=== PATIENT | female | born 1970 | race Caucasian/White ===

== ENCOUNTER 2017-03-23 15:02 | Emergency (ER) | payer OTHER ==
[2017-03-23 15:33] LABS: #Basophils 0.1 thou/uL (0.0-0.2); #Lymphocytes 2.1 thou/uL (1.20-3.40); #Monocytes 0.5 thou/uL (0.11-0.59); #Neutrophils 3.5 thou/uL (1.40-6.50); %Basophils 0.8 % (0.0-1.0); %Eosinophils 0.6 % (0.0-10.0); %Lymphocytes 33.8 % (21.0-51.0); %Monocytes 7.7 % (0.0-10.0); Hematocrit 39.5 % (36.0-47.0); Mean Platelet Volume 7.1 fL (7.4-10.4); Red Blood Cell (RBC) Count 4.11 mill/uL (4.20-5.40); White Blood Cell (WBC) Count 6.2 thou/uL (4.8-10.8)
[2017-03-23 15:57] LABS: ALT (SGPT) 13 U/L (8-55); AST (SGOT) 18 U/L (5-34); Alkaline Phosphatase 63 U/L (40-150); Anion Gap 14 mmol/L (10-20); BUN (Urea Nitrogen) 8 mg/dL (7.0-18.7); Bilirubin, Total 0.7 mg/dL (0.2-1.2); Calc. Creatinine Clearance 0 mL/min (70-130); Calcium 9.9 mg/dL (7.8-10.44); Carbon Dioxide 27 mmol/L (22-29); Chloride 101 mmol/L (98-107); Estimated GFR-MDRD 74; Globulin 2.8 g/dL (2.4-3.5); Lipase 90 U/L (8-78); Protein, Total 7.4 g/dL (6.0-8.3)
[2017-03-23 15:58] LABS: Bilirubin Negative (Negative); Blood, Urine Trace (Negative); Glucose, Urine (Dipstick) Negative (Negative); Ketone, Urine Negative (Negative); Nitrite Negative (Negative); Protein, Urine (Dipstick) Negative (Neg-Trace); Urobilinogen 0.2 mg/dL (0.2-1.0)
[2017-03-23 16:00] LABS: Bacteria/HPF None Seen HPF (None Seen); Hyaline Casts/LPF 0-3 HYALINE CAST LPF (0-3 Hyaline); Squamous Epithelial 0-3 HPF (0-3); WBC/HPF None Seen HPF (0-3)
[2017-03-23] MEDS ORDERED: Promethazine HCl 25 MG/ML VIAL ONE (16:31)
--- NOTE | 2017-03-23 18:50 | ULT ---
RIGHT UPPER QUADRANT ULTRASOUND: History: Abdominal pain. Comparison: CT abdomen and pelvis, 10-09-16. FINDINGS: Main portable vein is mildly distended. Gallbladder is normal. Hepatic echotexture is slightly increased. Common bowel duct measures 4 mm, n ormal. No cholelithiasis. The right kidney measures 9.9 x 4.1 x 4.2 cm. Mild right sided hydronephrosis. The pancreas is unremarkable. The spleen is unremarkable. IMPRESSION: 1. Mild right sided hydronephrosis. Otherwise, unremarkable exam. POS: OFF
--- NOTE | 2017-03-23 19:41 | CT ---
ABDOMEN AND PELVIS CT SCAN WITHOUT IV CONTRAST: History: 46-year-old female with nausea and vomiting. Surgical history of prior appendectomy, hysterectomy. Comparison: 10-09-16 FINDINGS: Noncontrast abdomen and pelvis CT scan is performed. The lung bases are clear. Small stable cysts in the anterior left lobe of the liver. Gallbladder, pa ncreas, spleen, and adrenal glands are unremarkable. No renal calculus or acute obstruction. Ther e is some very slight fullness of both the right and left renal upper collecting systems although th is is stable. Very small fat containing umbilical hernia. Status post appendectomy and hysterectomy. No abscess, adenopathy, or abnormal fluid collection. IMPRESSION: Unremarkable abdomen and pelvic CT scan. Stable appearance from prior study. No significant new proc ess. POS: JODIE
== END 2017-03-23 19:09 | disposition home or self-care (01) ==
LOC: ERS 15:02
DX: R10.11 Right upper quadrant pain (principal); R11.2 Nausea with vomiting, unspecified; F32.9 Major depressive disorder, single episode, unspecified; F41.9 Anxiety disorder, unspecified; E78.5 Hyperlipidemia, unspecified; J44.9 Chronic obstructive pulmonary disease, unspecified; Z86.19 Personal history of other infectious and parasitic diseases; Z87.891 Personal history of nicotine dependence
CPT/HCPCS: 36415; 74176; 76705; 80053; 81003; 81015; 83690; 85025; 96365; 96375; J2270; J2550

== ENCOUNTER 2017-04-13 08:29 | Outpatient (CLI) | payer OTHER ==
--- NOTE | 2017-04-13 15:52 | NM ---
HEPATOBILIARY SCAN: Date: 04/13/17 HISTORY: Gastroesophageal reflux disease without esophagitis, abdominal pain. No cholelithiasis on ultrasound of 03/23/17. RADIOPHARMACEUTICAL: 5.1 mCi technetium-99m mebrofenin injected intravenously. FINDINGS: There is good tracer extraction by the liver with prompt excretion into the biliary tract and small bowel loops and normal filling of the gallbladder. The calculated gallbladder ejection fraction foll owing an oral fatty meal measures 75%. IMPRESSION: Normal exam. POS: JODIE
== END 2017-04-13 08:30 | disposition home or self-care (01) ==
LOC: NM 08:29
PROVIDERS: ATTEND Internal Medicine
DX: R10.13 Epigastric pain (principal); K86.1 Other chronic pancreatitis; K21.9 Gastro-esophageal reflux disease without esophagitis
CPT/HCPCS: 78227; A9537

== ENCOUNTER 2017-04-30 18:21 | Observation (INO) | payer OTHER ==
[2017-04-30 19:15] LABS: #Basophils 0.1 thou/uL (0.0-0.2); #Eosinphils 0.1 thou/uL (0.0-0.7); #Monocytes 0.5 thou/uL (0.11-0.59); #Neutrophils 2.9 thou/uL (1.40-6.50); %Basophils 1.2 % (0.0-1.0); %Eosinophils 2.6 % (0.0-10.0); %Lymphocytes 35.3 % (21.0-51.0); %Monocytes 9.4 % (0.0-10.0); Hematocrit 35.6 % (36.0-47.0); Mean Platelet Volume 7.7 fL (7.4-10.4); Red Blood Cell (RBC) Count 3.68 mill/uL (4.20-5.40); White Blood Cell (WBC) Count 5.7 thou/uL (4.8-10.8)
--- NOTE | 2017-04-30 19:21 | RAD ---
FRONTAL VIEW CHEST 04/30/17 COMPARISON: 10/09/16 INDICATION: Pain. FINDINGS: The lungs are hyperinflated without consolidation or effusion. The cardiac silhouette is at upper limits of normal in size. IMPRESSION: No focal consolidation. POS: [facility]
[2017-04-30 19:33] LABS: Bilirubin Negative (Negative); Glucose, Urine (Dipstick) Negative (Negative); Nitrite Negative (Negative)
[2017-04-30 19:33] LABS: ALT (SGPT) 32 U/L (8-55); AST (SGOT) 26 U/L (5-34); Alkaline Phosphatase 60 U/L (40-150); Anion Gap 12 mmol/L (10-20); BUN (Urea Nitrogen) 11 mg/dL (7.0-18.7); Bilirubin, Total 0.3 mg/dL (0.2-1.2); Calc. Creatinine Clearance 0 mL/min (70-130); Calcium 9.1 mg/dL (7.8-10.44); Carbon Dioxide 25 mmol/L (22-29); Chloride 106 mmol/L (98-107); Estimated GFR-MDRD 82; Globulin 2.4 g/dL (2.4-3.5); Lipase 113 U/L (8-78); Protein, Total 6.5 g/dL (6.0-8.3)
[2017-04-30 19:36] LABS: Troponin I Less than 0.010 ng/mL (< 0.028)
[2017-04-30] MEDS ORDERED: Ketorolac Tromethamine 30 MG/ML VIAL ONE (19:46)
[2017-04-30] MEDS ORDERED: Promethazine HCl 25 MG/ML VIAL ONE (19:46)
[2017-04-30] MEDS ORDERED: Acetaminophen 1,000 MG in Premix Bag 1 BAG IVPB SCH (20:00)
--- NOTE | 2017-04-30 21:00 | ULT ---
GALLBLADDER ULTRASOUND: 04/30/17 INDICATION: Epigastric and right upper quadrant pain. COMPARISON: 03/23/17. FINDINGS: There is a subcentimeter hypoechoic focus of the hepatic parenchyma indicating a cyst. No acute gall bladder pathology. Common duct is normal measuring 3 mm. There is no ascites. Persistent areas of sh adowing from bowel content do limit assessment of the right upper quadrant. IMPRESSION: No acute gallbladder pathology. Additional details are described above. POS: JODIE
[2017-04-30 21:11] LABS: Ketone, Urine Negative (Negative); Protein, Urine (Dipstick) Negative (Neg-Trace)
[2017-04-30 21:12] LABS: Blood, Urine Negative (Negative); Urobilinogen 0.2 mg/dL (0.2-1.0)
[2017-04-30] MEDS ORDERED: Morphine 10 MG/ML VIAL ONE (23:02)
[2017-05-01] MEDS ORDERED: Morphine 4 MG/ML VIAL IV PRN (00:30)
[2017-05-01] MEDS ORDERED: Sodium Chloride 0.9% 1,000 ML IV SCH ×2 (00:33→00:45)
[2017-05-01] MEDS ORDERED: Ondansetron HCl/PF 4 MG/2 ML Vial IVP PRN ×2 (00:33→09:14)
[2017-05-01] MEDS ORDERED: Acetaminophen 325 MG TAB PO PRN (00:33)
[2017-05-01] MEDS ORDERED: Ondansetron ODT 4 MG TAB SL PRN (00:33)
[2017-05-01] MEDS ORDERED: traMADol HCl 50 MG TAB PO PRN (00:48)
[2017-05-01] MEDS: Promethazine 25 MG TAB PO PRN ×3 (01:55→12:07)
[2017-05-01] MEDS: Morphine 4 MG/ML VIAL SLOW IVP PRN ×3 (03:39→13:56)
[2017-05-01 05:27] LABS: #Basophils 0.1 thou/uL (0.0-0.2); #Eosinphils 0.2 thou/uL (0.0-0.7); #Lymphocytes 1.8 thou/uL (1.20-3.40); #Monocytes 0.5 thou/uL (0.11-0.59); #Neutrophils 1.6 thou/uL (1.40-6.50); %Basophils 1.2 % (0.0-1.0); %Eosinophils 3.8 % (0.0-10.0); %Lymphocytes 44.5 % (21.0-51.0); %Monocytes 11.3 % (0.0-10.0); Mean Platelet Volume 7.8 fL (7.4-10.4); White Blood Cell (WBC) Count 4.1 thou/uL (4.8-10.8)
[2017-05-01 06:08] LABS: Anion Gap 9 mmol/L (10-20); BUN (Urea Nitrogen) 8 mg/dL (7.0-18.7); Calc. Creatinine Clearance 0 mL/min (70-130); Calcium 8.5 mg/dL (7.8-10.44); Carbon Dioxide 26 mmol/L (22-29); Chloride 107 mmol/L (98-107); Estimated GFR-MDRD Greater than 90
[2017-05-01] MEDS: Pancrelipase DR 12000 1 CAP PO SCH ×2 (07:53→12:29)
[2017-05-01] MEDS ORDERED: Citalopram 20 MG TAB PO SCH (09:00)
[2017-05-01] MEDS ORDERED: Famotidine 20 MG TAB PO SCH (09:00)
[2017-05-01] MEDS ORDERED: ALPRAZolam 0.5 MG TAB PO SCH (09:00)
[2017-05-01] MEDS ORDERED: Acetaminophen 325 MG TAB PO SCH ×2 (09:30→13:00)
--- NOTE | 2017-05-01 10:10 | HP-2 ---
ADMISSION DATE: 04/30/2017 CODE STATUS: FULL. PRIMARY CARE PHYSICIAN: Dr. Livia Valle in [place]. ATTENDING: Daniel De Jesus M.D. RESIDENT: Dorys Flowers M.D. SPECIALIST: GI, Dr. Aguilar. MANAGER STRATEGY: Dr. Anthony. CHIEF COMPLAINT: Abdominal pain, nausea, and vomiting. HISTORY OF PRESENT ILLNESS: This is a 46-year-old female with past medical history of coronary artery disease, hyperlipidemia, and chronic pancreatitis who presents to the ED complaining of abdominal pain, nausea, and vomiting. She started having increased pain about a week ago, was having changes in her bowels. So, her GI doctor decided that next Thursday they are going to do the swallow camera to take a look at her small bowel. However, today the pain got much worse, so she was unable to wait until her appointment on Thursday. The pain is constant, sharp, 6/10, radiates to the back. Located in the right upper quadrant and midepigastric regions. She has had several episodes of vomiting all week and has thrown up to 3 to 4 times today. She reports that she has lost about 10 pounds in the last month. She says that morphine usually helps the pain whenever she has been admitted for this in the past. She takes Tylenol and tramadol at home for this pain. In the ER, she was given Toradol 30 mg, morphine 2 mg, Phenergan 25 mg, and Tylenol IV. PAST MEDICAL HISTORY: 1. Coronary artery disease status post CO with 1 stent. 2. Chronic pancreatitis. 3. Hyperlipidemia. 4. COPD. 5. PTSD. 6. Anxiety. 7. Depression. PAST SURGICAL HISTORY: 1. Cardiac stent x1 in 2012. 2. Appendectomy. 3. Hysterectomy. ALLERGIES: 1. AZITHROMYCIN. 2. CODEINE. 3. ERYTHROMYCIN. 4. IODINE. 5. NORCO. 6. RANOLAZINE. 7. PREDNISONE. MEDICATIONS: 1. Zantac 150 mg t.i.d. 2. Bentyl 20 mg q.6 hours p.r.n. 3. Phenergan 25 mg one half to one tablet q.6 hours p.r.n. 4. Xanax 0.5 to 2 mg daily. 5. Aspirin 325 mg daily. 6. Citalopram 40 mg daily. 7. Simvastatin 20 mg daily. 8. Creon 1 capsule with each meal. FAMILY HISTORY: Mother, coronary artery disease. Grandfather, coronary artery disease. SOCIAL HISTORY: Used to smoke 4 years ago, 1 to 2 packs per day for 30 years. No current tobacco use. No current alcohol use, but used to drink, quit in December. No drug use. REVIEW OF SYSTEMS: General: Denies fever or chills. Reports 10-pound weight loss in the last month. Eyes: No vision changes or eye pain. ENT: Denies rhinorrhea or sore throat. Respiratory: Denies cough or shortness of breath. Cardiovascular: Denies chest pain. Reports occasional flutters associated with bradycardia. Denies edema. Gastrointestinal: Positive for nausea, vomiting, diarrhea, constipation, and abdominal pain. Genitourinary: Negative for incontinence or dysuria. Skin: Negative for rashes or jaundice. Musculoskeletal: Negative for pain or tenderness. Neurologic: Negative for weakness, numbness or syncope. Psychiatric: Positive for anxiety. Negative for depression. PHYSICAL EXAMINATION: VITAL SIGNS: Blood pressure 116/75, pulse 55, respiratory rate 18, temperature 98.0, pulse ox 96% on room air, current weight 58.5 kilograms. GENERAL: Alert and oriented x3, no acute distress, well-nourished, appropriately interactive. HEENT: Pupils equal, round, reactive to light. Extraocular muscles intact. Conjunctivae within normal limits. ENT: Nasal mucosa and oropharynx within normal limits. NECK: Supple, no lymphadenopathy. CARDIOVASCULAR: Regular rate and rhythm. No murmurs, gallops, 2+ radial and pedal pulses. RESPIRATORY: Normal effort, no retractions, clear to auscultation bilaterally. SKIN: Warm, dry. No cyanosis or lesions. ABDOMEN: Soft, tender to palpation in the midepigastric and right upper quadrant regions. No rebound or guarding. Positive bowel sounds x4 quadrants. No mass or distention. EXTREMITIES: No clubbing, cyanosis, or edema. MUSCULOSKELETAL: Structure and tone within normal limits, 5/5 muscle strength. Full range of motion. NEUROLOGICAL: No focal deficits. Sensation within normal limits. PSYCHIATRIC: Appropriate. LABORATORY DATA AND IMAGING: WBC 5.6, hemoglobin 11.6, hematocrit 35.6, and platelets 239. Sodium 139, potassium 3.7, chloride 106, CO2 25, BUN 11, creatinine 0.75, GFR 82, glucose 91, calcium 9.1, total protein 6.5, albumin 4.1 , total bilirubin 0.3, AST 26, ALT 32, alkaline phosphatase 60, amylase 155, and lipase 113. Urinalysis negative. Chest x-ray, no focal consolidation. Abdominal ultrasound, no acute gallbladder pathology. ASSESSMENT AND PLAN: This is a 46-year-old female who presents with: 1. Chronic pancreatitis with some mild elevation in amylase and lipase. Patient is having uncontrolled pain and nausea. We will start on clears and advance diet as tolerated. We will give Phenergan q.6 hours p.r.n., morphine q.4 hours p.r.n. pain. We will notify Dr. Aguilar in the morning, the patient is here. We will check LDH level. We will give normal saline at 100 mL per hour overnight. 2. Mild normocytic anemia likely secondary to chronic disease. We will monitor and have patient follow up outpatient. 3. Chronic kidney disease stage 2. Patient is at baseline creatinine based on past admission levels. We will monitor. 4. Coronary artery disease. Continue home medications. 5. Hyperlipidemia. Continue home medications. 6. Chronic obstructive pulmonary disease, nebs p.r.n. The patient not having any exacerbation, currently satting 96% on room air. 7. Anxiety. Continue home medications. 8. Depression. Continue home medications. 9. Post-traumatic stress disorder. Continue home medications. 10. Deep venous thrombosis prophylaxis. Sequential compression devices as patient is low risk. DISPOSITION: [facility] medical. Symptomatic medication will be provided. History and physical exam as well as management discussed with Dr. De Jesus. Patient evaluated on rounds. I agree with thompson portions of H&P above. Long history of chronic abdominal pain and diagnosis of chronic pancreatitis. She had mild elevation of amylase and lipase. Exam is benign with minimal epigastric tenderness. Patient is not in acute distress. We will use Reglan and IV pain meds for now. She complains of constipation, so will also try an enema to see if that will help relieve some of the pain. HONG De Jesus MD [facility]
[2017-05-01] MEDS ORDERED: Pregabalin 25 MG CAP PO SCH ×2 (10:30→21:00)
[2017-05-01] MEDS ORDERED: Metoclopramide HCl 10 MG TAB PO SCH (11:30)
[2017-05-01 12:02] VITALS: BP 100/64; TEMP 98.2
[2017-05-01] MEDS ORDERED: Simethicone Chewable 80 MG TAB PO SCH (13:15)
[2017-05-01] MEDS ORDERED: Atorvastatin Calcium 10 MG TAB PO SCH (21:00)
--- NOTE | 2017-05-04 08:16 | DIS-2 ---
DATE OF ADMISSION: 04/30/2017 DATE OF DISCHARGE: 05/01/2017 ADMITTING ATTENDING: Daniel De Jesus M.D. DISCHARGE ATTENDING: Daniel De Jesus M.D. RESIDENT: Issac green, PGY1. CONSULTS: None. PROCEDURES: None. IMAGING: She had a chest x-ray 04/30/2017, which showed no focal consolidation. She had an abdominal ultrasound on 04/30/2017, which showed no acute gallbladder pathology and additional details as described above. HOSPITAL COURSE: This is a 46-year-old female who presents with a history of chronic pancreatitis, complaining of abdominal pain, nausea, and vomiting, started having an increased pain about a week ago and having changes in her bowel saying decreased bowels. Said the pain got so bad that she had to come in , was sharp, radiated to the back, was 6/10, and had right upper quadrant midepigastric pain. She had thrown up 3-4 times that day. She says she has not been able to eat the last month, has lost about 10 pounds. She had an appointment with Dr. Aguilar the following Thursday for a small bowel follow through but said she could not wait until Thursday. During this time, which she is admitted, she was started on Phenergan, IV Toradol, started on tramadol as well at this time. She had been in before with this type of pain, so we decided to start her on some other medicines. We started her on pregabalin, started her on Reglan, and continue to monitor her at this time. Her pain got better and improved. She was on a clear liquid diet, and tolerated it without any nausea or vomiting. At this time, there is nothing more we can do for her pain to maximize, so we sent her home with the pregabalin and the Reglan and told her to follow up with Dr. Aguilar as needed. The patient did have some pain seeking qualities that she was constantly asking for Phenergan stating that IV morphine was not helping the pain, had to get it all the time. When we did go in the room, she would look to be resting comfortably, did not look like someone that was having acute abdominal pain. DISPOSITION: Stable. DISCHARGE INSTRUCTIONS: 1. Location: Home. 2. Activity: Activity as tolerated. 3. Diet: Advance diet as tolerated, likely regular diet. 4. Followup: Will follow up with Dr. Aguilar on Thursday and will follow up with her primary care within 2 weeks for hospital followup. EDGAR
--- NOTE | 2017-06-20 10:40 | EKG ---
Test Reason : Blood Pressure : / mmHG Vent. Rate : 050 BPM Atrial Rate : 050 BPM P-R Int : 138 ms QRS Dur : 094 ms QT Int : 472 ms P-R-T Axes : 064 050 050 degrees QTc Int : 430 ms Sinus bradycardia Incomplete right bundle branch block Septal infarct , age undetermined Abnormal ECG Confirmed by YOLANDE JOHNSON M.D. ([id number]), image editor FILIBERTO SAUCEDO ([id number]) on 06/20/2017 10:39:55 AM Referred By: Confirmed By:YOLANDE JOHNSON M.D.
== END 2017-05-01 16:20 | disposition home or self-care (01) ==
LOC: ERS 18:21 → 2SW 22:30
PROVIDERS: ADMIT Family Medicine; ATTEND Family Medicine
DX: K86.1 Other chronic pancreatitis (principal); D63.8 Anemia in other chronic diseases classified elsewhere; N18.2 Chronic kidney disease, stage 2 (mild); E78.5 Hyperlipidemia, unspecified; J44.9 Chronic obstructive pulmonary disease, unspecified; F41.9 Anxiety disorder, unspecified; F32.9 Major depressive disorder, single episode, unspecified; F43.10 Post-traumatic stress disorder, unspecified; I25.10 Atherosclerotic heart disease of native coronary artery without angina pectoris; I25.2 Old myocardial infarction; Z79.82 Long term (current) use of aspirin; Z79.899 Other long term (current) drug therapy; Z88.8 Allergy status to other drugs, medicaments and biological substances; Z88.1 Allergy status to other antibiotic agents; Z88.5 Allergy status to narcotic agent; Z91.013 Allergy to seafood; Z95.818 Presence of other cardiac implants and grafts; Z90.49 Acquired absence of other specified parts of digestive tract; Z90.710 Acquired absence of both cervix and uterus; Z87.891 Personal history of nicotine dependence; Z82.49 Family history of ischemic heart disease and other diseases of the circulatory system
CPT/HCPCS: 36415; 71010; 76705; 80048; 80053; 81003; 81015; 82150; 82553; 83615; 83690; 84484; 85025; 87086; 93005; 96365; 96366; 96375; 96376; G0378; J0131; J1885; J2270; J2550

== ENCOUNTER 2017-05-03 00:44 | Observation (INO) | payer OTHER ==
[2017-05-03] MEDS ORDERED: Ondansetron HCl/PF 4 MG/2 ML Vial ONE (03:07)
[2017-05-03] MEDS ORDERED: Morphine 10 MG/ML VIAL ONE (03:07)
[2017-05-03] MEDS ORDERED: Sodium Chloride 0.9% 1,000 ML IV SCH (03:34)
[2017-05-03] MEDS ORDERED: Simethicone Chewable 80 MG TAB PO PRN (03:34)
[2017-05-03] MEDS ORDERED: Acetaminophen 325 MG TAB PO PRN (03:34)
[2017-05-03] MEDS ORDERED: Enoxaparin Sodium 40 MG/0.4 ML SYRINGE SC SCH (04:00)
[2017-05-03 04:52] VITALS: BMI 22.5
--- NOTE | 2017-05-03 07:38 | HP-2 ---
CODE STATUS: FULL. PRIMARY CARE PHYSICIAN: Dr. Valle in [place]. ATTENDING: Daniel De Jesus M.D. RESIDENT: Nitin Dyer M.D. HISTORIAN: The patient. SPECIALISTS: GI, Dr. Jorje Aguilar M.D.; Cardiology, Dr. Shaina Anthony. CHIEF COMPLAINT: Abdominal pain. HISTORY OF PRESENT ILLNESS: Ms. Janet Oakley is a 46-year-old female with past medical history of coronary artery disease, hyperlipidemia, chronic pancreatitis, who presents to the emergency department complaining of abdominal pain. The patient was recently admitted on 04/30/2017 with abdominal pain, nausea, and vomiting, and was discharged on 05/01/2017. The patient states that her pain was present when she was discharged at last visit and has been constant since then. She was transferred from [facility] with the constant sharp burning epigastric pain that radiates to her back. She rates the pain as 4/10. She denies any vomiting, but she states that she has been nauseous. The patient states that she has lost 10 pounds over the last month and a half. PAST MEDICAL HISTORY: 1. CAD. 2. Myocardial infarction, status post 1 stent. 3. Chronic pancreatitis. 4. Hyperlipidemia. 5. COPD. 6. PTSD. 7. Anxiety. 8. Depression. PAST SURGICAL HISTORY: 1. Cardiac stent x1 in 2012. 2. Appendectomy. 3. Hysterectomy. ALLERGIES: 1. AZITHROMYCIN. 2. ERYTHROMYCIN. 3. CODEINE. 4. IODINE. 5. NORCO. 6. PREDNISONE. 7. RANOLAZINE. MEDICATIONS: 1. Zantac 150 mg t.i.d. 2. Bentyl 20 mg q.6 hours p.r.n. 3. Phenergan 25 mg p.o. q.6 hours. p.r.n. 4. Xanax 0.5 to 2 mg p.o. daily. 5. Aspirin 325 mg p.o. daily. 6. Citalopram 40 mg p.o. daily. 7. Simvastatin 20 mg p.o. daily. 8. Creon 1 capsule every meal. FAMILY HISTORY: Mother had coronary artery disease and grandfather had coronary artery disease. SOCIAL HISTORY: The patient has 1-2 packs per day smoking history for 30 years , but quit 4 years ago. Started drinking heavily after her parents both in 2006, but quit drinking alcohol in December. She denied any drug use. 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 REVIEW OF SYSTEMS: Twelve point review of systems including general, HEENT, respiratory, CV, GI, , skin, musculoskeletal, neuro, and psych were negative with the exception of decreased appetite and weight change of 10 pounds in the last 1-1/2 months, and nausea, vomiting, and diarrhea since yesterday as well as anxiety that is chronic. PHYSICAL EXAMINATION: VITAL SIGNS: Blood pressure 131/68, pulse 59, respiratory rate 16, T-max 97.7, pulse ox 98% on room air, current weight 60 kg. GENERAL: The patient is alert and oriented x4, no acute distress. Well- developed, well-nourished, and appropriately interactive. EYES: Pupils are equal, round, and reactive to light and accommodation. Extraocular muscles are intact. Conjunctivae within normal limits. ENT: Tympanic membranes pearly morrissey without bulging or erythema. Nasal mucosa and oropharynx within normal limits. NECK: Supple without lymphadenopathy or thyromegaly. CARDIOVASCULAR: Regular rate and rhythm. No murmurs or gallops. Radial pulses and pedal pulses equal. RESPIRATORY: Normal effort, no retractions. LUNGS: Clear to auscultation bilaterally. SKIN: Warm and dry without cyanosis or lesions. ABDOMEN: Soft, diffuse tenderness to palpation. No rebound or guarding. Bowel sounds x4. No masses or distention. EXTREMITIES: No clubbing, cyanosis, or edema. MUSCULOSKELETAL: Structure and tone within normal limits. Full range of motion. NEUROLOGIC: No focal deficits. Sensation within normal limits. PSYCHIATRIC: Appropriate. LABORATORY DATA: White blood cell count 4.4, hemoglobin 12.6, hematocrit 37.2, platelets 217. Sodium 141, potassium 3.9, chloride 105, bicarbonate 27, BUN 15 , creatinine 0.75, glucose 93, calcium 9.0, amylase 192, lipase 111. ASSESSMENT AND PLAN: Ms. Janet Oakley is a 46-year-old female with past medical history of chronic pancreatitis, who presents with abdominal pain and nausea. 1. Chronic pancreatitis. The patient was unable to pick up worker discharge medications from last admission. Pain is continuous since discharge. Scheduled to have procedure done with Dr. Aguilar, Gastroenterology on Thursday. Admit to observation. Morphine p.r.n. for pain, IV fluids at 100 mL an hour, Tylenol p.r.n. for pain, Reglan for nausea, clear liquid diet, and simethicone. 2. Anxiety. Continue home medications. 3. Coronary artery disease. Continue statin. 4. Depression. Continue home medications. 5. Hyperlipidemia. Consider fasting lipid panel in the morning. 6. Activity: Ad brittny. 7. Code status. FULL. DISPOSITION AND LENGTH OF HOSPITAL STAY: Two days. Symptomatic medications will be provided. History and physical exam as well as management discussed with Dr. De Jesus. Patient seen on rounds and reviewed. I agree with thompson portions of history, physical and exam above with the following addendum. Ms. Oakley returns with abdominal pain and history of chronic pancreatitis. Her amylase and lipase are mildly elevated. She is eating soup and crackers at home. We had recommended Lyrica and simethicone which she did not obtain after discharge. We also felt she was constipated and suggested an enema which she refused. We will make her NPO, give her IV fluids, bowel rest and Lyrica for now. We would like for her to keep GI appointment on Thursday. HONG HERNÁNDEZ
[2017-05-03] MEDS ORDERED: Nitroglycerin 0.4 MG TAB (25 Tab Bottle) SL PRN (07:48)
[2017-05-03] MEDS ORDERED: Acetaminophen 500 MG TAB PO PRN (07:48)
[2017-05-03] MEDS ORDERED: traMADol HCl 50 MG TAB PO PRN (07:48)
[2017-05-03] MEDS: Metoclopramide HCl 10 MG/10 ML UDCUP PO SCH ×4 (08:45→19:49)
[2017-05-03] MEDS: Pancrelipase DR 12000 1 CAP PO SCH ×3 (08:46→16:26)
[2017-05-03] MEDS: Citalopram 20 MG TAB PO SCH (08:47)
[2017-05-03] MEDS: Famotidine 20 MG TAB PO SCH ×2 (08:47→19:49)
[2017-05-03] MEDS: Multivit, Chewable SF 1 TAB PO SCH (08:47)
[2017-05-03] MEDS: Saccharomyces boulardii 250 MG CAP PO SCH (08:47)
[2017-05-03] MEDS: Morphine 4 MG/ML VIAL SLOW IVP PRN ×3 (08:48→16:56)
[2017-05-03] MEDS: Pregabalin 25 MG CAP PO SCH ×2 (10:05→20:15)
[2017-05-03] MEDS: Lactated Ringer's 1,000 ML IV SCH ×2 (10:13→19:48)
[2017-05-03] MEDS ORDERED: ALPRAZOLAM 1 MG PO SCH (12:30)
[2017-05-03] MEDS: ALPRAZOLAM 1 MG PO SCH (12:36)
[2017-05-03] MEDS ORDERED: Atorvastatin Calcium 10 MG TAB PO SCH (21:00)
[2017-05-04] MEDS: Morphine 4 MG/ML VIAL SLOW IVP PRN ×2 (01:39→08:20)
[2017-05-04] MEDS: Lactated Ringer's 1,000 ML IV SCH (07:18)
[2017-05-04] MEDS: Pancrelipase DR 12000 1 CAP PO SCH (08:18)
[2017-05-04] MEDS: Metoclopramide HCl 10 MG/10 ML UDCUP PO SCH ×2 (08:19→11:46)
[2017-05-04] MEDS: Saccharomyces boulardii 250 MG CAP PO SCH (08:20)
[2017-05-04] MEDS: Citalopram 20 MG TAB PO SCH (08:20)
[2017-05-04] MEDS: Multivit, Chewable SF 1 TAB PO SCH (08:20)
[2017-05-04] MEDS: Famotidine 20 MG TAB PO SCH (08:20)
--- NOTE | 2017-05-04 08:30 | PDOC.FM ---
- Subjective Subjective: Pt feeling better this morning. Says pain is doing a little better. Is asking for coffee this morning. States pain is still present. Says she thinks new medicines are helping some. Per nursing pt had no vomitting, and slept well all night. No acute events - Objective MAR Reviewed: Yes Vital Signs & Weight: Vital Signs (12 hours) Temp Pulse Resp BP BP Pulse Ox 05/04/17 07:40 98.3 F 64 16 114/64 94 L 05/04/17 07:30 98.6 F 51 L 14 05/04/17 04:50 98.6 F 51 L 14 103/53 L 87 L Weight Weight 61.507 kg I&O: 05/03/17 05/04/17 05/05/17 06:59 06:59 06:59 Intake Total 250 2376 1 Balance 250 2376 1 Additional Labs: Laboratory Tests 05/02/17 05/02/17 20:40 20:40 WBC 4.4 L RBC 3.91 L Hgb 12.6 MCV 95.2 Plt Count 217 Sodium 141 Potassium 3.9 Chloride 105 Carbon Dioxide 27 Anion Gap 13 BUN 15 Creatinine 0.75 Estimated GFR (MDRD) 82 Glucose 93 Calcium 9.0 Amylase 192.0 H Lipase 111 H <Zach Lowery - Last Filed: 05/04/17 08:30> - Objective Vital Signs & Weight: Vital Signs (12 hours) Temp Pulse Resp BP BP Pulse Ox 05/04/17 10:37 100.1 F H 86 12 114/69 95 05/04/17 07:40 98.3 F 64 16 114/64 94 L 05/04/17 07:30 98.6 F 51 L 14 05/04/17 04:50 98.6 F 51 L 14 103/53 L 87 L Weight Weight 61.507 kg I&O: 05/03/17 05/04/17 05/05/17 06:59 06:59 06:59 Intake Total 250 2376 1 Balance 250 2376 1 <Devon Bryson - Last Filed: 05/04/17 12:22> Phys Exam - Physical Examination HEENT: PERRLA, moist MMs, oral pharynx no lesions Neck: no nodes, no JVD, supple, full ROM Respiratory: no wheezing, no rales, no rhonchi, clear to auscultation bilateral Cardiovascular: RRR, no significant murmur, no rub Gastrointestinal: soft, no distention, positive bowel sounds Mild pain to palpation in all 4 quadrants Musculoskeletal: no edema, pulses present Neurological: non-focal, normal sensation, moves all 4 limbs Lymphatic: no nodes Psychiatric: normal affect, A&O x 3 Skin: no rash <Zach Lowery - Last Filed: 05/04/17 08:30> Dx/Plan (1) Chronic pancreatitis Code(s): K86.1 - OTHER CHRONIC PANCREATITIS Status: Chronic Qualifiers: 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 Will advance diet later today -Restarted home meds -Added lyrica, simethicone and probiotic at this time. -Has outside appointment with Dr. Aguilar tmrw for small bowel follow through. -Spoke with Dr. Aguilar and will likely refer for endoscopic ultrasound as well. No further testing for here at [facility]. -Pt ready for D/c today. (2) Anxiety Code(s): F41.9 - ANXIETY DISORDER, UNSPECIFIED Status: Chronic Plan: -continue home meds (3) Hyperlipidemia Code(s): E78.5 - HYPERLIPIDEMIA, UNSPECIFIED Status: Chronic Plan: -continue home meds (4) CAD (coronary artery disease) Code(s): I25.10 - ATHSCL HEART DISEASE OF [place] CORONARY ARTERY W/O ANG PCTRS Status: Acute Qualifiers: Qualified Code(s): I25.10 - Atherosclerotic heart disease of [place] coronary artery without angina pectoris Plan: -continue home meds. <Zach Lowery - Last Filed: 05/04/17 08:30> Attending Addendum - Attending Addendum I personally evaluated the patient and discussed the management with Dr. Lowery. I agree with the History, Examination, Assessment and Plan documented above with any addition or exceptions noted below. Patient with chronic pancreatitis but no change in baseline lipase level. Reports constant and chronic pain, though somewhat improved today. She has outpatient follow up scheduled with Dr. Aguilar tomorrow and referral for EUS. She feels well and feels like she can tolerate diet at home at her current pain level. She will be discharged today if she tolerates lunch well. <Devon Bryson - Last Filed: 05/04/17 12:22>
[2017-05-04] MEDS: Pregabalin 25 MG CAP PO SCH (09:06)
[2017-05-04] MEDS: ALPRAZOLAM 1 MG PO SCH (09:06)
[2017-05-04 11:08] VITALS: BP 114/69; TEMP 100.1
--- NOTE | 2017-05-04 21:52 | DIS-2 ---
DATE OF ADMISSION: 05/03/2017 DATE OF DISCHARGE: 05/04/2017 RESIDENT: Zach Lowery, PGY-1. ADMITTING ATTENDING: Dr. De Jesus. DISCHARGE ATTENDING: Dr. Bryson. CONSULTATIONS: None. PROCEDURES: None. PRIMARY DIAGNOSES: 1. Chronic pancreatitis pain flare. 2. Anxiety. 3. Hyperlipidemia. 4. History of coronary artery disease. DISCHARGE MEDICATIONS: New meds were pregabalin 25 mg p.o. b.i.d. and Florastor 250 mg p.o. daily. Alprazolam 1 mg tab ER 1 mg p.o. daily 0.5 mg, Xanax 0.25 mg p.o. q.24 hours, 500 mg acetaminophen t abs q.6 hours, 81 mg of aspirin daily, citalopram 40 mg daily, Creon t.i.d. with meals, 30 mL p.o. q .6 hours Maalox plus, Reglan 10 mg p.o. a.c. and at bedtime, multivitamin 1 tab daily, 0.4 mg sublin gual nitro, 25 mg p.o. q.4 hours Phenergan, 150 mg p.o. daily ranitidine, 80 mg p.o. at bedtime simethicone, 20 mg p.o. daily simvastatin and 50 mg p.o. q.6 hours tramadol HC L. DISCONTINUED MEDICATIONS: None. HISTORY OF PRESENT ILLNESS/BRIEF HOSPITAL COURSE: This is a 46-year-old female who came in complain ing of abdominal pain. The patient was recently admitted on 04/30 and discharged on 05/01. She sta juan j that she had pain when she was discharged last visit and that she was started on a few meds, pre gabalin and simethicone, but she did not go get her medicines filled. She comes back in today sayin g she has a constant, sharp, burning pain that radiates to her back. She says the pains are 4/10. She has not had any vomiting, but has not been able to eat. She says that she has been having episo deni of diarrhea today. During this time, her amylase was 192 and her lipase was 111. The rest of h er BMP was normal. Nothing abnormal on hematologic. Her white blood cell count was actually low at 4.4. During this time, we decided to treat her like she was having an acute pancreatitis flare. Francoise hernandez kept her n.p.o. and if she had any episodes of vomiting, we are going to place an NG tube. She di d not have any episodes of vomiting while here. We started her again on the simethicone and pregaba jodi. We also at this time added probiotic and kept her overnight to manage pain. She got Phenergan and morphine as needed for the pain. The next day, she reported doing better, was wanting to eat a nd wanting to have coffee. At this time, she was stable enough to be discharged. She also has a [facility] appointment Thursday with Dr. Aguilar, who is going to do a small bowel follow through and Dr. Ketty stafford has been following closely with her chronic pancreatitis and her pain. So, at this time, she was discharged. DISPOSITION: Stable. DISCHARGE INSTRUCTIONS: 1. Location: Home. 2. Diet: We recommend that she do a clear liquid diet and advance as tolerated. 3. Activity: Just any activity that does not aggravate the pain. 4. Followup: She will follow up with Dr. Aguilar for small bowel follow through and will follow up wi th her primary care doctor for hospital stay visit within the next 2 weeks.
== END 2017-05-04 12:06 | disposition home or self-care (01) ==
LOC: ERS 00:44 → 2SW 02:00
PROVIDERS: ADMIT Internal Medicine; ATTEND Internal Medicine
DX: K86.1 Other chronic pancreatitis (principal); E78.5 Hyperlipidemia, unspecified; I25.10 Atherosclerotic heart disease of native coronary artery without angina pectoris; I25.2 Old myocardial infarction; J44.9 Chronic obstructive pulmonary disease, unspecified; F43.10 Post-traumatic stress disorder, unspecified; F32.9 Major depressive disorder, single episode, unspecified; F41.9 Anxiety disorder, unspecified; Z79.82 Long term (current) use of aspirin; Z79.899 Other long term (current) drug therapy; Z88.8 Allergy status to other drugs, medicaments and biological substances; Z88.1 Allergy status to other antibiotic agents; Z91.041 Radiographic dye allergy status; Z88.5 Allergy status to narcotic agent; Z91.013 Allergy to seafood; Z95.818 Presence of other cardiac implants and grafts; Z90.49 Acquired absence of other specified parts of digestive tract; Z90.710 Acquired absence of both cervix and uterus; Z87.891 Personal history of nicotine dependence
CPT/HCPCS: 96361; 96374; 96375; 96376; G0378; J2270; J2405; J7120

== ENCOUNTER 2017-06-02 10:33 | Observation (INO) | payer OTHER ==
[2017-06-02] MEDS ORDERED: Nitroglycerin 2% Ointment 1 INCH/1 GM Packet ONE (11:38)
[2017-06-02] MEDS ORDERED: Fentanyl 100 MCG/2 ML VIAL ONE (12:21)
[2017-06-02 12:57] LABS: Troponin I Less than 0.010 ng/mL (< 0.028)
--- NOTE | 2017-06-02 13:20 | HP ---
DATE OF ADMISSION: 06/02/2017 PRIMARY CARE PHYSICIAN: Dr. Valle. PRIMARY PROFESSOR SCULPTURE: Dr. Anthony. CHIEF COMPLAINT: Chest discomfort. HISTORY OF PRESENT ILLNESS: Patient is a 46-year-old female with coronary artery disease, status pos t RCA stent, and hyperlipidemia. She presented to the emergency room at [facility] with chest discomfo rt. She was transferred to this facility for hospital admission. The chest discomfort started this morning when she was at work. It was moderate in intensity, left-s ided, radiating to her neck. It was pressure-like more or less constant. She denies any aggravating or relieving factor. She felt lightheaded and fatigued; however, denies any palpitations, syncope, or dyspepsia. No recent immobilization, travel except for hospitalization last month for chronic zamarripa creatitis. She was out of aspirin recently for endoscopic ultrasound. She restarted aspirin a few d ays ago. She took two sublingual nitroglycerin at home without much relief after which she called EM S. At [facility], her initial vital signs showed temperature 98.3, respirations 18, pulse o f 63, blood pressure 118/80. Her O2 saturation 99% on room air. EKG showed sinus bradycardia withou t significant ST-T wave changes. Chest x-ray was negative. She received 50 mcg fentanyl, 6.25 mg of Phenergan, 325 mg of aspirin, and sublingual nitroglycerin at [facility] and [facility] She currently has a nitropatch and continues to have chest discomfort. PAST MEDICAL HISTORY: 1. Recent hospitalization for pancreatitis. 2. Coronary artery disease, status post RCA stent. 3. Chronic pancreatitis. 4. Hyperlipidemia. 5. Chronic obstructive pulmonary disease. 6. Anxiety, depression, and posttraumatic stress disorder. PAST SURGICAL HISTORY: 1. Recent endoscopic ultrasound. 2. Coronary stent placement in RCA in 2012. She had a repeat catheterization in 2014. 3. Appendectomy. 4. Hysterectomy. ALLERGIES: Patient is allergic to multiple medications including RANEXA, PREDNISONE, NORCO, IODINE, CODEINE, ERYTHROMYCIN, and AZITHROMYCIN. CURRENT HOME MEDICATIONS: The patient did not bring accurate list of medications. Daughter will randee ng all her medications later today. FAMILY HISTORY: Positive for mother and grandfather with coronary artery disease. SOCIAL HISTORY: She is a former smoker. She smoked for around 30 years. She quit approximately 4 y ears ago. She also has a history of alcohol abuse in the past. She denies any drug use. REVIEW OF SYSTEMS: The following complete review of systems was negative, unless otherwise mentioned in the HPI or below: Constitutional: Weight loss or gain, ability to conduct usual activities. Skin: Rash, itching. Eyes: Double vision, pain. ENT/Mouth: Nose bleeding, neck stiffness, pain, tenderness. Cardiovascular: Palpitations, dyspnea on exertion, orthopnea. Respiratory: Shortness of breath, wheezing, cough, hemoptysis, fever or night sweats. Gastrointestinal: Poor appetite, abdominal pain, heartburn, nausea, vomiting, constipation, or diarrh ea. Genitourinary: Urgency, frequency, dysuria, nocturia. Musculoskeletal: Pain, swelling. Neurologic/Psychiatric: Anxiety, depression. Allergy/Immunologic: Skin rash, bleeding tendency. PHYSICAL EXAMINATION: VITAL SIGNS: As discussed above. GENERAL: A 46-year-old female in no apparent distress. Feels generally weak and fatigued. HEENT: Head is atraumatic, normocephalic. Sclerae are anicteric. Moist mucous membranes. No oral lesion. NECK: Supple, no JVD appreciated. No carotid bruit. LUNGS: Clear to auscultation bilaterally. HEART: S1 and S2 present. Regular rate and rhythm. No murmurs, rubs, or gallops appreciated. ABDOMEN: Soft, nontender, bowel sounds present. EXTREMITIES: No edema or calf tenderness. NEUROLOGIC: Grossly nonfocal, moves all four extremities. PSYCHIATRY: Alert, awake, oriented x3. SKIN: Warm and dry. LYMPH NODES: No palpable lymph nodes in the neck. PERIPHERAL VASCULAR: Radial pulses palpable bilaterally. MUSCULOSKELETAL: No joint swelling or tenderness. LABORATORY FINDINGS: CBC showed WBC of 5.0 with hemoglobin 13, hematocrit 40.3, platelet 243. Chemi stries showed sodium 139, potassium 4.2, chloride 105, bicarb 25, BUN 10, creatinine 0.79, and glucos e of 87. Troponins was negative at [facility] at 8:00 a.m., repeat troponins are pending. EKG and chest x-ray b y my review as discussed above. IMPRESSION: 1. Chest discomfort. The patient has coronary artery disease with RCA stent in the past. She christopher nues to have chest discomfort at this time. We will give her additional dose of fentanyl. We will c onsult Cardiology. We will keep her n.p.o. She had a caffeinated drinks around 5:00 a.m. We will c ontinue aspirin. Please note that she had to discontinue aspirin for 5 days for recent endoscopic ul trasound. We will resume other home medications based on recent discharge summary. 2. Anxiety, depression, and posttraumatic stress disorder. We will resume her home medications once confirmed. 3. Chronic pancreatitis with recent endoscopic ultrasound. 4. Coronary artery disease, status post RCA stent in 2012. She had a repeat catheterization in 2014 . 5. Hyperlipidemia. Patient is currently on Zocor at home based on last discharge summary. 6. Multiple medication allergies. 7. Chronic kidney disease stage 2. 8. Chronic obstructive pulmonary disease per previous history and physical. 9. Former smoker. Plan of care was discussed with the patient in detail. She stated understanding. Diet, n.p.o.
[2017-06-02] MEDS ORDERED: Aspirin 325 MG TAB PO SCH (14:15)
[2017-06-02] MEDS ORDERED: Fentanyl 100 MCG/2 ML VIAL SLOW IVP PRN (14:19)
[2017-06-02] MEDS ORDERED: Nitroglycerin 0.4 MG TAB (25 Tab Bottle) PO PRN (14:19)
[2017-06-02] MEDS ORDERED: Sodium Chloride 0.9% 1,000 ML IV SCH (14:19)
[2017-06-02] MEDS ORDERED: hydrALAZINE 20 MG/ML VIAL SLOW IVP PRN (14:19)
[2017-06-02] MEDS ORDERED: Calcium Carbonate 500 MG ChewTAB PO PRN (14:19)
[2017-06-02] MEDS ORDERED: Labetalol HCl 100 MG/20 ML VIAL SLOW IVP PRN (14:19)
[2017-06-02] MEDS ORDERED: Bisacodyl 10 MG SUPP PR PRN (14:19)
[2017-06-02] MEDS ORDERED: traMADol HCl 50 MG TAB PO PRN (14:19)
[2017-06-02] MEDS ORDERED: Senokot 8.6 MG TAB PO PRN (14:19)
[2017-06-02] MEDS ORDERED: Mag-Al 1200 mg/1200 mg/30 ML UDCUP PO PRN (14:19)
[2017-06-02 14:26] VITALS: BMI 21.5
[2017-06-02] MEDS: Promethazine 25 MG TAB PO PRN (15:18)
[2017-06-02 16:14] LABS: Troponin I Less than 0.010 ng/mL (< 0.028)
[2017-06-02] MEDS: Pancrelipase DR 12000 1 CAP PO SCH (17:53)
--- NOTE | 2017-06-02 21:18 | CON ---
DATE OF CONSULTATION: 06/02/2017 HISTORY OF PRESENT ILLNESS: The patient is a 46-year-old woman who presents for evaluation of recurrent chest discomfort. In 2012, when she has suffered a non-Q-wave myocardial infarction.The patient subsequently underwent a cardiac catheterization and was found to have severe disease in the right coronary artery. The patient subsequently underwent PTCA and stent placement into this vessel. She underwent a stress test in 07/2013 which revealed normal left ventricular ejection fraction with no evidence of ischemia. In 07/2014, she presented and underwent a repeat cardiac catheterization, and was found mild luminal irregularities with patent stents in the right coronary artery. The patient represented with chest pain in 06/2016. The patient had serial cardiac enzymes obtained during which there was no evidence of myocardial infarction. The patient was supposed to undergo further outpatient evaluation. She had been doing well for the past year until she developed recurrent chest discomfort. She describes this as a midsternal discomfort that radiates to her back. She took two nitroglycerin tablets and went to the emergency room. The patient received another nitroglycerin with eventual relief of her pain. PAST MEDICAL HISTORY: 1. Coronary artery disease. 2. Hypertension. 3. Dyslipidemia. 4. History of anxiety. 5. Chronic pancreatitis. PAST SURGICAL HISTORY: Hysterectomy and appendectomy. SOCIAL HISTORY: Former smoker, former use of excessive alcohol. ALLERGIES: RANEXA, ERYTHROMYCIN, CODEINE, IODINE. MEDICATIONS ON ADMISSION: Zocor 20 at bedtime, Zantac 150 daily, aspirin 81 daily, Celexa 40 daily, alprazolam 1 mg tablet daily,and Zantac 150 at bedtime. REVIEW OF SYSTEMS: Ten-point system was otherwise unremarkable. PHYSICAL EXAMINATION: GENERAL: This is an anxious woman with a blood pressure 108/73. NECK: No jugular venous distention, no carotid bruits. LUNGS: Clear to auscultation. HEART: Regular rate and rhythm, normal S1, S2. ABDOMEN: Nondistended. EXTREMITIES: No edema. SKIN: Warm and dry. NEUROLOGIC: Nonfocal. VASCULAR: Radial pulses 2+. LABORATORY DATA: Sodium 139, potassium 4.2, chloride 105, bicarbonate 25, BUN 10, creatinine is 0.79. Troponin was 0.01. White blood cell count is 5.0, hemoglobin 13.1, hematocrit is 40.3, platelets 243. D-dimer was less than 0.27. Her EKG revealed sinus bradycardia with a nonspecific T-wave abnormality. IMPRESSION: 1. Chest pain. 2. History of coronary artery disease. 3. History of myocardial infarction. 4. Dyslipidemia. 5. History of pancreatitis. 6. Anxiety. PLAN: This patient presents for recurrent chest pain. Serial cardiac enzymes reveal no evidence of myocardial infarction.The patient was scheduled to undergo a repeat stress to see if there is evidence of ischemia. We will follow this patient with you throughout her hospitalization. EDGAR
[2017-06-03] MEDS: Acetaminophen 325 MG TAB PO PRN ×2 (03:19→12:58)
--- NOTE | 2017-06-03 08:26 | PDOC.CTH ---
<Yulia Jacobsen - Last Filed: 06/03/17 08:22> Cardiology Progress Note - Subjective the pt seen and examined. No overnight events. Still complains of pressure like discomfort in midsternal area which radiate to her shoulder. She will have stress test today. - Objective Vital Signs Temp Pulse Resp BP Pulse Ox 06/03/17 08:13 98.2 F 55 L 16 97/54 L 95 06/03/17 07:50 97.8 F 54 L 16 06/03/17 06:12 95 06/03/17 03:21 97.8 F 54 L 16 108/60 96 06/03/17 00:02 97.4 F L 49 L 16 97/56 L 94 L Weight 129 lb 8 oz 06/02/17 06/03/17 06/04/17 06:59 06:59 06:59 Intake Total 1350 Balance 1350 - Physical Examination General/Neuro: alert & oriented x3 Neck: no JVD present Lungs: CTA Heart: RRR Extremities: other: (No edemas) - Telemetry Telemetry Rhythm: SR 70s - Labs Troponin/CKMB CK-MB (CK-2) 0.8 ng/mL (0-6.6) 06/02/17 12:20 Troponin I Less than 0.010 ng/mL (< 0.028) 06/02/17 15:33 - Assessment/Plan 1. CP - The pt cont. having heaviness like discomfort in her midsternal area to shoulder; The pt will have stress test today 2. CAD with hx of stent x1 in RCA in 2012 and s/p cath in 2014 with mild CAD - cont. monitor on tele 3. Chronic Pancreatitis - on Creon; managed by PCP 4. HTN - stable with current medication; on ASA, but not on BBlocker due to Bradycardia 5. hyperlipdemia - on Statin med 6. COPD - stable with RA 7. Anxiety - stable with current medication; managed by PCP 8. Ex-smoker - Smoking cessation education given to the pt Review of Systems - Review of Systems Constitutional: reports: no symptoms reported EENTM: reports: no symptoms reported Respiratory: reports: no symptoms reported Cardiac (ROS): reports: see HPI ABD/GI: reports: no symptoms reported : reports: no symptoms reported Musculoskeletal: reports: no symptoms reported Skin: reports: no symptoms reported <Rupal Anthony - Last Filed: 06/03/17 17:47> Cardiology Progress Note - Objective Vital Signs Temp Pulse Resp BP Pulse Ox 06/03/17 12:58 98.0 F 56 L 16 116/60 97 06/03/17 08:13 98.2 F 55 L 16 97/54 L 95 06/03/17 07:50 97.8 F 54 L 16 06/03/17 06:12 95 Weight 129 lb 8 oz 06/02/17 06/03/17 06/04/17 06:59 06:59 06:59 Intake Total 1350 300 Balance 1350 300 - Labs Troponin/CKMB CK-MB (CK-2) 0.8 ng/mL (0-6.6) 06/02/17 12:20 Troponin I Less than 0.010 ng/mL (< 0.028) 06/02/17 15:33 - Assessment/Plan Pt. seen and eval. by me. The stress test is unremarkable. I agree with the A/P by the [employer]..She will be d/c'd to home and f/u with me in the next 1-2 months.
[2017-06-03] MEDS: ALPRAZolam 0.25 MG TAB PO PRN ×2 (08:58→12:54)
[2017-06-03] MEDS ORDERED: ALPRAZOLAM 1 MG PO SCH ×2 (09:00)
[2017-06-03] MEDS ORDERED: Atorvastatin Calcium 10 MG TAB PO SCH (09:00)
[2017-06-03] MEDS ORDERED: Aspirin 325 MG TAB PO SCH (09:00)
[2017-06-03] MEDS ORDERED: Multivit, Chewable SF 1 TAB PO SCH (09:00)
[2017-06-03] MEDS ORDERED: Citalopram 20 MG TAB PO SCH (09:00)
[2017-06-03] MEDS: Pancrelipase DR 12000 1 CAP PO SCH ×2 (12:54)
[2017-06-03 13:00] VITALS: BP 116/60; TEMP 98
[2017-06-03] MEDS ORDERED: Regadenoson 0.4 MG/5 ML SYRINGE ONE (13:01)
[2017-06-03] MEDS: Promethazine 25 MG TAB PO PRN (13:39)
--- NOTE | 2017-06-03 14:07 | NM ---
MYOCARDIAL PERFUSION EVALUATION: DATE: 06/03/17 INDICATION: Chest pain. RADIOPHARMACEUTICAL: 32 mCi technetium-99m sestamibi with stress and 10.2 mCi technetium-99m sestamibi with rest. FINDINGS: No reversible myocardial perfusion defect is evident when comparing the rest and stress images. There is normal wall motion and thickening. The estimated LVEF is 62%. IMPRESSION: Normal myocardial perfusion evaluation. POS: [facility]
--- NOTE | 2017-06-03 16:28 | DIS ---
DATE OF DISCHARGE: 06/03/2017 DISCHARGE DISPOSITION: Home. FOLLOWUP: 1. Follow up with primary care physician, Dr. Livia Valle in 1 week. 2. Follow up with Dr. Robert Anthony as scheduled. The patient was seen and examined on the day of discharge and denies any new complaints. No chest pa in, shortness of breath or palpitations. BRIEF HOSPITAL COURSE: The patient is a 46-year-old female with coronary artery disease, status post RCA stent and hyperlipidemia. She presented to the emergency room at [facility] with chest discomfort . Please refer to the history and physical dated 06/02/2017 for further details. The patient was admitted to the hospital with the diagnosis of chest discomfort, rule out acute coron josé syndrome. Serial cardiac enzymes were normal. Due to continuous chest pain, the patient was tano luated by Dr. Anthony. A stress test was done which was negative for reversible ischemia. The patient has been cleared by Cardiology for discharge. No changes in her medications were made. FINAL DIAGNOSES: 1. Chest discomfort, acute coronary syndrome ruled out. 2. Negative Cardiolite stress test. 3. Anxiety, depression and posttraumatic stress disorder. 4. Chronic pancreatitis with recent endoscopic ultrasound. 5. Coronary artery disease, status post right coronary artery stent in 2012. The patient had a repe at cardiac catheterization in 2014. 6. Hyperlipidemia. 7. Chronic kidney disease, stage 2. 8. Chronic obstructive pulmonary disease. 9. Former smoker. 10. Multiple medication allergies. Plan of care was discussed with the patient in detail. She stated understanding.
--- NOTE | 2017-06-13 14:27 | EKG ---
Test Reason : CP Blood Pressure : / mmHG Vent. Rate : 046 BPM Atrial Rate : 046 BPM P-R Int : 136 ms QRS Dur : 078 ms QT Int : 500 ms P-R-T Axes : 083 040 029 degrees QTc Int : 437 ms Sinus bradycardia Otherwise normal ECG Confirmed by AMARILIS ORTIZ DO ([id number]), video effects editor FILIBERTO SAUCEDO ([id number]) on 06/13/2017 2:27:21 PM Referred By: Confirmed By:AMARILIS ORTIZ DO
--- NOTE | 2017-06-13 14:30 | EKG ---
Test Reason : Blood Pressure : / mmHG Vent. Rate : 049 BPM Atrial Rate : 049 BPM P-R Int : 138 ms QRS Dur : 086 ms QT Int : 494 ms P-R-T Axes : 051 040 040 degrees QTc Int : 446 ms Sinus bradycardia No changes Confirmed by AMARILIS ORTIZ DO ([id number]), subeditor FILIBERTO SAUCEDO ([id number]) on 06/13/2017 2:29:49 PM Referred By: Confirmed By:AMARILIS ORTIZ DO
--- NOTE | 2017-06-20 13:35 | STRESS ---
Acquisition Time: 2017-06-03 11:17:37 Total Exercise Time: 00:01:00 Test Indications: CHEST PAIN Medications: Protocol: LEXISCAN Max HR: 121 BPM 70% of Pred: 172 BPM Max BP: 106/068 mmHG Max Work Load: 1.0 METS RESTING ECG: SINUS BRADYCARDIA AT 51 BPM WITH NON-SPECIFIC T-WAVE ABNORMALITIES SYMPTOMS: NAUSEA APPROPRIATE BLOOD PRESSURE RESPONSE FOR LEXISCAN ECTOPY: NONE ECG RESPONSE: INVERTED T-WAVES INTERPRETATION: POSITIVE ECG/AWAIT NUCLEAR IMAGES FOR DEFINITIVE DIAGNOSIS Confirmed by KIERAN DAVIS MD ([id number]) on 06/20/2017 1:34:25 PM Referred By: Melida VIDAL Confirmed By:KIERAN DAVIS MD
== END 2017-06-03 15:54 | disposition home or self-care (01) ==
LOC: ERS 10:33 → 2SW 12:20
PROVIDERS: ADMIT Internal Medicine; ATTEND Internal Medicine
DX: R07.89 Other chest pain (principal); F32.9 Major depressive disorder, single episode, unspecified; F41.9 Anxiety disorder, unspecified; F43.10 Post-traumatic stress disorder, unspecified; K86.1 Other chronic pancreatitis; I25.10 Atherosclerotic heart disease of native coronary artery without angina pectoris; E78.5 Hyperlipidemia, unspecified; N18.2 Chronic kidney disease, stage 2 (mild); J44.9 Chronic obstructive pulmonary disease, unspecified; Z79.82 Long term (current) use of aspirin; Z79.899 Other long term (current) drug therapy; Z88.8 Allergy status to other drugs, medicaments and biological substances; Z88.1 Allergy status to other antibiotic agents; Z88.5 Allergy status to narcotic agent; Z91.013 Allergy to seafood; Z95.818 Presence of other cardiac implants and grafts; Z90.49 Acquired absence of other specified parts of digestive tract; Z90.710 Acquired absence of both cervix and uterus; Z98.890 Other specified postprocedural states; Z87.891 Personal history of nicotine dependence; Z86.59 Personal history of other mental and behavioral disorders
CPT/HCPCS: 36415; 78452; 85379; 93005; 93017; 94760; 96361; 96374; A4216; A9500; G0378; J2785; J3010

== ENCOUNTER 2017-09-01 06:25 | Emergency (ER) | payer OTHER ==
[2017-09-01] MEDS ORDERED: Ketorolac Tromethamine 60 MG/2 ML VIAL ONE (07:04)
== END 2017-09-01 07:10 | disposition home or self-care (01) ==
LOC: ERS 06:25
DX: M25.511 Pain in right shoulder (principal); I25.2 Old myocardial infarction; E78.5 Hyperlipidemia, unspecified; F32.9 Major depressive disorder, single episode, unspecified; F43.10 Post-traumatic stress disorder, unspecified; J44.9 Chronic obstructive pulmonary disease, unspecified; F41.9 Anxiety disorder, unspecified; Z79.82 Long term (current) use of aspirin; Z79.899 Other long term (current) drug therapy
CPT/HCPCS: 96372; J1885

== ENCOUNTER 2017-09-28 06:46 | Emergency (ER) | payer OTHER ==
[2017-09-28 07:29] LABS: #Eosinphils 0.1 thou/uL (0.0-0.7); #Lymphocytes 1.5 thou/uL (1.20-3.40); #Monocytes 0.4 thou/uL (0.11-0.59); #Neutrophils 2.5 thou/uL (1.40-6.50); %Eosinophils 1.5 % (0.0-10.0); %Lymphocytes 33.6 % (21.0-51.0); %Neutrophils 54.9 % (42.0-75.0); Hemoglobin 13.8 g/dL (12.0-16.0); Mean Corpuscular HGB CONC 33.4 g/dL (32.0-36.0); Mean Corpuscular Volume 95.9 fl (81.0-99.0); Mean Platelet Volume 7.6 fL (7.4-10.4); Platelet Count 247 thou/uL (130-400); RBC Distribution Width 12.4 % (11.5-14.5); White Blood Cell (WBC) Count 4.5 thou/uL (4.8-10.8)
[2017-09-28 07:56] LABS: CKMB 0.9 ng/mL (0-6.6); Troponin I Less than 0.010 ng/mL (< 0.028)
[2017-09-28 08:11] LABS: ALT (SGPT) 15 U/L (8-55); AST (SGOT) 26 U/L (5-34); Albumin 4.7 g/dL (3.5-5.0); Alkaline Phosphatase 72 U/L (40-150); Anion Gap 15 mmol/L (10-20); BUN (Urea Nitrogen) 12 mg/dL (7.0-18.7); Bilirubin, Total 0.6 mg/dL (0.2-1.2); CK (CPK) 70 U/L (29-168); Calc. Creatinine Clearance 0 mL/min (70-130); Calcium 9.6 mg/dL (7.8-10.44); Carbon Dioxide 24 mmol/L (22-29); Chloride 102 mmol/L (98-107); Estimated GFR-MDRD 74; Globulin 3.3 g/dL (2.4-3.5); Glucose 87 mg/dL (70-105); Magnesium 2.8 mg/dL (1.6-2.6); Potassium 4.7 mmol/L (3.5-5.1); Sodium 136 mmol/L (136-145)
[2017-09-28] MEDS ORDERED: Promethazine HCl 25 MG/ML VIAL ONE (08:33)
[2017-09-28 09:03] LABS: Bilirubin Negative (Negative); Blood, Urine Negative (Negative); Clarity CLEAR (Clear); Glucose, Urine (Dipstick) Negative (Negative); Leukocyte Negative (Negative); Nitrite Negative (Negative); Protein, Urine (Dipstick) Negative (Neg-Trace); Specific Gravity, Urine 1.007 (1.002-1.036); Urobilinogen 0.2 mg/dL (0.2-1.0)
[2017-09-28 09:14] LABS: Amphetamine Not Detected (NotDetected); Barbiturates Screen Not Detected (NotDetected); Benzodiazepine Screen Detected (NotDetected); Cocaine Metabolite Screen Not Detected (NotDetected); Medtox Control Line Valid? VALID (VALID); Medtox Reader # READER 1; Methadone Not Detected (NotDetected); Methamphetamine Not Detected (NotDetected); Opiate Screen Not Detected (NotDetected); Oxycodone Screen Not Detected (NotDetected); Phencyclidine (PCP) Not Detected (NotDetected); THC/Cannabinoid Screen Not Detected (NotDetected); Tricyclic Screen Not Detected (NotDetected)
--- NOTE | 2017-11-06 15:38 | EKG ---
Test Reason : PALPITATIONS Blood Pressure : / mmHG Vent. Rate : 057 BPM Atrial Rate : 057 BPM P-R Int : 132 ms QRS Dur : 088 ms QT Int : 420 ms P-R-T Axes : 051 031 032 degrees QTc Int : 408 ms Sinus bradycardia Nonspecific ST and T wave abnormality Abnormal ECG Confirmed by JACKSON LOVE, CASANDRA ([id number]), managing editor FILIBERTO SAUCEDO ([id number]) on 11/06/2017 3:37:49 PM Referred By: APRYL Confirmed By:CASANDRA PAZ MD
--- NOTE | 2017-11-06 15:38 | EKG ---
Test Reason : PALPITATIONS Blood Pressure : / mmHG Vent. Rate : 048 BPM Atrial Rate : 048 BPM P-R Int : 140 ms QRS Dur : 090 ms QT Int : 458 ms P-R-T Axes : 057 060 044 degrees QTc Int : 409 ms Marked sinus bradycardia Abnormal ECG Confirmed by CASANDRA PAZ MD ([id number]), editor magazine FILIBERTO SAUCEDO ([id number]) on 11/06/2017 3:37:50 PM Referred By: JACKSON Confirmed By:CASANDRA PAZ MD
== END 2017-09-28 09:47 | disposition home or self-care (01) ==
LOC: ERS 06:46
DX: R00.2 Palpitations (principal); I25.2 Old myocardial infarction; K86.1 Other chronic pancreatitis; E78.5 Hyperlipidemia, unspecified; J44.9 Chronic obstructive pulmonary disease, unspecified; F41.9 Anxiety disorder, unspecified; F32.9 Major depressive disorder, single episode, unspecified; Z79.82 Long term (current) use of aspirin; Z79.899 Other long term (current) drug therapy
CPT/HCPCS: 80053; 80306; 81003; 82550; 82553; 83735; 84443; 84484; 85025; 93005; 94760; 96374; J2550

== ENCOUNTER 2017-10-15 16:23 | Inpatient (IN) | payer OTHER ==
[2017-10-15 17:11] LABS: #Eosinphils 0.1 thou/uL (0.0-0.7); #Lymphocytes 2.2 thou/uL (1.20-3.40); #Monocytes 0.7 thou/uL (0.11-0.59); #Neutrophils 3.2 thou/uL (1.40-6.50); %Basophils 0.3 % (0.0-1.0); %Eosinophils 1.8 % (0.0-10.0); %Lymphocytes 35.5 % (21.0-51.0); %Monocytes 10.4 % (0.0-10.0); %Neutrophils 51.9 % (42.0-75.0); Hemoglobin 12.5 g/dL (12.0-16.0); Mean Corpuscular HGB CONC 33.2 g/dL (32.0-36.0); Mean Corpuscular Hemoglobin 31.4 pg (27.0-31.0); Mean Corpuscular Volume 94.6 fl (81.0-99.0); Mean Platelet Volume 7.5 fL (7.4-10.4); Platelet Count 226 thou/uL (130-400); RBC Distribution Width 12.6 % (11.5-14.5); Red Blood Cell (RBC) Count 3.98 mill/uL (4.20-5.40); White Blood Cell (WBC) Count 6.2 thou/uL (4.8-10.8)
[2017-10-15] MEDS ORDERED: Promethazine HCl 25 MG/ML VIAL ONE (17:22)
--- NOTE | 2017-10-15 17:23 | RAD ---
ONE VIEW CHEST: 10/15/17 HISTORY: Chest pain, substernal. COMPARISON: 06/02/17. FINDINGS: Normal cardiac silhouette. The lungs and pleural spaces are clear. No pneumothorax or osseous abnorma lities. Bilateral nipple shadows are noted. IMPRESSION: No acute cardiopulmonary process. POS: [facility]
[2017-10-15 17:37] LABS: CKMB 0.8 ng/mL (0-6.6); Troponin I Less than 0.010 ng/mL (< 0.028)
[2017-10-15 17:39] LABS: ALT (SGPT) 15 U/L (8-55); AST (SGOT) 19 U/L (5-34); Albumin 4.3 g/dL (3.5-5.0); Alkaline Phosphatase 62 U/L (40-150); Anion Gap 13 mmol/L (10-20); BUN (Urea Nitrogen) 15 mg/dL (7.0-18.7); Bilirubin, Total 0.3 mg/dL (0.2-1.2); CK (CPK) 74 U/L (29-168); Calc. Creatinine Clearance 0 mL/min (70-130); Calcium 9.1 mg/dL (7.8-10.44); Carbon Dioxide 24 mmol/L (22-29); Chloride 106 mmol/L (98-107); Estimated GFR-MDRD 80; Globulin 2.6 g/dL (2.4-3.5); Glucose 102 mg/dL (70-105); Potassium 3.9 mmol/L (3.5-5.1); Protein, Total 6.9 g/dL (6.0-8.3); Sodium 139 mmol/L (136-145)
[2017-10-15] MEDS ORDERED: Ketorolac Tromethamine 30 MG/ML VIAL ONE (19:09)
[2017-10-15 20:39] LABS: Troponin I Less than 0.010 ng/mL (< 0.028)
[2017-10-15] MEDS ORDERED: Ondansetron ODT 4 MG TAB SL PRN (21:13)
[2017-10-15] MEDS ORDERED: Ondansetron PF 4 MG/2 ML Vial IVP PRN ×2 (21:13→23:05)
[2017-10-15] MEDS ORDERED: HYDROcodone/Acetaminophen 5/325 mg Tablet PO PRN ×2 (21:13)
[2017-10-15] MEDS ORDERED: Acetaminophen 325 MG TAB PO PRN (21:13)
[2017-10-15 21:31] VITALS: BMI 20.2
[2017-10-15] MEDS ORDERED: Ondansetron ODT 4 MG TAB PO PRN (23:05)
[2017-10-15] MEDS ORDERED: ALPRAZolam 1 MG TAB PO PRN (23:05)
[2017-10-15] MEDS ORDERED: cloNIDine 0.1 MG TAB PO PRN (23:05)
[2017-10-15] MEDS ORDERED: hydrALAZINE 20 MG/ML VIAL SLOW IVP PRN (23:05)
[2017-10-15] MEDS ORDERED: Nitroglycerin 0.4 MG TAB (25 Tab Bottle) SL PRN (23:05)
[2017-10-15] MEDS ORDERED: Acetaminophen 500 MG TAB PO PRN (23:05)
[2017-10-15 23:17] LABS: Troponin I Less than 0.010 ng/mL (< 0.028)
[2017-10-16] MEDS ORDERED: Sodium Chloride 0.9% 1,000 ML IV SCH (00:15)
[2017-10-16] MEDS: Sodium Chloride 0.9% 1,000 ML IV SCH ×3 (02:31→19:23)
[2017-10-16] MEDS: traMADol HCl 50 MG TAB PO PRN ×3 (02:40→16:06)
[2017-10-16] MEDS: Promethazine 25 MG TAB PO PRN ×5 (03:11→20:34)
--- NOTE | 2017-10-16 03:33 | HP ---
DATE OF ADMISSION: 10/15/2017 PRIMARY CARE PHYSICIAN: Livia Valle M.D. CHIEF COMPLAINT: Chest pain. HISTORY OF PRESENT ILLNESS: This is a 46-year-old, female, who presents to [facility] Emergency Department complaining of substernal chest pain with radiation to the ba ck and shoulder areas that occurred around 1500 hours on 10/15/2017. The patient states she was driv ing back home from work when the symptoms began. The patient states she pulled over to the side of [address] due to the pressure and apparently took her regular prescription of tramadol, Xanax, and nitr oglycerin x2 without specific relief of her symptoms. The patient admits to history of coronary alexis ry disease, status post cardiac stent placement x1 into the right coronary artery in 2012. The patie nt underwent subsequent left heart catheterization in 2014 showing patent stents and minimal coronary artery disease. The patient also underwent cardiac stress testing in 05/2017 with negative results and ejection fraction of 62%. The patient admits to increased loose stools 4-5 days prior to this ev aluation and felt that she was having a flare of her chronic pancreatitis. The patient states she us ually modifies her oral intake and takes pain medication, antiemetics with general resolution of her symptoms. The patient consistently denies any current alcohol intake and states her cholesterol is g enerally well controlled. In the emergency room, the patient underwent general evaluation including metabolic assessment showing negative results as well as troponin I negative x2. Portable chest x-ra y imaging was negative and EKG showed no acute ST-T wave changes. The patient received Toradol 15 mg x1 dose and Phenergan 25 mg IV push. The patient was referred to Hospitalist Service for evaluation . PAST MEDICAL HISTORY: 1. Coronary artery disease, status post PCI with cardiac stent placement to the right coronary arter y in 2012. 2. Anxiety/depression. 3. Posttraumatic stress disorder. 4. Chronic pancreatitis. 5. Hyperlipidemia. 6. Remote tobacco use. 7. Chronic obstructive pulmonary disease. PAST SURGICAL HISTORY: 1. Status post endoscopic ultrasound secondary to chronic pancreatitis. 2. Status post right coronary artery stent placement in 2012. 3. Status post cardiac catheterization in 2014 showing minimal coronary artery disease. 4. Status post appendectomy 5. Status post hysterectomy. CURRENT MEDICATIONS: 1. Tylenol 1000 mg p.o. q.6 hours p.r.n. 2. Xanax 1 mg p.o. daily and 1.5 mg p.o. q.24 hours p.r.n. anxiety. 3. Aspirin enteric coated 81 mg 1 tab p.o. daily. 4. Citalopram 40 mg p.o. daily. 5. Creon DR 1 capsule p.o. t.i.d. 6. Nitroglycerin 0.4 mg sublingually q.5 minutes p.r.n. chest pain. 7. Phenergan 25 mg p.o. q.4-6 hours p.r.n. 8. Zocor 20 mg p.o. q.a.m. 9. Tramadol 50 mg p.o. q.6 hours p.r.n. 10. Zantac 150 mg p.o. daily. ALLERGIES: To RANOLAZINE, AZITHROMYCIN, CODEINE, MORPHINE SULFATE, CORTISONE, SHRIMP, NORCO, and IOD INE. FAMILY HISTORY: Positive for mother and grandfather with coronary artery disease. 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 Smoked for approxi mately 30 years, quitting 4 years prior to this evaluation. Remote history of alcohol abuse, none cu rrently. No illicit drug use. REVIEW OF SYSTEMS: The following complete review of systems was negative, unless otherwise mentioned in the HPI or below: Constitutional: Weight loss or gain, ability to conduct usual activities. Sk in: Rash, itching. Eyes: Double vision, pain. ENT/Mouth: Nose bleeding, neck stiffness, pain, te nderness. Cardiovascular: Palpitations, dyspnea on exertion, orthopnea. Respiratory: Shortness of breath, wheezing, cough, hemoptysis, fever or night sweats. Gastrointestinal: Poor appetite, abdom inal pain, heartburn, nausea, vomiting, constipation, or diarrhea. Genitourinary: Urgency, frequenc y, dysuria, nocturia. Musculoskeletal: Pain, swelling. Neurologic/Psychiatric: Anxiety, depressio n. Allergy/Immunologic: Skin rash, bleeding tendency. Otherwise negative except as stated per HPI. PHYSICAL EXAMINATION: VITAL SIGNS: On admission, blood pressure 114/68, pulse 69, respiratory rate 14, temperature 98.1 de grees Fahrenheit, O2 saturation 96% on room air. GENERAL APPEARANCE: This is a 46-year-old, female, alert and oriented x3, groggy, answers questions briefly, in no acute distress. HEENT: Pupils are equal, round, and reactive to light and accommodation. Extraocular muscles are in tact. No scleral icterus. No conjunctival injection. Nares patent. OP is clear. Teeth in good re pair. NECK: Supple. No cervical adenopathy, no thyromegaly, no carotid bruits, no JVD appreciated. Cervi jenni spine full active and passive range of motion. No meningeal signs appreciated. CHEST: Lungs are clear to auscultation bilaterally. CARDIOVASCULAR: S1, S2, without noted murmur, rub or gallop. ABDOMEN: Rounded, soft, nontender, and nondistended. Bowel sounds are positive in all four quadrant s. There is no hepatosplenomegaly, no abdominal bruits, no rebound or guarding appreciated. EXTREMITIES: Warm and dry with fair turgor. No clubbing, cyanosis or asymmetric edema appreciated. Pulses palpable distally at the dorsalis pedis, posterior tibial, and popliteal arteries bilaterally . Capillary refill less than 2 seconds. NEUROLOGIC: Cranial nerves II-XII are grossly intact. No focal or lateralizing signs appreciated. PERTINENT LABORATORY AND X-RAY FINDINGS: Complete metabolic profile within normal limits. Troponin I negative x2. CBC within normal limits. Portable chest x-ray dated 10/15/2017 showed no acute card iopulmonary process. EKG dated 10/15/2017 by my interpretation shows sinus mechanism with heart rate s in the 70s. Normal R-wave progression noted in the precordial leads. Normal axis. No acute ST-T wave changes appreciated. ASSESSMENT AND PLAN: 1. Chest pain. The patient will be observed on the telemetry unit. No current evidence to suggest acute coronary syndrome. Continue serial troponin I rule out. If patient does not rule out enzymati antony, may proceed with Cardiolite stress testing. The patient with recent Cardiolite stress testing 05/2017 showing negative findings. Continue aspirin 325 mg daily. 2. Chronic pancreatitis. Question of an acute exacerbation. Check lipase level. 3. Anxiety disorder. Resume home Xanax 1 mg p.o. daily. 4. Depression. Continue citalopram 40 mg p.o. daily. 5. Prophylaxis. Sequential compression devices while in bed. Pepcid 20 mg p.o. b.i.d. 6. Code status is FULL. Surrogate medical decision maker is patient's spouse.
[2017-10-16 05:03] LABS: Cardiac Risk 2.6 (Less than 4.5)
[2017-10-16] MEDS: Famotidine 20 MG TAB PO SCH ×2 (08:23→19:24)
[2017-10-16] MEDS: Pancrelipase DR 12000 1 CAP PO SCH ×3 (08:23→16:01)
[2017-10-16] MEDS: Citalopram 20 MG TAB PO SCH (08:23)
[2017-10-16] MEDS: Aspirin 325 MG TAB PO SCH (08:23)
[2017-10-16] MEDS: Atorvastatin Calcium 10 MG TAB PO SCH (08:23)
[2017-10-16 10:12] LABS: #Basophils 0.1 thou/uL (0.0-0.2); #Eosinphils 0.1 thou/uL (0.0-0.7); #Lymphocytes 1.5 thou/uL (1.20-3.40); #Monocytes 0.4 thou/uL (0.11-0.59); #Neutrophils 2.1 thou/uL (1.40-6.50); %Basophils 1.7 % (0.0-1.0); %Lymphocytes 36.2 % (21.0-51.0); %Monocytes 8.5 % (0.0-10.0); %Neutrophils 50.6 % (42.0-75.0); Mean Corpuscular HGB CONC 32.4 g/dL (32.0-36.0); Mean Corpuscular Hemoglobin 31.4 pg (27.0-31.0); Mean Corpuscular Volume 96.9 fl (81.0-99.0); Mean Platelet Volume 7.5 fL (7.4-10.4); Platelet Count 213 thou/uL (130-400); RBC Distribution Width 12.7 % (11.5-14.5); Red Blood Cell (RBC) Count 3.83 mill/uL (4.20-5.40); White Blood Cell (WBC) Count 4.2 thou/uL (4.8-10.8)
[2017-10-16 10:30] LABS: ALT (SGPT) 12 U/L (8-55); AST (SGOT) 14 U/L (5-34); Albumin 3.8 g/dL (3.5-5.0); Alkaline Phosphatase 54 U/L (40-150); Anion Gap 9 mmol/L (10-20); BUN (Urea Nitrogen) 10 mg/dL (7.0-18.7); Bilirubin, Total 0.5 mg/dL (0.2-1.2); Calc. Creatinine Clearance 91 mL/min (70-130); Calcium 8.7 mg/dL (7.8-10.44); Carbon Dioxide 26 mmol/L (22-29); Chloride 110 mmol/L (98-107); Estimated GFR-MDRD Greater than 90; Globulin 2.1 g/dL (2.4-3.5); Glucose 71 mg/dL (70-105); Lipase 101 U/L (8-78); Potassium 4.1 mmol/L (3.5-5.1); Protein, Total 5.9 g/dL (6.0-8.3); Sodium 141 mmol/L (136-145)
[2017-10-16] MEDS: Ketorolac Tromethamine 30 MG/ML VIAL IVP PRN ×2 (11:15→20:34)
--- NOTE | 2017-10-17 00:56 | CON ---
DATE OF CONSULTATION: 10/16/2017 REASON FOR CONSULTATION: Chronic pancreatitis. CONSULTING PHYSICIAN: Marc Meyers M.D. HISTORY OF PRESENT ILLNESS: The patient is a 46-year-old female with past medical history of coronary artery disease status post stent placement in 2012, anxiety, depression, PTSD, hyperlipidemia, COPD, and chronic pancreatitis presenting with complaints of increased abdominal pain. She was evaluated as an outpatient going into the end of last year and had been placed on pancreatic enzyme supplementation for chronic pancreatitis related to a bout of acute pancreatitis, primarily in part due to increased alcohol consumption. With the addition of pancreatic enzyme supplementation, she had had complete resolution of her symptoms. However, approximately 4-5 days ago she had increase in mid epigastric and chest pain radiating to her back that progressively worsened over that same time. The pain was characterized as sharp, stabbing in nature, radiating to her back, intermittent with the severity of 5/10 initially; however , the severity of the pain increased over the next few days to reach a 9/10, which then prompted her to seek healthcare assistance. With the appearance of this abdominal pain, she also experienced increased nausea and vomiting of nonbloody emesis that occurred prior to the increase in her abdominal pain, but continues through the last 4-5 days. When speaking with the patient, she states that her current abdominal pain is consistent with her prior bouts of pancreatitis in the past in terms of its location and severity. REVIEW OF SYSTEMS: A 10-category review of systems was obtained with all responses negative except for the pertinent positives as listed in the HPI. PAST MEDICAL HISTORY: Per HPI. PAST SURGICAL HISTORY: Endoscopic ultrasound for evaluation of chronic pancreatitis. Right coronary artery stent placement in 2012. Cardiac catheterization, appendectomy and hysterectomy. FAMILY HISTORY: Denies any GI malignancies. SOCIAL HISTORY: Denies any tobacco, alcohol or illicit drug use, but does endorse a history of heavier alcohol intake in the past. OUTPATIENT MEDICATIONS: Reviewed. ALLERGIES: RANOLAZINE, AZITHROMYCIN, CODEINE, MORPHINE SULFATE, CORTISONE, SHRIMP, NORCO, and IODINE. PHYSICAL EXAMINATION: VITAL SIGNS: Temperature 98, pulse 54, blood pressure 102/55, respiratory rate 18, satting 92% on room air. GENERAL: The patient is lying in bed in mild distress. Alert and oriented x4. NECK: Supple. No JVD noted. CARDIOVASCULAR: Regular rate and rhythm with no discernible murmurs, gallops or rubs. RESPIRATORY: Clear to auscultation bilaterally with no discernible wheezes or rales. ABDOMEN: Normoactive bowel sounds, soft, nondistended. Tenderness to palpation in the right upper quadrant, midepigastric, left upper quadrant, periumbilical, and suprapubic regions. EXTREMITIES: No cyanosis, clubbing, or edema. LABORATORY DATA: CBC with a white blood cell count of 4.2, hemoglobin 12, hematocrit 37.1, platelets 213. Chemistry with a sodium of 141, potassium of 4.1, chloride of 110, CO2 of 26, BUN 10, creatinine 0.68, glucose 71, AST 14, ALT 12, alkaline phosphatase 54, total bilirubin 0.5, lipase 120. IMAGING DATA: No current GI imaging is available for review. ASSESSMENT AND PLAN: The patient is a 46-year-old female with past medical history of coronary artery disease status post stent placement, anxiety, depression, posttraumatic stress disorder, hyperlipidemia, chronic obstructive pulmonary disease, and chronic pancreatitis, presenting with midepigastric abdominal pain. Midepigastric abdominal pain. The patient is presenting with a 4-5 day history of worsening abdominal pain located in the midepigastric region which would then radiate to her back and shoulder. This is associated with increased nausea and vomiting with nonbloody emesis. When compared to prior episodes of her acute on chronic pancreatitis flares, per patient, this is consistent with those prior flares. Currently with a lipase of 120, which technically does not meet criteria for acute pancreatitis, but given the clinical constellation of symptoms consistent with her prior flares, I would definitely consider this a chronic pancreatitis type picture. RECOMMENDATIONS: 1. Would continue IV fluid administration for the time being given her relatively inability to tolerate oral food intake. 2. Would attempt to advance diet as tolerated with low fat diet. 3. Pain control per primary team. 4. Would continue pancreatic enzyme supplementation with approximately 36,000 lipase units per meal and with snacks. 5. If her pain worsens or she develops fever, I would strongly consider CT abdomen and pelvis for evaluation of the pancreas with pancreatic protocol. 6. There is no need to trend lipase as it does not portend severity of disease nor prognosis. Would treat clinically. We will continue to follow. Please call with any additional questions. EDGAR
[2017-10-17] MEDS: traMADol HCl 50 MG TAB PO PRN ×3 (02:56→19:40)
[2017-10-17] MEDS: Promethazine 25 MG TAB PO PRN ×5 (02:56→23:11)
[2017-10-17] MEDS: Sodium Chloride 0.9% 1,000 ML IV SCH ×3 (02:56→19:40)
[2017-10-17] MEDS: Ketorolac Tromethamine 30 MG/ML VIAL IVP PRN ×4 (04:29→23:10)
[2017-10-17 05:11] LABS: #Eosinphils 0.2 thou/uL (0.0-0.7); #Lymphocytes 1.9 thou/uL (1.20-3.40); #Monocytes 0.4 thou/uL (0.11-0.59); #Neutrophils 2.2 thou/uL (1.40-6.50); %Basophils 0.6 % (0.0-1.0); %Eosinophils 3.3 % (0.0-10.0); %Lymphocytes 39.9 % (21.0-51.0); %Monocytes 9.3 % (0.0-10.0); Hemoglobin 11.5 g/dL (12.0-16.0); Mean Corpuscular HGB CONC 32.5 g/dL (32.0-36.0); Mean Corpuscular Hemoglobin 31.6 pg (27.0-31.0); Mean Corpuscular Volume 97.2 fl (81.0-99.0); Mean Platelet Volume 8.1 fL (7.4-10.4); Platelet Count 196 thou/uL (130-400); RBC Distribution Width 12.8 % (11.5-14.5); Red Blood Cell (RBC) Count 3.62 mill/uL (4.20-5.40); White Blood Cell (WBC) Count 4.8 thou/uL (4.8-10.8)
[2017-10-17 05:39] LABS: ALT (SGPT) 12 U/L (8-55); AST (SGOT) 13 U/L (5-34); Albumin 3.6 g/dL (3.5-5.0); Alkaline Phosphatase 53 U/L (40-150); Anion Gap 10 mmol/L (10-20); BUN (Urea Nitrogen) 11 mg/dL (7.0-18.7); Bilirubin, Total 0.2 mg/dL (0.2-1.2); Calc. Creatinine Clearance 96 mL/min (70-130); Calcium 8.6 mg/dL (7.8-10.44); Carbon Dioxide 25 mmol/L (22-29); Chloride 110 mmol/L (98-107); Estimated GFR-MDRD Greater than 90; Globulin 1.8 g/dL (2.4-3.5); Glucose 82 mg/dL (70-105); Lipase 102 U/L (8-78); Potassium 4.1 mmol/L (3.5-5.1); Protein, Total 5.4 g/dL (6.0-8.3); Sodium 141 mmol/L (136-145)
[2017-10-17] MEDS: Famotidine 20 MG TAB PO SCH ×2 (07:40→19:40)
[2017-10-17] MEDS: Aspirin 325 MG TAB PO SCH (07:40)
[2017-10-17] MEDS: Pancrelipase DR 12000 1 CAP PO SCH ×3 (07:40→17:04)
[2017-10-17] MEDS: Atorvastatin Calcium 10 MG TAB PO SCH (07:41)
[2017-10-17] MEDS: Citalopram 20 MG TAB PO SCH (07:41)
[2017-10-17] MEDS ORDERED: HYDROmorphone 2 MG TAB PO SCH (13:45)
--- NOTE | 2017-10-17 14:46 | PRG ---
DATE OF SERVICE: 10/17/2017 REASON FOR CONSULTATION: Chronic pancreatitis. SUBJECTIVE: The patient states that she continues to have the midepigastric abdominal pain that radiates to her back despite administration of both Toradol and tramadol. She, however, has been able to tolerate some diet and was able to eat salad and grapes this morning with no significant change in her abdominal pain. She does also continue to have some mild nausea, but no emesis over the last 12-24 hours. Currently, denies any vomiting, fevers, chills, odynophagia, dysphagia, or GI bleeding. OBJECTIVE: VITAL SIGNS: Temperature 97.9, pulse 64, blood pressure 114/59, respiratory rate 18, satting 96% on room air. GENERAL: The patient is lying in bed in no acute distress. Alert and oriented x4. CARDIOVASCULAR: Regular rate and rhythm. RESPIRATORY: Clear to auscultation bilaterally. ABDOMEN: Normoactive bowel sounds, soft, and nondistended. Tenderness to palpation in the mid epigastric, periumbilical and right upper quadrants. EXTREMITIES: No cyanosis, clubbing or edema. LABORATORY DATA: CBC with white blood cell count of 4.8, hemoglobin 11.5, hematocrit 35.2, and platelets 196. Chemistry with sodium of 141, potassium 4.1 , chloride 110, CO2 25, BUN 11, creatinine 0.68, and glucose 82. IMAGING DATA: No current GI imaging is available for review. ASSESSMENT AND PLAN: The patient is a 46-year-old female with past medical history of coronary artery disease status post stent placement, anxiety, depression, posttraumatic stress disorder, hyperlipidemia, COPD, and chronic pancreatitis presenting with acute on chronic pancreatitis pain. Acute on chronic pancreatitis: The patient initially presented with a 4-5 day history of worsening abdominal pain located in the midepigastric region with radiation to her back and shoulder consistent with her prior bouts of pancreatitis in the past. She did have a mildly elevated lipase on admission, but does not technically meet criteria for acute pancreatitis. Currently, tolerating a solid diet without significant change in her abdominal pain, which is an improvement compared to admission; however, she does still continue to have significant abdominal pain which is generating her nausea. RECOMMENDATIONS: 1. Would continue IV fluid administration for the time being given her relative inability to tolerate increased fluid intake; however, we would have a lower threshold for discontinuing of IV fluids once her appetite and intake improves. 2. Advance the diet as tolerated. 3. In terms of pain control, would consider addition of oral Dilaudid to her regimen for more adequate pain control, but would not discharge the patient on this particular medication, instead can be potentially discharged on tramadol and/or Toradol. 4. Would continue pancreatic enzyme supplementation with 36,000 lipase units per meal and with snacks. If her pain worsens or she develops fever, I would then consider CT of the abdomen and pelvis for possible pancreatic fluid collection and/or infection. We will continue to follow. Please call with any additional questions. ZOËD
[2017-10-17] MEDS: ALPRAZOLAM 1 MG PO SCH ×2 (16:00→17:25)
--- NOTE | 2017-10-17 16:53 | PDOC.PN ---
- Subjective Encounter Start Date: 10/16/17 Encounter Start Time: 09:00 -: old records requested/rev Pt seen and examined, chart reviewed in its entirety, this si my first visit with this patient. Admitted last night for 'chest pain', r/O'd overnight. on interview, pt complains of abdominal pain, similar to, but worse desiree, previous chronic pancreatitis flares. lipase 120 on admit. gary po, [place] and vomiting resolved. no f/C. Pt sees Dr Aguilar for her chronic pacnreatitis, will ask GI to comments on patients questions regarding increasing her Creon. 10 point ROS performed and neg for all systems except as per HPI - Objective Resuscitation Status: Resuscitation Status FULL:Full Resuscitation MAR Reviewed: Yes Vital Signs & Weight: Vital Signs (12 hours) Temp Pulse Resp BP Pulse Ox 10/17/17 15:26 98.3 F 72 22 H 130/77 94 L 10/17/17 11:21 97.9 F 64 18 114/59 L 96 10/17/17 07:50 97.4 F L 43 L 16 10/17/17 07:15 98.0 F 51 L 18 124/66 95 Weight Weight 132 lb 4.8 oz I&O: 10/16/17 10/17/17 10/18/17 06:59 06:59 06:59 Intake Total 2212 3357 2300 Output Total 1550 3650 825 Balance 662 -293 1475 Result Diagrams: 10/17/17 04:17 10/17/17 04:17 Radiology Reviewed by me: Yes EKG Reviewed by me: Yes Phys Exam - Physical Examination Constitutional: NAD HEENT: PERRLA, moist MMs, sclera anicteric, oral pharynx no lesions Neck: no nodes, no JVD, supple, full ROM Respiratory: no wheezing, no rales, no rhonchi, clear to auscultation bilateral Cardiovascular: RRR, no significant murmur, no rub Gastrointestinal: soft, non-tender, no distention, positive bowel sounds Musculoskeletal: no edema, pulses present Neurological: non-focal, normal sensation, moves all 4 limbs Lymphatic: no nodes Psychiatric: normal affect, A&O x 3 Skin: no rash, normal turgor, cap refill <2 seconds Dx/Plan (1) Acute on chronic pancreatitis Code(s): K85.90 - ACUTE PANCREATITIS WITHOUT NECROSIS OR INFECTION, UNSP; K86.1 - OTHER CHRONIC PANCREATITIS Status: Acute Comment: diet, IV fluids, pain controll. increase tramadol to home dose, toradol for breakthrough. avoid narcotics (2) CAD (coronary artery disease) Code(s): I25.10 - ATHSCL HEART DISEASE OF [place] CORONARY ARTERY W/O ANG PCTRS Status: Chronic Qualifiers: Coronary Disease-Associated Artery/Lesion type: [place] artery [place] vs. transplanted heart: [place] heart Associated angina: without angina Qualified Code(s): I25.10 - Atherosclerotic heart disease of [place] coronary artery without angina pectoris (3) COPD (chronic obstructive pulmonary disease) Status: Chronic Qualifiers: COPD type: emphysema Emphysema type: unspecified Qualified Code(s): J43.9 - Emphysema, unspecified (4) Chest pain Code(s): R07.9 - CHEST PAIN, UNSPECIFIED Status: Ruled-out Qualifiers: Chest pain type: chest pain on breathing Qualified Code(s): R07.1 - Chest pain on breathing Comment: not chest pain, just abdominal pain (5) Anxiety Code(s): F41.9 - ANXIETY DISORDER, UNSPECIFIED Status: Chronic (6) Chronic pancreatitis Code(s): K86.1 - OTHER CHRONIC PANCREATITIS Status: Chronic Qualifiers: Pancreatitis type: alcohol induced Qualified Code(s): K86.0 - Alcohol- induced chronic pancreatitis (7) Hyperlipidemia Code(s): E78.5 - HYPERLIPIDEMIA, UNSPECIFIED Status: Chronic Qualifiers: Hyperlipidemia type: unspecified Qualified Code(s): E78.5 - Hyperlipidemia , unspecified (8) Sinus bradycardia, chronic Code(s): R00.1 - BRADYCARDIA, UNSPECIFIED Status: Chronic - Plan cont current plan of care, out of bed/ambulate * .
--- NOTE | 2017-10-17 16:58 | PDOC.PN ---
- Subjective Encounter Start Date: 10/17/17 Encounter Start Time: 14:30 Pt feeling better, visited earlier, but sleeping soundly. diuscussed case with Dr Rowan, wants to try single dose of po dilaudid, increased toradol. no F/C, no N/v, gary po. pain about the same 10 point ROS performed and neg for all systems except as per HPI - Objective Resuscitation Status: Resuscitation Status FULL:Full Resuscitation MAR Reviewed: Yes Vital Signs & Weight: Vital Signs (12 hours) Temp Pulse Resp BP Pulse Ox 10/17/17 15:26 98.3 F 72 22 H 130/77 94 L 10/17/17 11:21 97.9 F 64 18 114/59 L 96 10/17/17 07:50 97.4 F L 43 L 16 10/17/17 07:15 98.0 F 51 L 18 124/66 95 Weight Weight 132 lb 4.8 oz I&O: 10/16/17 10/17/17 10/18/17 06:59 06:59 06:59 Intake Total 2212 3357 2300 Output Total 1550 3650 825 Balance 662 -293 1475 Result Diagrams: 10/17/17 04:17 10/17/17 04:17 Phys Exam - Physical Examination Constitutional: NAD HEENT: PERRLA, moist MMs, sclera anicteric, oral pharynx no lesions Neck: no nodes, no JVD, supple, full ROM Respiratory: no wheezing, no rales, no rhonchi, clear to auscultation bilateral Cardiovascular: RRR, no significant murmur, no rub Gastrointestinal: soft, non-tender, no distention, positive bowel sounds Musculoskeletal: no edema, pulses present Neurological: non-focal, normal sensation, moves all 4 limbs Lymphatic: no nodes Psychiatric: normal affect, A&O x 3 Skin: no rash, normal turgor, cap refill <2 seconds Dx/Plan (1) Acute on chronic pancreatitis Code(s): K85.90 - ACUTE PANCREATITIS WITHOUT NECROSIS OR INFECTION, UNSP; K86.1 - OTHER CHRONIC PANCREATITIS Status: Acute Comment: diet, IV fluids, pain controll. increase tramadol to home dose, toradol increased for breakthrough. avoid narcotics after single dose po dilaudid (2) CAD (coronary artery disease) Code(s): I25.10 - ATHSCL HEART DISEASE OF [place] CORONARY ARTERY W/O ANG PCTRS Status: Chronic Qualifiers: Coronary Disease-Associated Artery/Lesion type: [place] artery [place] vs. transplanted heart: [place] heart Associated angina: without angina Qualified Code(s): I25.10 - Atherosclerotic heart disease of [place] coronary artery without angina pectoris (3) COPD (chronic obstructive pulmonary disease) Status: Chronic Qualifiers: COPD type: emphysema Emphysema type: unspecified Qualified Code(s): J43.9 - Emphysema, unspecified (4) Anxiety Code(s): F41.9 - ANXIETY DISORDER, UNSPECIFIED Status: Chronic (5) Chronic pancreatitis Code(s): K86.1 - OTHER CHRONIC PANCREATITIS Status: Chronic Qualifiers: Pancreatitis type: alcohol induced Qualified Code(s): K86.0 - Alcohol- induced chronic pancreatitis (6) Hyperlipidemia Code(s): E78.5 - HYPERLIPIDEMIA, UNSPECIFIED Status: Chronic Qualifiers: Hyperlipidemia type: unspecified Qualified Code(s): E78.5 - Hyperlipidemia , unspecified (7) Sinus bradycardia, chronic Code(s): R00.1 - BRADYCARDIA, UNSPECIFIED Status: Chronic - Plan * .
[2017-10-17] MEDS: ALPRAZolam 0.5 MG TAB PO PRN (17:04)
[2017-10-18] MEDS: traMADol HCl 50 MG TAB PO PRN ×2 (01:21→16:37)
[2017-10-18] MEDS: Sodium Chloride 0.9% 1,000 ML IV SCH ×3 (01:30→20:05)
[2017-10-18] MEDS: Promethazine 25 MG TAB PO PRN ×4 (03:40→20:07)
[2017-10-18] MEDS: Ketorolac Tromethamine 30 MG/ML VIAL IVP PRN ×3 (05:40→18:11)
[2017-10-18] MEDS: ALPRAZolam 0.5 MG TAB PO PRN ×2 (05:43→18:15)
[2017-10-18] MEDS: Atorvastatin Calcium 10 MG TAB PO SCH (09:30)
[2017-10-18] MEDS: Pancrelipase DR 12000 1 CAP PO SCH ×3 (09:30→16:40)
[2017-10-18] MEDS: Aspirin 325 MG TAB PO SCH (09:30)
[2017-10-18] MEDS: Citalopram 20 MG TAB PO SCH (09:30)
[2017-10-18] MEDS: Famotidine 20 MG TAB PO SCH ×2 (09:30→20:06)
--- NOTE | 2017-10-18 13:18 | PDOC.PN ---
- Subjective Encounter Start Date: 10/18/17 Encounter Start Time: 09:30 pt states po hydromorphone worked well, toradola dn tramadol not so much. asking for more, but i explained i was not willing to keep it going. No F/c, no N/V/d/C at present, some nausea after eating. RUQ tender, pain radiated to back 10 point ROS performed and neg for all systems except as per HPI - Objective Resuscitation Status: Resuscitation Status FULL:Full Resuscitation MAR Reviewed: Yes Vital Signs & Weight: Vital Signs (12 hours) Temp Pulse Resp BP Pulse Ox 10/18/17 11:47 97.1 F L 58 L 16 119/72 96 10/18/17 08:00 97.4 F L 75 16 10/18/17 07:14 97.4 F L 75 16 117/76 95 10/18/17 01:30 47 L 16 110/55 L 93 L Weight Weight 132 lb 4.8 oz I&O: 10/17/17 10/18/17 10/19/17 06:59 06:59 06:59 Intake Total 3357 4770 565 Output Total 3650 4225 2500 Balance -293 545 -1935 Result Diagrams: 10/17/17 04:17 10/17/17 04:17 Phys Exam - Physical Examination Constitutional: NAD HEENT: PERRLA, moist MMs, sclera anicteric, oral pharynx no lesions Neck: no nodes, no JVD, supple, full ROM Respiratory: no wheezing, no rales, no rhonchi, clear to auscultation bilateral Cardiovascular: RRR, no significant murmur, no rub Gastrointestinal: soft, no distention, positive bowel sounds RUQ tender, no r/R/g Musculoskeletal: no edema, pulses present Neurological: non-focal, normal sensation, moves all 4 limbs Lymphatic: no nodes Psychiatric: normal affect, A&O x 3 Skin: no rash, normal turgor, cap refill <2 seconds Dx/Plan (1) Acute on chronic pancreatitis Code(s): K85.90 - ACUTE PANCREATITIS WITHOUT NECROSIS OR INFECTION, UNSP; K86.1 - OTHER CHRONIC PANCREATITIS Status: Acute Comment: diet, IV fluids, pain controll. increase tramadol to home dose, toradol increased for breakthrough. avoid narcotics after single dose po dilaudid (2) CAD (coronary artery disease) Code(s): I25.10 - ATHSCL HEART DISEASE OF [place] CORONARY ARTERY W/O ANG PCTRS Status: Chronic Qualifiers: Coronary Disease-Associated Artery/Lesion type: [place] artery [place] vs. transplanted heart: [place] heart Associated angina: without angina Qualified Code(s): I25.10 - Atherosclerotic heart disease of [place] coronary artery without angina pectoris (3) COPD (chronic obstructive pulmonary disease) Status: Chronic Qualifiers: COPD type: emphysema Emphysema type: unspecified Qualified Code(s): J43.9 - Emphysema, unspecified (4) Anxiety Code(s): F41.9 - ANXIETY DISORDER, UNSPECIFIED Status: Chronic (5) Chronic pancreatitis Code(s): K86.1 - OTHER CHRONIC PANCREATITIS Status: Chronic Qualifiers: Pancreatitis type: alcohol induced Qualified Code(s): K86.0 - Alcohol- induced chronic pancreatitis (6) Hyperlipidemia Code(s): E78.5 - HYPERLIPIDEMIA, UNSPECIFIED Status: Chronic Qualifiers: Hyperlipidemia type: unspecified Qualified Code(s): E78.5 - Hyperlipidemia , unspecified (7) Sinus bradycardia, chronic Code(s): R00.1 - BRADYCARDIA, UNSPECIFIED Status: Chronic - Plan * .
[2017-10-18] MEDS: HYDROmorphone 2 MG TAB PO SCH (20:06)
--- NOTE | 2017-10-18 23:52 | PRG ---
DATE OF SERVICE: 10/18/2017 REASON FOR CONSULTATION: Chronic pancreatitis. SUBJECTIVE: Yesterday, patient was given Dilaudid for her midepigastric abdominal pain with improvem ent of her symptoms with that medication administration, however, with that medication wearing off, h er pain was no longer managed by the Toradol or tramadol. Today, she says she was able to tolerate s ome of her diet, but did have increasing abdominal pain with consumption of solid food. She does als o endorse some increased nausea and vomiting with an increase in her abdominal pain. Currently denie s any vomiting, fevers, chills, odynophagia, dysphagia, or GI bleeding. OBJECTIVE: VITAL SIGNS: Temperature 97.4, pulse 66, blood pressure 99/57, respiratory rate 12, satting 91% on r oom air. GENERAL: Patient is lying in bed in no acute distress. Alert and oriented x4. CARDIOVASCULAR: Regular rate and rhythm. RESPIRATORY: Clear to auscultation bilaterally. ABDOMEN: Normoactive bowel sounds, soft, nondistended. Tenderness to palpation in the midepigastric region. EXTREMITIES: No cyanosis, clubbing, or edema. LABORATORY DATA: No current data is available for review. IMAGING DATA: No current GI imaging is available for review. ASSESSMENT AND PLAN: Patient is a 46-year-old female with past medical history of coronary artery di sease, status post stent placement; anxiety; depression; posttraumatic stress disorder; hyperlipidemi a; chronic obstructive pulmonary disease, and chronic pancreatitis presenting with an acute on chroni c pancreatitis. Acute on chronic pancreatitis. Patient is presenting with a 4-5 day history of worsening abdominal p ain in the midepigastric region with radiation to her back consistent with her prior bouts of pancrea titis in the past. She had been responding well to pain control and advancing of diet until today wh en she had a significant worsening of her abdominal pain with ingestion of food. At this point based on her clinical status, it seems that her pancreas is still very much inflamed and she may need more bowel rest prior to advancing her diet. RECOMMENDATIONS: 1. Would continue IV fluid administration for the time being, but place the patient n.p.o., given si gnificant increase in her abdominal pain with advancement of her diet. 2. We will schedule Dilaudid twice daily in addition to Toradol and tramadol for pain control. Padma patel, this patient will need to be weaned off this medication prior to discharge. 3. Would continue pancreatic enzyme supplementation as you are doing. 4. If her pain continues to worsen despite Dilaudid administration or if she develops fever, I would then consider CT of the abdomen and pelvis for possible pancreatic fluid collection and/or necrosis/ infection. We will continue to follow. Please call with any additional questions.
[2017-10-19] MEDS: Sodium Chloride 0.9% 1,000 ML IV SCH ×4 (03:10→16:50)
[2017-10-19] MEDS: Ketorolac Tromethamine 30 MG/ML VIAL IVP PRN ×2 (03:10→14:39)
[2017-10-19] MEDS: Promethazine 25 MG TAB PO PRN ×3 (03:17→14:38)
[2017-10-19 04:58] LABS: #Eosinphils 0.1 thou/uL (0.0-0.7); #Lymphocytes 1.7 thou/uL (1.20-3.40); #Monocytes 0.5 thou/uL (0.11-0.59); %Basophils 0.4 % (0.0-1.0); %Eosinophils 3.2 % (0.0-10.0); %Lymphocytes 38.1 % (21.0-51.0); %Monocytes 11.8 % (0.0-10.0); %Neutrophils 46.5 % (42.0-75.0); Hemoglobin 11.5 g/dL (12.0-16.0); Mean Corpuscular HGB CONC 32.7 g/dL (32.0-36.0); Mean Corpuscular Hemoglobin 31.5 pg (27.0-31.0); Mean Corpuscular Volume 96.3 fl (81.0-99.0); Mean Platelet Volume 7.7 fL (7.4-10.4); Platelet Count 187 thou/uL (130-400); RBC Distribution Width 12.9 % (11.5-14.5); Red Blood Cell (RBC) Count 3.64 mill/uL (4.20-5.40); White Blood Cell (WBC) Count 4.4 thou/uL (4.8-10.8)
[2017-10-19 05:25] LABS: ALT (SGPT) 127 U/L (8-55); AST (SGOT) 102 U/L (5-34); Albumin 3.6 g/dL (3.5-5.0); Alkaline Phosphatase 63 U/L (40-150); Anion Gap 12 mmol/L (10-20); BUN (Urea Nitrogen) 12 mg/dL (7.0-18.7); Bilirubin, Total 0.3 mg/dL (0.2-1.2); Calc. Creatinine Clearance 91 mL/min (70-130); Calcium 8.5 mg/dL (7.8-10.44); Carbon Dioxide 24 mmol/L (22-29); Chloride 107 mmol/L (98-107); Estimated GFR-MDRD 86; Globulin 2.2 g/dL (2.4-3.5); Glucose 94 mg/dL (70-105); Lipase 69 U/L (8-78); Magnesium 1.9 mg/dL (1.6-2.6); Potassium 4.6 mmol/L (3.5-5.1); Protein, Total 5.8 g/dL (6.0-8.3); Sodium 138 mmol/L (136-145)
[2017-10-19] MEDS: traMADol HCl 50 MG TAB PO PRN ×2 (05:56→16:49)
[2017-10-19] MEDS: Pancrelipase DR 12000 1 CAP PO SCH ×3 (07:57→17:04)
--- NOTE | 2017-10-19 09:43 | PDOC.PN ---
- Subjective Encounter Start Date: 10/19/17 Encounter Start Time: 09:05 Subjective: f/u for acute/chronic pancreatitis with slow improvement. Remains on -: Toradol, Tramadol and Dilaudid po with some abd pain and nausea. NPO -: currently last po intake 24h ago. No BM. - Objective Resuscitation Status: Resuscitation Status FULL:Full Resuscitation MAR Reviewed: Yes Vital Signs & Weight: Vital Signs (12 hours) Temp Pulse Resp BP Pulse Ox 10/19/17 07:45 98.3 F 67 12 10/19/17 07:25 98.3 F 67 12 108/52 L 90 L 10/19/17 03:14 97.4 F L 63 20 127/71 93 L Weight Weight 132 lb 4.8 oz I&O: 10/18/17 10/19/17 10/20/17 06:59 06:59 06:59 Intake Total 4770 2042 Output Total 4226 4400 700 Balance 409 -3970 -700 Result Diagrams: 10/19/17 03:56 10/19/17 03:56 Additional Labs: Laboratory Tests 10/15/17 10/16/17 10/17/17 22:44 09:59 04:17 AST 14 13 ALT 12 12 Lipase 120 H 101 H 102 H 10/19/17 03:56 AST 102 H ALT 127 H Lipase 69 EKG Reviewed by me: Yes (Tele - SR) Phys Exam - Physical Examination Constitutional: NAD HEENT: PERRLA, moist MMs, sclera anicteric, oral pharynx no lesions Neck: no nodes, no JVD, supple Respiratory: no wheezing, no rales, no rhonchi, clear to auscultation bilateral Cardiovascular: RRR, no significant murmur, no rub, gallop TTP in RUQ and R flank region, mild distention Gastrointestinal: soft, positive bowel sounds Musculoskeletal: no edema, pulses present Neurological: non-focal, normal sensation, moves all 4 limbs Psychiatric: normal affect, A&O x 3 Skin: no rash, normal turgor, cap refill <2 seconds Dx/Plan (1) Acute on chronic pancreatitis Code(s): K85.90 - ACUTE PANCREATITIS WITHOUT NECROSIS OR INFECTION, UNSP; K86.1 - OTHER CHRONIC PANCREATITIS Status: Acute Comment: NPO currently, consider clear liquids later today, Toradol, Tramadol for pain control, wean off Dilaudid , check CT abd/pelvis today to assess pancreas/liver (2) Transaminitis Code(s): R74.0 - NONSPEC ELEV OF LEVELS OF TRANSAMNS & LACTIC ACID DEHYDRGNSE Status: Acute Comment: ? etiology, likely iatrogenic, check CT abd/pel today, serial LFT's (3) CAD (coronary artery disease) Code(s): I25.10 - ATHSCL HEART DISEASE OF [place] CORONARY ARTERY W/O ANG PCTRS Status: Chronic Qualifiers: Coronary Disease-Associated Artery/Lesion type: [place] artery [place] vs. transplanted heart: [place] heart Associated angina: without angina Qualified Code(s): I25.10 - Atherosclerotic heart disease of [place] coronary artery without angina pectoris Comment: Continue ASA and Lipitor (4) Anxiety Code(s): F41.9 - ANXIETY DISORDER, UNSPECIFIED Status: Chronic Comment: Continue Xanax and Celexa (5) Hyperlipidemia Code(s): E78.5 - HYPERLIPIDEMIA, UNSPECIFIED Status: Chronic Qualifiers: Hyperlipidemia type: unspecified Qualified Code(s): E78.5 - Hyperlipidemia , unspecified Comment: Continue Lipitor - Plan out of bed/ambulate, DVT proph w/SCDs Stable currently -: NPO x water -: Check CT abd/pelvis today -: Pain control with Tramadol and Toradol -: Wean Dilaudid dosing * Convert to inpt status * Decrease IVF's 100ml/h * AM lab: CMP
[2017-10-19] MEDS: Famotidine 20 MG TAB PO SCH ×2 (09:51→20:20)
[2017-10-19] MEDS: Atorvastatin Calcium 10 MG TAB PO SCH (09:51)
[2017-10-19] MEDS: HYDROmorphone 2 MG TAB PO SCH ×2 (09:51→20:20)
[2017-10-19] MEDS: Citalopram 20 MG TAB PO SCH (09:52)
[2017-10-19] MEDS: Aspirin 325 MG TAB PO SCH (09:52)
--- NOTE | 2017-10-19 16:25 | CT ---
CT ABDOMEN NONCONTRAST CT PELVIS NONCONTRAST: (urolithiasis protocol) DATE: 10/19/17. HISTORY: A 46-year-old female with a history of chronic pancreatitis, who presents with suspected acute pancre atitis. Abdominal pain. COMPARISON: 03/23/17. TECHNIQUE: Because of history of allergy to both iodinated contrast and prednisone, no IV contrast was administe red. As per Dr. Greg Sampson, no oral contrast was given. FINDINGS: Other than for urolithiasis, the lack of IV and oral contrast limits the evaluation. There are new bilateral very small pleural effusions. There is new horizontally broad layer of atele ctasis at all of the basilar segments of the left lower lobe. A large amount of colonic stool in the cecum, ascending colon, transverse colon, and moderately in the descending colon. Within the limita tions of a noncontrast CT, no abnormality is identified involving the bilateral kidneys, adrenals, pa ncreas, or spleen. No signs of acute cholecystitis. Atherosclerotic calcification without aneurysm of abdominal aorta. No peripancreatic edema/fat stranding is identified. No pancreatic calcificatio ns and no pancreatic ductal dilatation. Pancreatic parenchymal volume is normal. There is no eviden ce of pancreatic pseudocyst. The liver has diffusely mildly, homogeneously increased attenuation. The liver is normal in size, an d no other abnormality is identified involving the liver. The cecum is located deep within the right side of the pelvic cavity, deeply indenting the dome of the urinary bladder. Appendix is surgically absent by history. No small bowel dilation. New finding of a small amount of free fluid within the right posterior inferior aspect of the pelvic cavity with a density of approximately 20 HU. No pneu moperitoneum. No high-grade hydronephrosis. Renal collecting systems are mildly dilated, especially the right, similar to the previous CT. No renal, ureteral, or bladder calculus. No signs of acute colonic diverticulitis. The uterus is surgically absent. IMPRESSION: 1. Very small bilateral pleural effusions. 2. Left basilar lower lobe atelectasis. 3. Within the limitations of a noncontrast scan, no pancreatic abnormality is identified. 4. high-density of liver parenchyma: suggestive of hemochromatosis. 5. A small amount of free fluid in the pelvic cavity which could be a small amount of hemoperitoneum , of unknown origin. 6. Status post appendectomy and hysterectomy. 7. A large volume of retained stool, especially in the right hemicolon, suggestive of constipation. SIMONE Barcenas POS: JODIE
[2017-10-19] MEDS: ALPRAZolam 0.5 MG TAB PO PRN (18:20)
[2017-10-19] MEDS ORDERED: predniSONE 50 MG TAB PO SCH (20:00)
--- NOTE | 2017-10-19 23:53 | PRG ---
DATE OF SERVICE: 10/19/2017 REASON FOR CONSULTATION: Acute on chronic pancreatitis. SUBJECTIVE: Today, the patient states that her midepigastric abdominal pain has improved with the tw ice daily dosing of Dilaudid, but in between doses of this particular medication, she states that her abdominal pain is unchanged in severity and location. She also adds that her appetite has not retur marshall with this continued abdominal pain despite n.p.o. status. Further, she also adds that she has be en feeling nauseated for the greater part of the morning, but no episodes of actual emesis. Currentl y, denies any vomiting, fevers, chills, odynophagia, dysphagia, or GI bleeding. OBJECTIVE: VITAL SIGNS: Temperature 97.9, pulse 57, blood pressure 116/65, respiratory rate 16, satting 93% on room air. GENERAL: The patient is lying in bed in no acute distress. Alert and oriented x4. CARDIOVASCULAR: Regular rate and rhythm. RESPIRATORY: Clear to auscultation bilaterally. ABDOMEN: Normoactive bowel sounds. Soft, nondistended. Tenderness to palpation in the midepigastri c region. EXTREMITIES: No cyanosis, clubbing, or edema. LABORATORY DATA: CBC with a white blood cell count of 4.4, hemoglobin 11.5, hematocrit 35, platelets 187. Chemistry with a sodium of 138, potassium 4.6, chloride 107, CO2 of 24, BUN 12, creatinine 0.7 2, glucose 94. IMAGING DATA: A noncontrasted CT of the abdomen and pelvis obtained on 10/19/2017 showed very small bilateral pleural effusions with left basilar as well as left lower lobe atelectasis; however, no zamarripa creatic abnormalities were seen within the limitations of a noncontrasted exam. Lastly, a large volu me of retained stool, especially in the right hemicolon was seen suggestive of constipation. ASSESSMENT AND PLAN: The patient is a 46-year-old female with past medical history of coronary arter y disease, status post stent placement; anxiety; depression; posttraumatic stress disorder; hyperlipi demia; chronic obstructive pulmonary disease; and chronic pancreatitis presenting with an acute on ch ronic pancreatitis episode. Acute on chronic pancreatitis. The patient presenting with 4 to 5-day history of worsening abdominal pain in the midepigastric region with radiation to her back consistent with prior bouts of pancreati tis in the past. Currently, responding well to pain control with Dilaudid dose twice daily, in addit ion to breakthrough pain medications including tramadol and Toradol. She still continues to endorse some anorexia, mostly due to her abdominal pain with the dietary indiscretions noted during this admi ssion (has been eating cheese at bedside brought by a friend). CT scan today did not show any eviden ce of necrotizing pancreatitis or walled off necrosis or presence of pancreatic pseudocyst that might contribute to progressing of her abdominal pain. At this point in time, her stated clinical symptom s and that seen on her labs and imaging are not correlating well with each other, and it is unclear h ow much her pancreatitis is contributing to her current abdominal pain. Given the increased stool wi thin the CT abdomen and pelvis, she will need to be placed on a bowel regimen with the recent adminis tration of narcotics. RECOMMENDATIONS: 1. We would continue IV fluid administration for the time being, but keep the patient n.p.o. due to possible pancreatitis pain. 2. Continue pain medications with Dilaudid, Toradol, and tramadol, but consider decreasing Dilaudid tomorrow to once daily and attempt to wean her from narcotics and prepare her for discharge. 3. Continue pancreatic enzyme supplementation as you are doing. 4. If the patient's appetite is returning, we would then slowly advance diet as tolerated, starting with a clear liquid diet and slowly progressing to a low-fat diet. 5. I will place the patient on daily MiraLax for constipation seen on CT. We will continue to follow. Please call with any additional questions.
[2017-10-20] MEDS: Ketorolac Tromethamine 30 MG/ML VIAL IVP PRN ×3 (00:29→17:44)
[2017-10-20] MEDS: Promethazine 25 MG TAB PO PRN ×3 (00:30→17:45)
[2017-10-20 06:57] LABS: ALT (SGPT) 175 U/L (8-55); AST (SGOT) 99 U/L (5-34); Albumin 3.6 g/dL (3.5-5.0); Alkaline Phosphatase 72 U/L (40-150); Anion Gap 9 mmol/L (10-20); BUN (Urea Nitrogen) 6 mg/dL (7.0-18.7); Bilirubin, Total 0.5 mg/dL (0.2-1.2); Calc. Creatinine Clearance 96 mL/min (70-130); Calcium 8.7 mg/dL (7.8-10.44); Carbon Dioxide 26 mmol/L (22-29); Chloride 107 mmol/L (98-107); Estimated GFR-MDRD Greater than 90; Globulin 2.1 g/dL (2.4-3.5); Glucose 89 mg/dL (70-105); Potassium 4.1 mmol/L (3.5-5.1); Protein, Total 5.7 g/dL (6.0-8.3); Sodium 138 mmol/L (136-145)
[2017-10-20] MEDS ORDERED: diphenhydrAMINE 50 MG CAP PO SCH (08:00)
[2017-10-20] MEDS: HYDROmorphone 2 MG TAB PO SCH ×2 (08:19→22:28)
[2017-10-20] MEDS: Citalopram 20 MG TAB PO SCH (08:21)
[2017-10-20] MEDS: Famotidine 20 MG TAB PO SCH ×2 (08:22→22:28)
[2017-10-20] MEDS: Atorvastatin Calcium 10 MG TAB PO SCH (08:22)
[2017-10-20] MEDS: Polyethylene Glycol 3350 17 GM Packet PO SCH ×2 (08:24→12:49)
[2017-10-20] MEDS: Pancrelipase DR 12000 1 CAP PO SCH ×3 (08:25→16:49)
[2017-10-20] MEDS: Aspirin 325 MG TAB PO SCH (08:26)
[2017-10-20] MEDS: ALPRAZolam 0.5 MG TAB PO PRN (09:28)
[2017-10-20] MEDS ORDERED: Aspirin 325 MG TAB ONE (09:30)
[2017-10-20] MEDS: traMADol HCl 50 MG TAB PO PRN (12:46)
[2017-10-20] MEDS ORDERED: Bisacodyl 5 MG TAB PO SCH (13:15)
--- NOTE | 2017-10-20 13:19 | PDOC.PN ---
- Subjective Encounter Start Date: 10/20/17 Encounter Start Time: 13:05 Subjective: f/u for acute/chronic pancreatitis and abd pain likely multifactorial -: including constipation. Tolerating clear liquids and limiting pain meds. -: No fever, chills, nausea. - Objective MAR Reviewed: Yes Vital Signs & Weight: Vital Signs (12 hours) Temp Pulse Resp BP Pulse Ox 10/20/17 08:00 97.7 F 55 L 14 10/20/17 07:58 97.7 F 55 L 14 119/73 92 L I&O: 10/19/17 10/20/17 10/21/17 06:59 06:59 06:59 Intake Total 240 Output Total 1200 Balance -960 Result Diagrams: 10/19/17 03:56 10/20/17 06:09 Radiology Reviewed by me: Yes (CT abd - no acute pancreatic process, large stool R hemicolon) Phys Exam - Physical Examination Constitutional: NAD HEENT: PERRLA, moist MMs, sclera anicteric, oral pharynx no lesions Neck: no nodes, no JVD, supple Respiratory: no wheezing, no rales, no rhonchi, clear to auscultation bilateral S1, S2 Cardiovascular: RRR, no significant murmur, no rub, gallop mild TTP in RUQ Gastrointestinal: soft, no distention, positive bowel sounds Musculoskeletal: no edema, pulses present Neurological: non-focal, normal sensation, moves all 4 limbs Psychiatric: normal affect, A&O x 3 Skin: no rash, normal turgor, cap refill <2 seconds Dx/Plan (1) Acute on chronic pancreatitis Code(s): K85.90 - ACUTE PANCREATITIS WITHOUT NECROSIS OR INFECTION, UNSP; K86.1 - OTHER CHRONIC PANCREATITIS Status: Acute Comment: ADAT, Toradol, Tramadol for pain control, wean off Dilaudid (2) Transaminitis Code(s): R74.0 - NONSPEC ELEV OF LEVELS OF TRANSAMNS & LACTIC ACID DEHYDRGNSE Status: Acute Comment: ? etiology, likely iatrogenic, check CT abd/pel today, serial LFT's (3) CAD (coronary artery disease) Code(s): I25.10 - ATHSCL HEART DISEASE OF [place] CORONARY ARTERY W/O ANG PCTRS Status: Chronic Qualifiers: Coronary Disease-Associated Artery/Lesion type: [place] artery [place] vs. transplanted heart: [place] heart Associated angina: without angina Qualified Code(s): I25.10 - Atherosclerotic heart disease of [place] coronary artery without angina pectoris Comment: Continue ASA and Lipitor (4) Anxiety Code(s): F41.9 - ANXIETY DISORDER, UNSPECIFIED Status: Chronic Comment: Continue Xanax and Celexa (5) Hyperlipidemia Code(s): E78.5 - HYPERLIPIDEMIA, UNSPECIFIED Status: Chronic Qualifiers: Hyperlipidemia type: unspecified Qualified Code(s): E78.5 - Hyperlipidemia , unspecified Comment: Continue Lipitor (6) Constipation Code(s): K59.00 - CONSTIPATION, UNSPECIFIED Status: Acute Qualifiers: Constipation type: slow transit constipation Qualified Code(s): K59.01 - Slow transit constipation Comment: Dulcolax, Senna, OOB/ambulate - Plan out of bed/ambulate, DVT proph w/SCDs Stable overall -: ADAT today -: Senna and Dulcolax today -: Saline lock IVF -: Decrease Dilaudid 0.5mg BID * AM lab: CMP * Home in am
--- NOTE | 2017-10-20 13:29 | PRG ---
DATE OF SERVICE: 10/20/2017 GI INPATIENT DAILY PROGRESS NOTE SUBJECTIVE: Ms. Oakley says she is feeling a lot better today. Her pain requirements have declined. She is still taking some tramadol. She is tolerating her clear liquid diet today. She is eager to advance her diet and go home if she can. She has no other complaints aside from continued constipat ion, no bowel movement over the past week. OBJECTIVE: VITAL SIGNS: Temperature 97.7, pulse 55, blood pressure 119/73, 92% oxygen saturation on room air. GENERAL: No acute distress. HEART: Regular rate and rhythm. LUNGS: Clear to auscultation bilaterally. ABDOMEN: Bowel sounds are present, soft, some tenderness to palpation in the upper abdomen, but no g uarding or rebound tenderness. EXTREMITIES: No peripheral edema. LABORATORY STUDIES: Sodium 138, potassium 4.1, BUN 6, creatinine 0.68. Lipase 69, total bilirubin 0 .5, alkaline phosphatase 72, AST 99, and ALT 175. WBC 4.4, hemoglobin 11.5, platelets 187. ASSESSMENT AND PLAN: 1. Chronic pancreatitis. 2. Constipation. I reviewed with the patient, her lipase level is not very significant. A CT scan was not very impressive for pancreatitis. Certainly, no fluid collection or other significant pathol ogy. She does have known chronic pancreatitis based on endoscopic ultrasound in the past. Clinicall y, she appears to be improved today. I think we can go ahead and continue to advance her diet. Hope fully, she will be able to tolerate a low fat diet by this evening. If she is doing well with this a nd wants to go home, I think that would be okay from a GI standpoint. She should continue on her zamarripa creatic enzyme supplementation. Regarding the constipation, she feels Dulcolax works better than anything. This is what she takes at home. I will go ahead and order this as well. Please call at any time with questions or concerns.
[2017-10-20] MEDS ORDERED: Senokot 8.6 MG TAB PO SCH (13:30)
[2017-10-20] MEDS: Sodium Chloride 0.9% 1,000 ML IV SCH (14:10)
[2017-10-21] MEDS: Promethazine 25 MG TAB PO PRN ×2 (02:05→08:42)
[2017-10-21 05:50] LABS: ALT (SGPT) 173 U/L (8-55); AST (SGOT) 87 U/L (5-34); Albumin 3.9 g/dL (3.5-5.0); Alkaline Phosphatase 84 U/L (40-150); Anion Gap 10 mmol/L (10-20); BUN (Urea Nitrogen) 10 mg/dL (7.0-18.7); Bilirubin, Total 0.5 mg/dL (0.2-1.2); Calc. Creatinine Clearance 87 mL/min (70-130); Calcium 9.1 mg/dL (7.8-10.44); Carbon Dioxide 27 mmol/L (22-29); Chloride 105 mmol/L (98-107); Estimated GFR-MDRD 82; Globulin 2.4 g/dL (2.4-3.5); Glucose 77 mg/dL (70-105); Potassium 4.2 mmol/L (3.5-5.1); Protein, Total 6.3 g/dL (6.0-8.3); Sodium 138 mmol/L (136-145)
[2017-10-21] MEDS: Pancrelipase DR 12000 1 CAP PO SCH ×2 (08:36→11:49)
[2017-10-21] MEDS: Aspirin 325 MG TAB PO SCH (08:37)
[2017-10-21] MEDS: Citalopram 20 MG TAB PO SCH (08:37)
[2017-10-21] MEDS: Famotidine 20 MG TAB PO SCH (08:37)
[2017-10-21] MEDS: Atorvastatin Calcium 10 MG TAB PO SCH (08:37)
[2017-10-21] MEDS: Polyethylene Glycol 3350 17 GM Packet PO SCH (08:38)
[2017-10-21] MEDS: Ketorolac Tromethamine 30 MG/ML VIAL IVP PRN (11:59)
[2017-10-21 12:19] VITALS: TEMP 97.7
[2017-10-21] MEDS: HYDROmorphone 2 MG TAB PO SCH (15:13)
[2017-10-21 16:27] VITALS: BP 118/84
--- NOTE | 2017-10-22 00:12 | DIS ---
DATE OF ADMISSION: 10/19/2017 DATE OF DISCHARGE: 10/21/2017 DISCHARGE DIAGNOSES: 1. Acute on chronic pancreatitis, improved. 2. Transaminitis, iatrogenic. 3. Coronary artery disease, chronic and stable. 4. Anxiety disorder, stable. 5. Hyperlipidemia. 6. Constipation, resolved. CONSULTATIONS: Dr. Aguilar and Dr. Rowan with GI service. PERTINENT LABORATORY DATA AND X-RAY FINDINGS: AST ranged between 13-102, ALT ranged between 12-175. Lipase ranged between 69-120. Total cholesterol 151, triglycerides 45, HDL 58, LDL 84. CBC showed a hemoglobin ranging between 11.5-12.5. Portable chest x-ray dated 10/15/2017 showed no acute cardio pulmonary process. CT of the abdomen and pelvis dated 10/19/2017 showed left lower lobe atelectasis. Prominent liver parenchyma. Large volume of retained stool in the right hemicolon. HOSPITAL COURSE: Patient was initially admitted after presenting with chest and abdominal pain with initial concern for potential anginal equivalent. Patient was also noted with concomitant elevated l ipase and concerning for an acute pancreatitis in the context of chronic pancreatitis. Patient was p laced on n.p.o. status and given IV fluids as well as IV morphine sulfate. Patient was slow to clini antony improve with increasing abdominal pain and nausea. Patient was evaluated by the GI service wit h recommendations for conservative management. Patient underwent CT imaging of the abdomen and pelvi s without contrast showing no focal necrosis or phlegmon and increased stool of the right hemicolon. Patient was placed on MiraLax and stool softeners with resolution of the constipation by the time of discharge. Patient was slowly advanced from clear liquids to regular diet, tolerating without diffi culty. Overall, patient remained clinically stable throughout the hospital course, ambulating withou t assistance or difficulty, tolerating regular oral intake with stable vital signs. I have examined the patient, discussed laboratory findings, and follow up instructions, at which point, patient has v erbalized understanding and agreement. Patient is overall stable and ready for discharge on 10/22/19 18. DISCHARGE MEDICATIONS: 1. Xanax 1 mg p.o. daily. 2. Enteric-coated aspirin 81 mg 1 tab p.o. daily. 3. Citalopram 40 mg p.o. daily. 4. Creon DR 1 tablet p.o. t.i.d. with meals. 5. Nitroglycerin 0.4 mg sublingually as needed for chest pain. 6. Phenergan 25 mg p.o. q.4-6 hours p.r.n. 7. Zocor 20 mg p.o. q.a.m. 8. Tramadol 50 mg p.o. q.6 hours p.r.n. pain. 9. Zantac 150 mg p.o. daily. FOLLOWUP: Patient may follow up with her primary care provider, Livia Valle M.D. within 7 days of discharge. CONDITION ON DISCHARGE: Stable. ACTIVITY: Ad-brittny. DIET: Heart healthy. CODE STATUS: FULL. DISPOSITION: Home on 10/21/2017.
--- NOTE | 2017-11-14 22:14 | EKG ---
Test Reason : CHEST PAIN Blood Pressure : / mmHG Vent. Rate : 073 BPM Atrial Rate : 073 BPM P-R Int : 140 ms QRS Dur : 084 ms QT Int : 408 ms P-R-T Axes : 062 052 045 degrees QTc Int : 449 ms Normal sinus rhythm with sinus arrhythmia Nonspecific ST and T wave abnormality Abnormal ECG Confirmed by CASANDRA RAMIREZ D.O. ([id number]), photo editor FILIBERTO SAUCEDO ([id number]) on 11/14/2017 10:13:30 PM Referred By: APRYL RAMIREZ Confirmed By:CASANDRA RAMIREZ D.O.
== END 2017-10-21 16:45 | disposition home or self-care (01) | DRG 440 ==
LOC: ERS 16:23 → 2SW 18:45 → OBSVTOIN 10-19 09:39 → ONC 10-19 15:58 → SURG B 10-20 11:13
PROVIDERS: ADMIT Internal Medicine; ATTEND Internal Medicine
DX: K85.90 Acute pancreatitis without necrosis or infection, unspecified (principal); E78.5 Hyperlipidemia, unspecified; I25.10 Atherosclerotic heart disease of native coronary artery without angina pectoris; K86.1 Other chronic pancreatitis; F41.9 Anxiety disorder, unspecified; F32.9 Major depressive disorder, single episode, unspecified; K59.00 Constipation, unspecified; J44.9 Chronic obstructive pulmonary disease, unspecified; Z90.49 Acquired absence of other specified parts of digestive tract; Z90.710 Acquired absence of both cervix and uterus; Z88.1 Allergy status to other antibiotic agents; Z88.5 Allergy status to narcotic agent; Z88.8 Allergy status to other drugs, medicaments and biological substances; F43.10 Post-traumatic stress disorder, unspecified; Z95.5 Presence of coronary angioplasty implant and graft
CPT/HCPCS: 36415; 71045; 74176; 80053; 80061; 82553; 83690; 83735; 84484; 85025; 93005; 94760; 96365; 96375; J1885; J2550

== ENCOUNTER 2017-11-01 23:18 | Inpatient (IN) | payer OTHER ==
[2017-11-02] MEDS ORDERED: Metoclopramide HCl 10 MG/2 ML VIAL ONE (00:33)
[2017-11-02] MEDS ORDERED: Fentanyl 100 MCG/2 ML VIAL ONE (01:19)
[2017-11-02] MEDS ORDERED: Fentanyl 100 MCG/2 ML VIAL SLOW IVP PRN ×2 (03:42→03:43)
[2017-11-02] MEDS ORDERED: Metoclopramide HCl 10 MG/2 ML VIAL IVP PRN (03:44)
[2017-11-02] MEDS ORDERED: Ondansetron ODT 4 MG TAB SL PRN (03:45)
[2017-11-02] MEDS ORDERED: Acetaminophen 325 MG TAB PO PRN (03:45)
[2017-11-02] MEDS ORDERED: Ondansetron PF 4 MG/2 ML Vial IVP PRN (03:45)
[2017-11-02] MEDS ORDERED: Metoclopramide HCl 10 MG/2 ML VIAL IVP SCH ×2 (04:30→13:45)
[2017-11-02] MEDS: Sodium Chloride 0.9% 1,000 ML IV SCH ×4 (04:40→22:12)
--- NOTE | 2017-11-02 07:52 | ULT ---
GALLBLADDER ULTRASOND: INDICATION: Abdominal pain. FINDINGS: Gallbladder has a normal appearance. No evidence of gallstones identified. The common bile duct is normal caliber at 4-5 mm. Visualized pancreas, liver, and right kidney appear unremarkable as imaged on this study. IMPRESSION: Unremarkable gallbladder ultrasound. POS: MRAY
[2017-11-02] MEDS ORDERED: hydrALAZINE 20 MG/ML VIAL SLOW IVP PRN (13:01)
[2017-11-02] MEDS ORDERED: Acetaminophen 500 MG TAB PO PRN (13:01)
[2017-11-02] MEDS ORDERED: ALPRAZolam 0.5 MG TAB PO PRN (13:01)
[2017-11-02] MEDS ORDERED: cloNIDine 0.1 MG TAB PO PRN (13:01)
[2017-11-02] MEDS ORDERED: Promethazine HCl 25 MG SUPP PR PRN (13:01)
[2017-11-02] MEDS ORDERED: Ondansetron ODT 4 MG TAB PO PRN (13:01)
[2017-11-02] MEDS ORDERED: Lorazepam 2 MG/ML VIAL SLOW IVP PRN (13:01)
[2017-11-02] MEDS ORDERED: Bisacodyl 10 MG SUPP PR PRN (13:01)
[2017-11-02] MEDS: Fentanyl 100 MCG/2 ML VIAL SLOW IVP SCH ×3 (13:36→20:13)
--- NOTE | 2017-11-02 14:21 | HP ---
DATE OF ADMISSION: 11/02/2017 PRIMARY CARE PHYSICIAN: Livia Valle M.D. CHIEF COMPLAINT: Abdominal pain. HISTORY OF PRESENT ILLNESS: This is a 46-year-old female who presents to [facility] in transfer from [facility] where she initially presented with increa sed abdominal pain with associated nausea and vomiting. The patient's history is significant for chr onic pancreatitis with recent admission to [facility] from 10/15/2017 to 10/21 for acute on chronic pancreatitis with abdominal pain. The patient underwent general evaluati on as well as consultation with the GI service without specific etiology identified. The patient wit h a prior history of alcohol use, likely contributing to chronic pancreatitis. The patient underwent CT imaging of the abdomen and pelvis on 10/19/2017, showing no specific acute process. The patient was given general conservative measures and supportive care, eventually discharging home. The patien t states she had a stressful week with her employment, but has been eating a strict diet and taking h er Creon DR with meals. The patient denied any fever, chills, and states her bowel movements have be en regular. The patient states increased abdominal pain in the last 24 hours with associated nausea and vomiting and unable to hold down significant fluid or medications. In the emergency room, the sarai lamas underwent general evaluation including a lipase noted at 111, previously 69 on 10/19/2017. The patient received IV fentanyl, Reglan, and intravenous normal saline x1 liter. The patient was trans ferred to the observation unit for evaluation. PAST MEDICAL HISTORY: 1. 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 2. Anxiety disorder. 3. Coronary artery disease, status post PCI with cardiac stent placement to the right coronary arter y in 2012. 4. Posttraumatic stress disorder. 5. Hyperlipidemia. 6. Remote tobacco use. 7. Chronic obstructive pulmonary disease. PAST SURGICAL HISTORY: 1. Status post endoscopic ultrasound secondary to chronic pancreatitis. 2. Status post right coronary artery stent placement in 2012. 3. Status post cardiac catheterization in 2014 showing minimal coronary artery disease. 4. Status post appendectomy. 5. Status post hysterectomy. CURRENT MEDICATIONS: 1. Tylenol 1000 mg p.o. q.6 hours p.r.n. 2. Xanax XR 1 mg p.o. daily. 3. Xanax 0.5 mg 1 to 2-1/2 tabs p.o. q.24 hours p.r.n. 4. Enteric coated aspirin 81 mg 1 tab p.o. daily. 5. Citalopram 40 mg p.o. daily. 6. Creon DR 36,000 units p.o. t.i.d. with meals. 7. Nitroglycerin 0.4 mg sublingually every 5 minutes p.r.n. chest pain. 8. Phenergan 25 mg p.o. q.4-6 hours p.r.n. 9. Zocor 20 mg p.o. q.a.m. 10. Tramadol 50 mg p.o. q.6 hours p.r.n. 11. Zantac 150 mg p.o. daily. ALLERGIES: AZITHROMYCIN, CODEINE, MORPHINE, CORTISONE, RANOLAZINE. FAMILY HISTORY: Mother and grandfather with coronary artery disease. SOCIAL HISTORY: Resides in [place], [place]. 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 Smoked approximately 30 years, quitting 4 years prior to this evaluation. Remote alco hol use, none currently. No illicit drug use. REVIEW OF SYSTEMS: The following complete review of systems was negative, unless otherwise mentioned in the HPI or below: Constitutional: Weight loss or gain, ability to conduct usual activities. Skin: Rash, itching. Eyes: Double vision, pain. ENT/Mouth: Nose bleeding, neck stiffness, pain, tenderness. Cardiovascular: Palpitations, dyspnea on exertion, orthopnea. Respiratory: Shortness of breath, wheezing, cough, hemoptysis, fever or night sweats. Gastrointestinal: Poor appetite, abdominal pain, heartburn, nausea, vomiting, constipation, or diarrhea. Genitourinary: Urgency, frequency, dysuria, nocturia. Musculoskeletal: Pain, swelling. Neurologic/Psychiatric: Anxiety, depression. Allergy/Immunologic: Skin rash, bleeding tendency. PHYSICAL EXAMINATION: VITAL SIGNS: Currently, blood pressure 96/63, pulse 45, respiratory rate 16, temperature 97.6 degree s Fahrenheit, O2 saturation 94% on room air. GENERAL APPEARANCE: This is a 46-year-old female, alert and oriented x3, pleasant, in no a cute distress. HEENT: Pupils are equal, round, and reactive to light and accommodation. Extraocular muscles are in tact. No scleral icterus, no conjunctival injection. Nares patent. OP is clear. Teeth in fair rep air. NECK: Supple, no cervical adenopathy, no thyromegaly, no carotid bruits, no JVD appreciated. Cervic al spine with full active and passive range of motion. No meningeal signs appreciated. CHEST: Lungs are clear to auscultation bilaterally. CARDIOVASCULAR: S1, S2, without noted murmur, rub or gallop. ABDOMEN: Rounded, soft with minimal tenderness to palpation in the midepigastric region. Bowel soun ds are positive in all four quadrants. No palpable mass. No rebound or guarding noted. EXTREMITIES: Warm and dry with fair turgor. No clubbing, cyanosis or asymmetric edema appreciated. Pulses palpable distally at the dorsalis pedis, posterior tibial, and popliteal arteries bilaterally . Capillary refill less than 2 seconds. NEUROLOGIC: Cranial nerves II-XII are grossly intact. No focal or lateralizing signs appreciated. PERTINENT LABORATORY AND X-RAY FINDINGS: Complete metabolic profile within normal limits. LFTs with in normal limits. Albumin 4.1. Lipid panel from 10/16/2017 showed a total cholesterol 151, triglyce rides 45, HDL 58, LDL 84, lipase 111. Previously noted 69 on 10/19/2017. CBC showed a white blood c ell count of 5.2, hemoglobin 12.5, hematocrit 38, platelet count 270 with normal differential. Abdom inal ultrasound dated 11/02/2017 showed negative findings. ASSESSMENT AND PLAN: 1. Abdominal pain. Questionable etiology in relation to mild pancreatitis. We will continue suppor tive management. Continue intravenous normal saline at 100 mL per hour. See #2 below. 2. Acute on chronic pancreatitis. Lipase mildly elevated currently. Consult GI service for any fur ther recommendations and consideration for ERCP. N.p.o. except water and medications. Pain control with fentanyl 75 mcg IV q.4 hours p.r.n. 3. Nausea and vomiting. Continue intravenous normal saline as outlined previously. Antiemetics wit h Reglan and Phenergan. 4. Anxiety. Continue home regimen of Xanax. 5. Prophylaxis. Sequential compression devices while in bed. Out of bed and ambulatory with ad brittny . 6. Code status is FULL. Surrogate medical decision maker is patient's spouse.
--- NOTE | 2017-11-02 17:14 | CON ---
DATE OF CONSULTATION: 11/02/2017 GI INPATIENT CONSULTATION REQUESTING PHYSICIAN: Greg Sampson D.O. REASON FOR CONSULTATION: Recurrent pancreatitis. HISTORY OF PRESENT ILLNESS: Janet Oakley is a 46-year-old woman, who is known to me from the GI clinic. She was admitted to the hospital last night with recurrent episodes of intractable nausea and vomiting as well as upper abdominal pain radiating to the back. She has a prior history of multiple episodes of pancreatitis characterized by quite mild lipase elevations. She has undergone somewhat extensive workup over the past year and a half for this. Her last colonoscopy in 02/2016 showed only sigmoid diverticulosis and was otherwise normal. She had an EGD in 01/2017 showing only a small hiatal hernia and mild gastritis with gastric biopsy showing reactive gastropathy. She has had a HIDA scan in 03/2017, which was normal. On her most recent admission on 10/19/2017, she had a CT of the abdomen and pelvis, which was essentially normal and showing normal pancreas, and an abdominal ultrasound from earlier today demonstrates normal-appearing gallbladder, normal common bile duct 4-mm, normal-appearing pancreas, liver and right kidney. I sent her for endoscopic ultrasound in late [address] Narendra Oh at [facility]. That report is not available to me, but the patient reports that she was told that she had mild changes of chronic pancreatitis. She has been on pancreatic enzymes 36, 000 units with every meal. She has altered her diet to try to cut out fat in her diet. Despite these measures, she has had recurrent hospitalizations over the past few months. She says for the past few days, she has again been having characteristic symptoms of pain in the epigastrium and right upper quadrant, which radiates through to the back associated by nausea and repeated episodes of nonbloody emesis. On this presentation, lipase was mildly elevated to 111. On her last presentation, lipase was mildly elevated to 120. Looking back, through all these presentations her LFTs have been normal, except for her last presentation, at which time AST and ALT got up into the 100s very transiently. LFTs are currently normal. REVIEW OF SYSTEMS: Full review of systems including constitutional, head, eyes , ears, nose, throat, GI, , cardiovascular, respiratory, musculoskeletal, and neurologic systems is negative except as noted in the HPI. PAST MEDICAL HISTORY: PTSD; anxiety; hyperlipidemia; coronary artery disease, status post stent in 2012; COPD; chronic pancreatitis; appendectomy; hysterectomy; endoscopic ultrasound in late 2016; colonoscopy in 02/2016 showing only sigmoid diverticulosis. ALLERGIES: RANOLAZINE, AZITHROMYCIN, CODEINE, MORPHINE, and CORTISONE. OUTPATIENT MEDICATIONS: Tylenol p.r.n., Xanax XR 1 mg daily, Xanax 0.5 mg p.r.n., enteric-coated aspirin 81 mg daily, citalopram 40 mg daily, Creon DR 36, 000 units p.o. t.i.d. with meals, nitroglycerin p.r.n., Phenergan 25 mg p.r.n., Zocor 20 mg daily, tramadol p.r.n., Zantac 150 mg p.o. daily. FAMILY HISTORY: Mother and grandfather had coronary artery disease. SOCIAL HISTORY: The patient quit smoking about 4 years ago. Alcohol use is remote. She has not had any alcohol since 12/2016 and states that before then she never abused alcohol. No illicit drug use. PHYSICAL EXAMINATION: VITAL SIGNS: Temperature 97.6, pulse 45, blood pressure 96/63, 94% oxygen saturation on room air. GENERAL: A 46-year-old woman lying in bed comfortably, in no acute distress. SKIN: No jaundice, no rash visible or palpable. EYES: No scleral icterus. Extraocular movements intact. ENT: Mucous membranes moist, no oral lesions. LYMPH: No submandibular or supraclavicular lymphadenopathy. THYROID: Nontender to palpation. HEART: Regular rate and rhythm. LUNGS: Clear to auscultation bilaterally. ABDOMEN: Bowel sounds present, soft, tender to palpation in the upper abdomen. No guarding, rebound tenderness. EXTREMITIES: No peripheral edema. VESSELS: Radial pulses 2+ bilaterally. NEUROLOGIC: Cranial nerves II-XII intact bilaterally. No focal deficits. LABORATORY STUDIES: WBC 5.2, hemoglobin 12.5, platelets 270. Sodium 140, potassium 4.1, BUN 16, creatinine 0.75, glucose 108, lipase elevated to 111. LFTs normal with total bilirubin 0.2, alkaline phosphatase 94, AST 29, ALT 52, albumin 4.1. IMAGING STUDIES: Abdominal ultrasound from earlier today shows normal- appearing gallbladder, normal common bile duct 4 mm, normal pancreas and liver, normal right kidney. On 03/2017, HIDA scan was normal. On 10/19/2017, CT scan demonstrated normal pancreas. ASSESSMENT: 1. Upper abdominal pain, recurrent. 2. Nausea and vomiting, intractable, recurrent. 3. History of chronic pancreatitis. PLAN: I had a long discussion with the patient about her clinical course today. She has these recurrent episodes of mild pancreatitis with only slight elevations in lipase, but repeated hospitalizations over the past year. All investigations of the gallbladder including HIDA scan and ultrasound within the past year have been essentially normal, but it is difficult to blame these pancreatitis episodes solely on alcohol. In addition, she did interestingly have a transient bump in her transaminases during her last admission. I wonder if she might have microlithiasis, which is driving these episodes, and if she might benefit from cholecystectomy. Alternatively, she might have some new upper GI mucosal pathology such as gastritis or peptic ulcer disease. At this time, continue conservative supportive care for pancreatitis. We would keep her n.p.o. with IV fluids. We will plan on diagnostic upper endoscopy tomorrow. If the EGD is normal or unrevealing, then I would obtain surgical consultation for consideration of cholecystectomy, despite the normal ultrasound on this admission, and a normal HIDA scan last year. Thank you for the consultation. Please call with questions or concerns. MTDD
[2017-11-02] MEDS: Metoclopramide HCl 10 MG/2 ML VIAL IVP SCH (17:21)
[2017-11-02] MEDS: ALPRAZolam 0.5 MG TAB PO PRN (20:13)
[2017-11-02 21:30] VITALS: BMI 24.4
[2017-11-03] MEDS: Metoclopramide HCl 10 MG/2 ML VIAL IVP SCH ×5 (00:01→23:44)
[2017-11-03] MEDS: Fentanyl 100 MCG/2 ML VIAL SLOW IVP SCH ×6 (01:14→20:27)
[2017-11-03 04:41] LABS: ALT (SGPT) 31 U/L (8-55); AST (SGOT) 19 U/L (5-34); Albumin 3.4 g/dL (3.5-5.0); Alkaline Phosphatase 72 U/L (40-150); Anion Gap 11 mmol/L (10-20); BUN (Urea Nitrogen) 9 mg/dL (7.0-18.7); Bilirubin, Total 0.6 mg/dL (0.2-1.2); Calc. Creatinine Clearance 105 mL/min (70-130); Calcium 8.4 mg/dL (7.8-10.44); Carbon Dioxide 24 mmol/L (22-29); Chloride 108 mmol/L (98-107); Estimated GFR-MDRD Greater than 90; Globulin 2.1 g/dL (2.4-3.5); Glucose 71 mg/dL (70-105); Lipase 56 U/L (8-78); Protein, Total 5.5 g/dL (6.0-8.3); Sodium 139 mmol/L (136-145)
[2017-11-03 04:48] LABS: Eosinophils 5 % (0-10); Hemoglobin 11.2 g/dL (12.0-16.0); Lymphocytes 43 % (21-51); MDiff Complete? YES; Mean Corpuscular HGB CONC 32.8 g/dL (32.0-36.0); Mean Corpuscular Hemoglobin 31.1 pg (27.0-31.0); Mean Corpuscular Volume 94.8 fl (81.0-99.0); Mean Platelet Volume 7.2 fL (7.4-10.4); Monocytes 7 % (0-10); Neutrophil 45 % (42-75); Platelet Count 206 thou/uL (130-400); RBC Distribution Width 12.7 % (11.5-14.5); Red Blood Cell (RBC) Count 3.59 mill/uL (4.20-5.40); White Blood Cell (WBC) Count 4.3 thou/uL (4.8-10.8)
[2017-11-03] MEDS: Sodium Chloride 0.9% 1,000 ML IV SCH ×2 (07:11→19:25)
[2017-11-03] MEDS: Citalopram 20 MG TAB PO SCH (08:33)
[2017-11-03] MEDS ORDERED: ALPRAZOLAM 1 MG PO SCH (09:00)
[2017-11-03] MEDS ORDERED: XANAX 1 MG PO SCH (09:00)
[2017-11-03] MEDS ORDERED: Non-Formulary Item 1 EACH (Citalopram Hydrobromide [Celexa] 40 MG) PO SCH (09:00)
[2017-11-03] MEDS: Ondansetron PF 4 MG/2 ML Vial IVP PRN (09:07)
[2017-11-03] MEDS ORDERED: Methyl Salicylate/Menthol 85 GM TUBE TOP PRN (13:18)
[2017-11-03] MEDS ORDERED: PROPOFOL 200 MG/20 ML VIAL ONE (14:18)
[2017-11-03] MEDS ORDERED: Lidocaine 1% PF 5 ML VIAL ONE (14:18)
[2017-11-03] MEDS ORDERED: Promethazine HCl 25 MG/ML VIAL SLOW IVP PRN (17:13)
[2017-11-03] MEDS ORDERED: Ondansetron HCl/PF 4 MG/2 ML Vial IVP PRN (17:13)
[2017-11-03] MEDS ORDERED: Promethazine HCl 25 MG/ML VIAL IM PRN (17:13)
--- NOTE | 2017-11-03 22:13 | OP ---
DATE OF PROCEDURE: 11/03/2017 PROCEDURE: Esophagogastroduodenoscopy (diagnostic). INDICATION FOR PROCEDURE: Nausea, vomiting, midepigastric abdominal pain. DESCRIPTION OF PROCEDURE: After the risks and benefits of the procedure were explained to the patient including risks of bleeding, infection, perforation, reaction to anesthesia and/or pain. Informed consent was obtained. The patient was then taken to the endoscopy suite where deep sedation was administered via propofol and anesthesia support. After adequate sedation was achieved, the standard gastroscope was introduced into the mouth with intubation of the esophagus, stomach and proximal small intestine with the findings listed below. The patient tolerated the procedure well with no immediate perioperative complications. FINDINGS: Esophagus: Normal appearing mucosa was seen in the proximal, mid and distal esophagus. There was no evidence of erosions, ulcerations, mass lesions or active/recent bleeding. The diaphragmatic pinch was well seen at 38 cm while the GE junction was seen at 36 cm past the incisors denoting a 2 cm hiatal hernia. Stomach: Normal appearing mucosa was seen in the gastric cardia, fundus, body, antrum and incisura. There was no evidence of erosions, ulcerations, mass lesions or active/recent bleeding. Duodenum: Normal appearing mucosa was seen in both the duodenal bulb and second portion of the duodenum. There was no evidence of erosions, ulcerations , mass lesions or active/recent bleeding. IMPRESSION: 1. A 2 cm hiatal hernia. 2. Otherwise, normal upper endoscopy. 3. No etiology for the patient's nausea, vomiting, or midepigastric abdominal pain was seen during this examination today. RECOMMENDATIONS: 1. We would continue aggressive antiemetic therapy for the patient's intractable nausea and vomiting. 2. Pain control per primary team. 3. We would continue with IV fluid administration as you are doing. Considering her increased nausea and vomiting and NPO status. 4. We would consider General Surgery consultation for consideration for cholecystectomy given the negative upper endoscopy today and previously elevated LFTs coupled with nausea and vomiting on prior admission. We will continue to follow. Please call with any questions. EDGAR
[2017-11-03] MEDS: traMADol HCl 50 MG TAB PO PRN (23:44)
[2017-11-03] MEDS: ALPRAZolam 0.5 MG TAB PO PRN (23:44)
[2017-11-04] MEDS: Fentanyl 100 MCG/2 ML VIAL SLOW IVP SCH ×6 (01:44→20:40)
[2017-11-04] MEDS: Sodium Chloride 0.9% 1,000 ML IV SCH ×2 (05:32→17:45)
[2017-11-04] MEDS: Metoclopramide HCl 10 MG/2 ML VIAL IVP SCH ×4 (05:33→23:40)
[2017-11-04] MEDS: Citalopram 20 MG TAB PO SCH (07:07)
[2017-11-04] MEDS: ALPRAZolam 0.5 MG TAB PO PRN (14:52)
--- NOTE | 2017-11-04 14:58 | PRG ---
DATE OF SERVICE: 11/04/2017 SUBJECTIVE: Ms. Oakley says she feels about the same. She continues to have some epigastric pain an d nausea, though no vomiting and she is wanting to eat if possible. She has been having some back sp asms today which she says is new for her, also complaining of tingling in the fingers and toes. OBJECTIVE: VITAL SIGNS: Temperature 97.6, pulse 63, blood pressure 108/74, 95% oxygen saturation on room air. GENERAL: No acute distress. HEART: Regular rate and rhythm. LUNGS: Clear to auscultation bilaterally. ABDOMEN: Bowel sounds present, soft, tender to palpation in the upper abdomen, but no guarding, rebo und tenderness. EXTREMITIES: No peripheral edema. LABORATORY STUDIES: Labs from yesterday, it showed normalization of lipase to 56. Total bilirubin 0 .6, alkaline phosphatase 72, AST 19, ALT 31, BUN 9, creatinine 0.67. IMAGING STUDIES: HIDA scan was performed earlier today, report is pending. EGD was performed yester day. This demonstrated only a 2-cm hiatal hernia, but was otherwise normal. ASSESSMENT AND PLAN: 1. Chronic recurrent upper abdominal pain. 2. Recurrent nausea. 3. Chronic pancreatitis, mild by imaging and biochemical criteria. Awaiting results of HIDA scan. Note the HIDA scan performed last year was normal. We will await shy gical opinion, consideration of possible cholecystectomy. If surgery is not planned, then I have no problem with her advancing her diet this evening.
--- NOTE | 2017-11-04 15:04 | NM ---
HEPATOBILIARY SCAN WITH GALLBLADDER EJECTION FRACTION: Date: 11-04-17 Dose: 4.9 mCi Technetium 99M Choletec, as well as 1.3 micrograms of Kinevac given IV. FINDINGS: Images demonstrate uptake of the radioisotope with concentration seen in the gallbladder. Gallbladder EF measures 41%. Findings suggesting normal gallbladder kinetic. Isotope is seen passing into the sm all bowel. Findings compatible with patency of the common bile duct, common hepatic duct, and cystic duct. IMPRESSION: Normal hepatobiliary scan. POS: JODIE
--- NOTE | 2017-11-04 20:01 | CON ---
DATE OF CONSULTATION: 11/04/2017 CHIEF COMPLAINT: Right upper quadrant pain. HISTORY OF PRESENT ILLNESS: This is a 46-year-old female who has a history of chronic pancreatitis, previous alcohol heavy use who now states that she has not had any alcohol for a year. She is admitt ed for recurrent upper abdominal pain, sharp right upper quadrant, radiates around to the right back, associated with nausea, no vomiting, no fever or chills, night sweats. No change in stools, previou sly treated for chronic constipation. She is more regular now, still has the pain. EGD by Dr. Aguilar within normal limits. Ultrasound and HIDA scan showed no stones, no cholecystitis. Her HIDA scan ej ection fraction is borderline at 41%. She did have reproduction of her symptoms on the HIDA scan. S he notes previous elevation of her liver tests, but she has never been jaundiced before. 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 Former alcohol abuse. PAST SURGICAL HISTORY: Endoscopic ultrasound, cardiac catheterization in 2012 with stent placement, cardiac catheterization in 2014 with minimal disease and appendectomy. MEDICINES: See list. ALLERGIES: RANOLAZINE, AZITHROMYCIN, CODEINE, MORPHINE, CORTISOL, ERYTHROMYCIN. SOCIAL HISTORY: Not currently smoking, no alcohol, no other drugs. REVIEW OF SYSTEMS: Ten system review of systems is otherwise negative unless described above. PHYSICAL EXAMINATION: VITAL SIGNS: Blood pressure is 108/74, pulse 62, respirations 16. She is afebrile. HEENT: Sclerae are anicteric. Oropharynx clear. NECK: No lymphadenopathy. CHEST: Clear. HEART: Regular rate and rhythm. ABDOMEN: Soft, tender right lower quadrant, localized guarding, no rebound, no abdominal inguinal he rnias. EXTREMITIES: No ischemia or edema to extremities. LABORATORY DATA: White cell count is 4, hemoglobin 11, platelet count is 206. Sodium 139, potassium 4.0, creatinine 0.67. Liver tests, lipase normal on this admission. Ultrasound as above. HIDA sca n as above. CT scan on previous admission normal. ASSESSMENT: 1. Right upper quadrant pain, chronic. Symptoms consistent with chronic biliary dyskinesia with bor derline HIDA scan, but reproduction of symptoms. 2. History of chronic pancreatitis and limb elevation of liver function test. 3. History of coronary artery disease, but in 2014, had normal cardiac catheterization. PLAN: Laparoscopic cholecystectomy with intraoperative cholangiogram. Risks, benefits discussed. S he gave consent. She understands that given her borderline normal. Ultrasound and HIDA scan results . Her symptoms may persist after surgery. Risks specific to cholecystectomy were discussed includin g bleeding, infection, scarring, injury to bile duct, cystic duct leak, injury to liver and need for further surgery, revision, need for postop ERCP. She gives consent. We will do this tomorrow.
[2017-11-04] MEDS ORDERED: Cyclobenzaprine 10 MG TAB PO PRN (20:12)
--- NOTE | 2017-11-04 23:42 | PDOC.PN ---
- Subjective Encounter Start Date: 11/03/17 Encounter Start Time: 09:30 Subjective: pt up in bed has mild nausea - Objective Resuscitation Status: Resuscitation Status FULL:Full Resuscitation Vital Signs & Weight: Vital Signs (12 hours) Temp Pulse Resp BP Pulse Ox 11/04/17 20:00 97.5 F L 68 18 95 11/04/17 19:00 97.5 F L 68 18 112/72 95 I&O: 11/03/17 11/04/17 11/05/17 06:59 06:59 06:59 Intake Total 2287 2182 Balance 2287 2182 Result Diagrams: 11/03/17 03:49 11/03/17 03:49 Additional Labs: Accuchecks 11/04/17 15:10 POC Glucose 73 Phys Exam - Physical Examination HEENT: PERRLA, moist MMs, sclera anicteric, TM's clear, oral pharynx no lesions , 2+ tonsils Neck: no nodes, no JVD, supple, full ROM Respiratory: no wheezing, no rales, no rhonchi, wheezing present, clear to auscultation bilateral Cardiovascular: RRR, no significant murmur, no rub, gallop, irregular mild pain on palpation to RUQ Musculoskeletal: no edema, pulses present, edema present Dx/Plan - Plan 1) chronic recurrent abdominal pain 2) possible acute on chronic pancreatitis 3) nausea/vomiting plan: pt is going for egd today, continues to have nausea. lipase normal, ruq ultrasound is normal. * . Review of Systems - Review of Systems Eyes: negative: Pain, Vision Change, Conjunctivae Inflammation, Eyelid Inflammation, Redness, Other ENT: negative: Ear Pain, Ear Discharge, Nose Pain, Nose Discharge, Nose Congestion, Mouth Pain, Mouth Swelling, Throat Pain, Throat Swelling, Other Respiratory: negative: Cough, Dry, Shortness of Breath, Hemoptysis, SOB with Excertion, Pleuritic Pain, Sputum, Wheezing Gastrointestinal: Nausea, Vomiting Genitourinary: negative: Dysuria, Frequency, Incontinence, Hematuria, Retention , Other Musculoskeletal: negative: Neck Pain, Shoulder Pain, Arm Pain, Back Pain, Hand Pain, Leg Pain, Foot Pain, Other - Medications/Allergies Allergies/Adverse Reactions: Allergies Allergy/AdvReac Type Severity Reaction Status Date / Time ranolazine [From Ranexa] Allergy Severe Anaphylaxis Verified 11/02/17 03:55 azithromycin Allergy Intermediate Verified 11/02/17 03:55 codeine Allergy Intermediate Verified 11/02/17 03:55 morphine Allergy Intermediate Hives Verified 11/02/17 03:55 cortisone Allergy Verified 11/02/17 03:55 erythromycin base Allergy Verified 11/02/17 03:55 hydrocodone [From Otto] Allergy Verified 11/02/17 03:55 Iodine and Iodide Containing Allergy Verified 11/02/17 03:55 Produc mirtazapine [From Remeron] Allergy Verified 11/02/17 03:55 prednisone Allergy Verified 11/02/17 03:55 risperidone [From Risperdal] Allergy Verified 11/02/17 03:55 SHRIMP Allergy Severe Uncoded 05/30/15 22:36 Medications: Current Medications Acetaminophen (Tylenol) 1,000 mg PO Q6H PRN PRN Reason: Headache/Fever or Mild Pain Alprazolam (Xanax) 0.5 mg PO Q24H PRN PRN Reason: Anxiety Last Admin: 11/04/17 14:52 Dose: 0.5 mg Aspirin (Aspirin Chewable) 81 mg PO DAILY [facility] Last Admin: 11/04/17 07:07 Dose: Not Given Bisacodyl (Dulcolax) 10 mg DC DAILYPRN PRN PRN Reason: Constipation Citalopram Hydrobromide (Celexa) 40 mg PO DAILY [facility] Last Admin: 11/04/17 07:07 Dose: Not Given Clonidine (Catapres) 0.1 mg PO Q4H PRN PRN Reason: Systolic BP > 180 Cyclobenzaprine HCl (Flexeril) 5 mg PO TID PRN PRN Reason: Muscle Spasm Stop: 11/06/17 20:13 Fentanyl (Sublimaze) 75 mcg SLOW IVP Q4H [facility] Last Admin: 11/04/17 20:40 Dose: 75 mcg Hydralazine HCl (Apresoline) 10 mg SLOW IVP Q4H PRN PRN Reason: Systolic BP > 180 Sodium Chloride (Normal Saline 0.9%) 1,000 mls @ 100 mls/hr IV .Q10H [facility] Last Admin: 11/04/17 17:45 Dose: 1,000 mls Lorazepam (Ativan) 1 mg SLOW IVP Q4H PRN PRN Reason: Anxiety/Agitation Menthol/Methyl Salicylate (Muscle Rub Cream (Bengay)) 0 gm TOP PRN PRN PRN Reason: Muscle Pain Metoclopramide HCl (Reglan) 10 mg IVP Q6HR [facility] Last Admin: 11/04/17 23:40 Dose: 10 mg Ondansetron HCl (Zofran Odt) 8 mg PO Q6H PRN PRN Reason: Nausea/Vomiting Last Admin: 11/02/17 22:55 Dose: 8 mg Ondansetron HCl (Zofran) 8 mg IVP Q6H PRN PRN Reason: Nausea/Vomiting Last Admin: 11/03/17 09:07 Dose: 8 mg [Xanax Xr] 1 Mg 0 each PO DAILY [facility] Promethazine HCl (Phenergan Suppository) 25 mg DC Q4H PRN PRN Reason: Nausea Sodium Chloride (Flush - Normal Saline) 10 ml IVF Q12HR [facility] Last Admin: 11/04/17 20:41 Dose: 10 ml Sodium Chloride (Flush - Normal Saline) 10 ml IVF PRN PRN PRN Reason: Saline Flush Tramadol HCl (Ultram) 50 mg PO Q6H PRN PRN Reason: Severe Pain (7-10) Last Admin: 11/03/17 23:44 Dose: 50 mg
--- NOTE | 2017-11-04 23:49 | PDOC.PN ---
- Subjective Encounter Start Date: 11/04/17 Encounter Start Time: 12:30 Subjective: pt up in bed is hungry and wants to eat - Objective Resuscitation Status: Resuscitation Status FULL:Full Resuscitation Vital Signs & Weight: Vital Signs (12 hours) Temp Pulse Resp BP Pulse Ox 11/04/17 20:00 97.5 F L 68 18 95 11/04/17 19:00 97.5 F L 68 18 112/72 95 I&O: 11/03/17 11/04/17 11/05/17 06:59 06:59 06:59 Intake Total 2287 2182 Balance 2287 2182 Result Diagrams: 11/03/17 03:49 11/03/17 03:49 Additional Labs: Accuchecks 11/04/17 15:10 POC Glucose 73 Phys Exam - Physical Examination HEENT: PERRLA, moist MMs, sclera anicteric, TM's clear, oral pharynx no lesions , 2+ tonsils Neck: no nodes, no JVD, supple, full ROM Respiratory: no wheezing, no rales, no rhonchi, wheezing present, clear to auscultation bilateral Cardiovascular: RRR, no significant murmur, no rub, gallop, irregular Gastrointestinal: soft mild tenderness to RUQ Musculoskeletal: no edema, pulses present, edema present Dx/Plan - Plan 1) chronic recurrent abdominal pain 2) possible acute on chronic pancreatitis 3) nausea/vomiting plan: pt's egd indicated 2cm hiatal hernia. HIDA scan ordered. unclear etiology of pt's nausea and abdominal pain. General surgery consulted. * . Review of Systems - Review of Systems Eyes: negative: Pain, Vision Change, Conjunctivae Inflammation, Eyelid Inflammation, Redness, Other ENT: negative: Ear Pain, Ear Discharge, Nose Pain, Nose Discharge, Nose Congestion, Mouth Pain, Mouth Swelling, Throat Pain, Throat Swelling, Other Respiratory: negative: Cough, Dry, Shortness of Breath, Hemoptysis, SOB with Excertion, Pleuritic Pain, Sputum, Wheezing Gastrointestinal: Nausea, Abdominal Pain Genitourinary: negative: Dysuria, Frequency, Incontinence, Hematuria, Retention , Other Musculoskeletal: negative: Neck Pain, Shoulder Pain, Arm Pain, Back Pain, Hand Pain, Leg Pain, Foot Pain, Other - Medications/Allergies Allergies/Adverse Reactions: Allergies Allergy/AdvReac Type Severity Reaction Status Date / Time ranolazine [From Ranexa] Allergy Severe Anaphylaxis Verified 11/02/17 03:55 azithromycin Allergy Intermediate Verified 11/02/17 03:55 codeine Allergy Intermediate Verified 11/02/17 03:55 morphine Allergy Intermediate Hives Verified 11/02/17 03:55 cortisone Allergy Verified 11/02/17 03:55 erythromycin base Allergy Verified 11/02/17 03:55 hydrocodone [From Elfrida] Allergy Verified 11/02/17 03:55 Iodine and Iodide Containing Allergy Verified 11/02/17 03:55 Produc mirtazapine [From Remeron] Allergy Verified 11/02/17 03:55 prednisone Allergy Verified 11/02/17 03:55 risperidone [From Risperdal] Allergy Verified 11/02/17 03:55 SHRIMP Allergy Severe Uncoded 05/30/15 22:36 Medications: Current Medications Acetaminophen (Tylenol) 1,000 mg PO Q6H PRN PRN Reason: Headache/Fever or Mild Pain Alprazolam (Xanax) 0.5 mg PO Q24H PRN PRN Reason: Anxiety Last Admin: 11/04/17 14:52 Dose: 0.5 mg Aspirin (Aspirin Chewable) 81 mg PO DAILY [facility] Last Admin: 11/04/17 07:07 Dose: Not Given Bisacodyl (Dulcolax) 10 mg OR DAILYPRN PRN PRN Reason: Constipation Citalopram Hydrobromide (Celexa) 40 mg PO DAILY [facility] Last Admin: 11/04/17 07:07 Dose: Not Given Clonidine (Catapres) 0.1 mg PO Q4H PRN PRN Reason: Systolic BP > 180 Cyclobenzaprine HCl (Flexeril) 5 mg PO TID PRN PRN Reason: Muscle Spasm Stop: 11/06/17 20:13 Fentanyl (Sublimaze) 75 mcg SLOW IVP Q4H [facility] Last Admin: 11/04/17 20:40 Dose: 75 mcg Hydralazine HCl (Apresoline) 10 mg SLOW IVP Q4H PRN PRN Reason: Systolic BP > 180 Sodium Chloride (Normal Saline 0.9%) 1,000 mls @ 100 mls/hr IV .Q10H [facility] Last Admin: 11/04/17 17:45 Dose: 1,000 mls Lorazepam (Ativan) 1 mg SLOW IVP Q4H PRN PRN Reason: Anxiety/Agitation Menthol/Methyl Salicylate (Muscle Rub Cream (Bengay)) 0 gm TOP PRN PRN PRN Reason: Muscle Pain Metoclopramide HCl (Reglan) 10 mg IVP Q6HR [facility] Last Admin: 11/04/17 23:40 Dose: 10 mg Ondansetron HCl (Zofran Odt) 8 mg PO Q6H PRN PRN Reason: Nausea/Vomiting Last Admin: 11/02/17 22:55 Dose: 8 mg Ondansetron HCl (Zofran) 8 mg IVP Q6H PRN PRN Reason: Nausea/Vomiting Last Admin: 11/03/17 09:07 Dose: 8 mg [Xanax Xr] 1 Mg 0 each PO DAILY [facility] Promethazine HCl (Phenergan Suppository) 25 mg OR Q4H PRN PRN Reason: Nausea Sodium Chloride (Flush - Normal Saline) 10 ml IVF Q12HR [facility] Last Admin: 11/04/17 20:41 Dose: 10 ml Sodium Chloride (Flush - Normal Saline) 10 ml IVF PRN PRN PRN Reason: Saline Flush Tramadol HCl (Ultram) 50 mg PO Q6H PRN PRN Reason: Severe Pain (7-10) Last Admin: 11/03/17 23:44 Dose: 50 mg
[2017-11-05] MEDS: Fentanyl 100 MCG/2 ML VIAL SLOW IVP SCH ×4 (01:35→13:16)
[2017-11-05] MEDS: Sodium Chloride 0.9% 1,000 ML IV SCH ×3 (01:59→13:24)
[2017-11-05] MEDS: Metoclopramide HCl 10 MG/2 ML VIAL IVP SCH ×2 (05:50→13:13)
[2017-11-05] MEDS: Ondansetron PF 4 MG/2 ML Vial IVP PRN (07:25)
[2017-11-05] MEDS: ALPRAZolam 0.5 MG TAB PO PRN (08:52)
[2017-11-05] MEDS ORDERED: Lidocaine 1% PF 5 ML VIAL ONE (09:41)
[2017-11-05] MEDS ORDERED: Glycopyrrolate 0.2 MG/ML 5 ML SYRINGE ONE (09:41)
[2017-11-05] MEDS ORDERED: PROPOFOL 200 MG/20 ML VIAL ONE (09:41)
[2017-11-05] MEDS ORDERED: Ondansetron PF 4 MG/2 ML Vial ONE ×2 (09:41→09:48)
[2017-11-05] MEDS ORDERED: Fentanyl 100 MCG/2 ML VIAL ONE ×3 (09:48→11:57)
[2017-11-05] MEDS ORDERED: Midazolam HCl 2 mg/2 ml Vial ONE (09:48)
[2017-11-05] MEDS ORDERED: cefOXitin 2 GM VIAL ONE (09:59)
[2017-11-05] MEDS ORDERED: Sodium Chloride 0.9% 100 ML ONE (09:59)
[2017-11-05] MEDS ORDERED: Iothalamate Meglumine 60% 50 ML VIAL FS ONE (10:00)
[2017-11-05] MEDS ORDERED: Bupivacaine/Epinephrine 0.25% 30 ML VIAL ONE (10:00)
[2017-11-05] MEDS ORDERED: Promethazine HCl 25 MG/ML VIAL SLOW IVP PRN (10:56)
[2017-11-05] MEDS ORDERED: Ondansetron HCl/PF 4 MG/2 ML Vial IVP PRN (10:56)
[2017-11-05] MEDS ORDERED: Promethazine HCl 25 MG/ML VIAL IM PRN (10:56)
[2017-11-05] MEDS ORDERED: Promethazine HCl 25 MG/ML VIAL ONE (11:16)
[2017-11-05] MEDS ORDERED: traMADol HCl 50 MG TAB PO PRN (11:48)
--- NOTE | 2017-11-05 13:03 | RAD ---
INTRAOPERATIVE CHOLANGIOGRAM: HISTORY: Laparoscopic cholecystectomy. TECHNIQUE: Two radiographs of the right upper quadrant of the abdomen were obtained. FINDINGS: Two intraoperative radiographs obtained of the right upper quadrant of the abdomen. Images demonstra te catheterization and injection of the cystic duct. Contrast is seen flowing into the common bile d uct and into the duodenum. No evidence of residual stones or strictures seen. IMPRESSION: Successful intraoperative cholangiogram. POS: JODIE
[2017-11-05] MEDS: Citalopram 20 MG TAB PO SCH (13:23)
--- NOTE | 2017-11-05 15:39 | OP ---
DATE OF PROCEDURE: 11/05/2017. PREOPERATIVE DIAGNOSIS: Chronic cholecystitis. POSTOPERATIVE DIAGNOSIS: Chronic cholecystitis. PROCEDURE: Laparoscopic cholecystectomy with cholangiogram. SURGEON: Eliazar Holguin M.D. ANESTHESIA: General ESTIMATED BLOOD LOSS: Minimal. COMPLICATIONS: None. SPECIMEN: Gallbladder. FINDINGS: Chronic cholecystitis. PROCEDURE IN DETAIL: The patient was taken to the operating room and placed supine on the table. Af ter general anesthetic was obtained, the abdomen was prepped and draped in a sterile fashion. Curved incision was made below the umbilicus. Cautery was used to dissect down to and score the fascia. Abdominal cavity entered bluntly using a Zoë clamp. Holding stitch of PDS placed on each side of t he fascia. Emily trocar was placed. High-flow pneumoperitoneum was obtained. An upper midline 5-m m port and two right upper quadrant 5-mm ports were placed under direct visualization. The gallbladd er was retracted from the gallbladder fossa. Peritoneum was opened anteriorly and posteriorly. The critical view triangle was seen showing only the cystic duct and cystic artery branching from medial to lateral. There were no other branching structures. A clip was placed high on the cystic duct. A small ductotomy was made just proximal to that. A cholangiocatheter was brought in through a separa te stab incision and placed into the cystic duct and a cholangiogram was performed, which shows good contrast flow into the duodenum, right and left hepatic duct system without obstruction. Cholangioca theter was removed. Two clips were placed proximal on the cystic duct and one distally, and cut usin g laparoscopic scissors. Cystic artery was taken in the same way. Cautery was used to dissect the g allbladder out of the gallbladder fossa. The gallbladder was placed in an Endo catch bag and brought out through the Emily. All port sites were infiltrated using local anesthetic. All ports are doretha markell under direct visualization without bleeding. Pneumoperitoneum was let down. PDS was used to mirela se the fascial defect below the umbilicus. All incisions were irrigated and closed using 4-0 Monocry l and Dermabond. The patient went to recovery in stable condition. All instrument counts, needle co unts, lap counts were correct.
[2017-11-05] MEDS ORDERED: Promethazine HCl 12.5 MG in Sodium Chloride 0.9% 50 ML IVPB SCH (16:00)
[2017-11-05] MEDS: traMADol HCl 50 MG TAB PO PRN (16:30)
[2017-11-05 17:15] VITALS: BP 135/85; TEMP 98
--- NOTE | 2017-11-06 13:28 | DIS ---
DATE OF ADMISSION: 11/02/2017 DATE OF DISCHARGE: 11/05/2017 DISCHARGE DIAGNOSES: 1. Chronic recurrent abdominal pain. 2. Possible acute on chronic bronchitis. 3. Nausea, vomiting. HOSPITAL COURSE: The patient is a 46-year-old female who initially presented to the hospital with co mplaints of severe abdominal pain, nausea and vomiting. The patient was seen by GI and underwent an EGD which indicated a 2 cm hiatal hernia, otherwise normal upper endoscopy. No etiology of the patie nt's nausea and vomiting. At this time, Surgery was consulted and a HIDA scan was ordered for this p atient. HIDA scan indicated it was a normal hepatobiliary scan with an EF of 41%. However, given th e patient's significant nausea, vomiting, and right upper quadrant pain she underwent a cholecystecto my on 11/05/2017. The patient after the procedure did tolerate oral food and was discharged home and will follow up with her PCP and a surgeon as an outpatient. DISCHARGE MEDICATIONS:. She is going to take the pancreatic lipase 36,000 one capsule t.i.d., citalo pram 40 mg daily, aspirin 81 mg daily, Xanax 1-2.5 mg 24 hours p.r.n., Tramadol 50 mg q.6h. p.r.n., Zantac 150 mg p.o. daily, Zocor 20 mg daily, nitroglycerin 0.4 sublingual every 5 minutes and Phenerg an 25 mg p.o. q.4h. p.r.n. PHYSICAL EXAMINATION: VITAL SIGNS: Temperature 98.4, 71, 18, 96%, 135/85. GENERAL: She is awake, alert, oriented. She does not appear in distress. CARDIOVASCULAR: S1, S2 present. No murmurs, rubs or gallops. ABDOMEN: Soft, nontender. Laparoscopic x5 spots seen, intact. Bowel sounds are present x2. EXTREMITIES: No edema present to lower extremity. The patient again will be discharged home. Follow up with PCP.
--- NOTE | 2017-11-17 08:51 | PQF ---
CHIDI BRODYLIS HALEY [id number] CLINICAL DOCUMENTATION CLARIFICATION FORM: POST DISCHARGE Addendum to original discharge summary date: 11/09/2017 DATE: 11/17/2017 ATTN: Dr. Posey Please exercise your independent, professional judgment in responding to the clarification form. Clinical indicators are provided on the bottom of this form for your review Please check appropriate box(s): Conflicting documentation was noted in the Medical Record, please clarify if patient is being treated/monitored for: [ ] Possible acute on chronic bronchitis [ ] Possible acute on chronic pancreatitis [ ] Other diagnosis (please specify) [x ] Unable to determine In addition, please specify: Present on Admission (POA): [ ] Yes [ ] No [ x] Unable to determine For continuity of documentation, please document condition throughout progress notes and discharge summary. Thank You. CLINICAL INDICATORS - SIGNS / SYMPTOMS/ LABS Per Discharge Summary: Possible acute on chronic bronchitis. Per Hospitalist Progress Notes: Possible acute on chronic pancreatitis. RSK FACTORS (per 11/04 consultation) History of chronic pancreatitis. Chronic right upper quadrant pain. Symptoms consistent with chronic biliary dyskinesia with borderline HIDA scan but reporduction of symptoms. TREATMENT Per 11/02 consultation note: NPO with IV Fluids. Per 11/05 operative report: Laparoscopic cholecystectomy with cholangiogram. (This form is maintained as a part of the permanent medical record) 2014 [employer]. All Rights Reserved Ansley [email or web address] [phone] MTDD
== END 2017-11-05 17:18 | disposition home or self-care (01) | DRG 417 ==
LOC: ERS 23:18 → OBSVTOIN 11-02 02:15 → T4-A 11-02 02:15
PROVIDERS: ADMIT Internal Medicine; ATTEND Internal Medicine
PROC: 0DJ08ZZ Inspection of Upper Intestinal Tract, Via Natural or Artificial Opening Endoscopic (ICD-10-PCS; 2017-11-03)
PROC: 0FT44ZZ Resection of Gallbladder, Percutaneous Endoscopic Approach (ICD-10-PCS; principal; 2017-11-05)
PROC: BF101ZZ Fluoroscopy of Bile Ducts using Low Osmolar Contrast (ICD-10-PCS; 2017-11-05)
DX: K81.1 Chronic cholecystitis (principal); K85.90 Acute pancreatitis without necrosis or infection, unspecified; K86.1 Other chronic pancreatitis; F43.10 Post-traumatic stress disorder, unspecified; F41.9 Anxiety disorder, unspecified; K44.9 Diaphragmatic hernia without obstruction or gangrene; E78.5 Hyperlipidemia, unspecified; J44.9 Chronic obstructive pulmonary disease, unspecified; I25.10 Atherosclerotic heart disease of native coronary artery without angina pectoris; Z87.891 Personal history of nicotine dependence; Z88.1 Allergy status to other antibiotic agents; Z88.5 Allergy status to narcotic agent; Z91.013 Allergy to seafood; Z88.8 Allergy status to other drugs, medicaments and biological substances; Z79.82 Long term (current) use of aspirin; Z79.899 Other long term (current) drug therapy; Z95.5 Presence of coronary angioplasty implant and graft
CPT/HCPCS: 36415; 36416; 47532; 76705; 78227; 80053; 83690; 85007; 85027; 88304; 96361; 96374; 96375; A9537; J0694; J2001; J2250; J2405; J2550; J2704; J2765; J3010; J7050; Q0162; Q9961

== ENCOUNTER 2018-01-15 17:30 | Inpatient (IN) | payer OTHER ==
[~2018-01-15 17:30] MED LIST: ISOVUE-370 76%-LOCM 1 ML ONE
[2018-01-15 19:10] LABS: Bilirubin Negative (Negative); Blood, Urine Moderate (Negative); Clarity CLEAR (Clear); Glucose, Urine (Dipstick) Negative (Negative); Leukocyte Negative (Negative); Nitrite Negative (Negative); Protein, Urine (Dipstick) Negative (Neg-Trace); Specific Gravity, Urine 1.005 (1.002-1.036); Urobilinogen 0.2 mg/dL (0.2-1.0)
[2018-01-15 19:16] LABS: Hemoglobin 12.7 g/dL (12.0-16.0); Mean Corpuscular HGB CONC 33.9 g/dL (32.0-36.0); Mean Corpuscular Hemoglobin 31.6 pg (27.0-31.0); Mean Corpuscular Volume 93.1 fL (78.0-98.0); Mean Platelet Volume 7.2 fL (7.4-10.4); Platelet Count 278 thou/uL (130-400); RBC Distribution Width 12.9 % (11.5-14.5); Red Blood Cell (RBC) Count 4.01 mill/uL (4.20-5.40); White Blood Cell (WBC) Count 10.6 thou/uL (4.8-10.8)
[2018-01-15 19:20] LABS: Bacteria/HPF None Seen HPF (None Seen); Hyaline Casts/LPF 0-3 HYALINE CAST LPF (0-3 Hyaline); Squamous Epithelial None Seen HPF (0-3); WBC/HPF 0-3 HPF (0-3)
[2018-01-15 19:34] LABS: Band 2 % (5-11); Eosinophils 1 % (0-10); Lymphocytes 12 % (21-51); MDiff Complete? YES; Monocytes 5 % (0-10); Neutrophil 76 % (42-75); PLT Morphology Comment Appears Adequate; RBC Morphology Normal; Reactive Lymphocytes 3 % (0-10)
[2018-01-15 19:36] LABS: ALT (SGPT) 122 U/L (8-55); AST (SGOT) 57 U/L (5-34); Albumin 4.4 g/dL (3.5-5.0); Alkaline Phosphatase 129 U/L (40-150); Anion Gap 16 mmol/L (10-20); BUN (Urea Nitrogen) 5 mg/dL (7.0-18.7); Bilirubin, Total 0.7 mg/dL (0.2-1.2); Calc. Creatinine Clearance 0 mL/min (70-130); Calcium 9.8 mg/dL (7.8-10.44); Carbon Dioxide 21 mmol/L (22-29); Chloride 103 mmol/L (98-107); Estimated GFR-MDRD 78; Globulin 3.2 g/dL (2.4-3.5); Glucose 105 mg/dL (70-105); Lipase 29 U/L (8-78); Potassium 3.8 mmol/L (3.5-5.1); Protein, Total 7.6 g/dL (6.0-8.3); Sodium 136 mmol/L (136-145)
[2018-01-15 21:45] LABS: MONO NEGATIVE CONTROL ZONE White (Negative) (White); MONO POSITIVE CONTROL Pink Line (Positive) (PINK/RED); Mononucleosis NEGATIVE (NEGATIVE)
[2018-01-15 21:47] LABS: HBCM Index 0.06 S/CO (0-0.79); HBSAg Index 0.18 S/CO (0-0.99); Hep A IgM AB Non-Reactive (NonReactive); Hep A IgM S/CO 0.14 S/CO (0-0.79); Hep B Surf Ag Non-Reactive S/CO (NonReactive); Hep C IgG Ab Non-Reactive (NonReactive); Hep C Index 0.21 S/CO (0-0.79); Hepatitis B Core IGM Abs Non-Reactive (NonReactive)
[2018-01-15] MEDS ORDERED: diphenhydrAMINE 50 MG/ML VIAL ONE (22:07)
[2018-01-15] MEDS ORDERED: Promethazine HCl 25 MG/ML VIAL ONE (22:07)
[2018-01-15] MEDS ORDERED: Ketorolac Tromethamine 30 MG/ML VIAL ONE (22:07)
[2018-01-15] MEDS ORDERED: Famotidine 20 MG TAB ONE (22:07)
[2018-01-15] MEDS ORDERED: Morphine 10 MG/ML VIAL ONE (23:16)
--- NOTE | 2018-01-16 | CT ---
CT OF ABDOMEN AND PELVIS PERFORMED WITH CONTRAST ENHANCEMENT: 01/15/18 HISTORY: Abdominal pain, history of chronic pancreatitis. Lung bases show some interstitial change in the left base probably related to scar. The liver, spleen, and pancreas regions appear unremarkable. The gallbladder has been removed. Right and left adrenal glands are normal in size. Right and left kidneys are normal in size and not o bstructed. No significant periaortic or mesenteric adenopathy. The right colon is very redundant. On the previous examination, the cecum was very low lying within t he pelvis. On this examination, the cecum is actually directed superiorly and anteriorly where the ce cum actually lies directly beneath the umbilicus. I do not see any definite twisting of the vessels, although there is some narrowing to the cecum just at or near the ileocecal valve region. I do not se e any bowel wall thickening or evidence for pneumatosis. CT OF PELVIS PERFORMED WITH CONTRAST ENHANCEMENT: No adenopathy, mass or free fluid. IMPRESSION: Floppy cecum. On today's examination, the cecum is directed superiorly and anteriorly and is fluid fi lled and distended. The cecal diameter is approximately 4.1 cm. I do not see any bowel wall thickenin g. There does appear to be a mild transition zone where there is narrowing to the cecum just distal t o its fluid filled component approximately at the level of the ileocecal valve. I do not see any twit adriano of the vessels to definitely suggest torsion but the possibility of torsion with a floppy cecum would be a possibility. I do not see any signs of wall thickening or pneumatosis or any pericolonic inflammatory change at this time. POS: JODIE
[2018-01-16] MEDS ORDERED: Midazolam HCl 2 mg/2 ml Vial ONE ×2 (01:26→11:00)
[2018-01-16] MEDS ORDERED: Piperacillin/Tazobactam 4.5 GM VIAL ONE (01:26)
[2018-01-16] MEDS ORDERED: Lorazepam 2 MG/ML VIAL ONE (02:18)
[2018-01-16] MEDS ORDERED: Sodium Chloride 0.45% 1,000 ML IV SCH (03:20)
[2018-01-16] MEDS ORDERED: Ondansetron ODT 4 MG TAB SL PRN (03:20)
[2018-01-16] MEDS ORDERED: Ondansetron HCl/PF 4 MG/2 ML Vial IVP PRN (03:20)
[2018-01-16] MEDS ORDERED: Fentanyl 100 MCG/2 ML VIAL SLOW IVP PRN ×2 (03:22→07:45)
[2018-01-16 03:52] VITALS: BMI 23.7
[2018-01-16] MEDS ORDERED: Promethazine HCl 25 MG/ML VIAL IM/IV PRN (07:45)
[2018-01-16 08:42] LABS: ALT (SGPT) 88 U/L (8-55); AST (SGOT) 34 U/L (5-34); Alkaline Phosphatase 114 U/L (40-150); Anion Gap 13 mmol/L (10-20); BUN (Urea Nitrogen) 5 mg/dL (7.0-18.7); Bilirubin, Total 1.1 mg/dL (0.2-1.2); Calc. Creatinine Clearance 93 mL/min (70-130); Calcium 9.3 mg/dL (7.8-10.44); Carbon Dioxide 23 mmol/L (22-29); Chloride 109 mmol/L (98-107); Estimated GFR-MDRD 82; Globulin 2.6 g/dL (2.4-3.5); Glucose 90 mg/dL (70-105); Lipase 22 U/L (8-78); Potassium 3.8 mmol/L (3.5-5.1); Protein, Total 6.6 g/dL (6.0-8.3); Sodium 141 mmol/L (136-145)
[2018-01-16] MEDS ORDERED: ALPRAZolam 1 MG TAB PO SCH (08:45)
[2018-01-16 08:46] LABS: #Eosinphils 0.2 thou/uL (0.0-0.7); #Lymphocytes 1.5 thou/uL (1.20-3.40); #Monocytes 0.6 thou/uL (0.11-0.59); #Neutrophils 3.2 thou/uL (1.40-6.50); %Basophils 0.3 % (0.0-1.0); %Eosinophils 2.7 % (0.0-10.0); %Monocytes 11.5 % (0.0-10.0); %Neutrophils 58.4 % (42.0-75.0); Hemoglobin 12.2 g/dL (12.0-16.0); Mean Corpuscular HGB CONC 33.8 g/dL (32.0-36.0); Mean Corpuscular Volume 94.6 fL (78.0-98.0); Mean Platelet Volume 7.1 fL (7.4-10.4); Platelet Count 241 thou/uL (130-400); RBC Distribution Width 12.8 % (11.5-14.5); Red Blood Cell (RBC) Count 3.82 mill/uL (4.20-5.40); White Blood Cell (WBC) Count 5.5 thou/uL (4.8-10.8)
--- NOTE | 2018-01-16 09:07 | HP ---
HISTORY OF PRESENT ILLNESS: Ms. Oakley is a 47-year-old woman with chronic intermittent abdominal pa in for the past 3-4 years. She states that the most recent episode started on Thursday and she has not eaten or drunk anything since it started, because of nausea. She has felt like she needed to thr ow up, but has not been able to. The pain is diffuse, but she is more tender on the right side. She has undergone a fairly extensive workup for her pain in the past. She had some pancreatitis and und erwent a cholecystectomy in October. She has had upper and lower endoscopy within the past year and a donald lf. She has also undergone a cardiac workup with a stress test in May, which was normal and an echocardiogram recently which showed an ejection fraction of 50%-55%. She does have a history of cor onary artery disease status post PR and stenting that has been following up with Dr. Mchugh and doing well from a cardiac standpoint. She cannot recall any aggravating or alleviating factors for her pain . She has been running low grade fevers on and off up to 101 since the pain began. Since coming to the hospital, she is more comfortable. She did receive some pain medication in the ER. PAST MEDICAL HISTORY: Coronary artery disease status post PR and PTCA, chronic pancreatitis, history of alcohol abuse, anxiety, PTSD, hyperlipidemia, history of tobacco abuse. PAST SURGICAL HISTORY: PTCA in 2012, appendectomy, hysterectomy, laparoscopic cholecystectomy, and u pper and lower endoscopies. SOCIAL HISTORY: She no longer smokes or drinks. She does not use any illicit drugs. MEDICATIONS: Outpatient medications include alprazolam 2.5 mg p.o. q.24 hours and alprazolam extende d release 1 mg p.o. daily, 81 mg of aspirin daily, Celexa 40 mg p.o. daily, Bentyl 20 mg p.o. b.i.d., sublingual nitroglycerin p.r.n., Protonix 40 mg p.o. b.i.d., Phenergan p.r.n., simvastatin 20 mg p.o . daily, tramadol p.r.n., Zantac 150 mg p.o. daily. She received Zosyn, pain medication and Phenerga n in the emergency room. ALLERGIES: She has multiple allergies including AZITHROMYCIN, CODEINE, and MORPHINE, which cause billy h and itching. She has tolerated morphine with Benadryl in the past. CORTISONE, ERYTHROMYCIN, IODIN E, MIRTAZAPINE, RANEXA, RANOLAZINE, RISPERDAL, SHRIMP, ZITHROMAX causes vomiting and ZOFRAN. She als o has had rash and itching with HYDROCODONE in the past. FAMILY HISTORY: Lung cancer, non-Hodgkin's lymphoma and heart disease. REVIEW OF SYSTEMS: Ten system review of systems is negative except per HPI. LABORATORY DATA AND IMAGING: White count was normal at 10.6. She did have a left shift of 76% neutr ophils. Electrolytes were unremarkable. AST and ALT were mildly elevated at 57 and 122. Lipase nor mal at 29. Abdominal x-ray and CT of the abdomen were obtained in the emergency room. Plain film wa s unremarkable, but shows appropriate positioning of her NG tube. CT showed possible cecal volvulus without twisting of the cecal cap or significant small-bowel obstruction and the cecum which was prev iously down in the pelvis is now folded up toward the umbilicus and somewhat distended with fluid. T here is no bowel wall thickening. PHYSICAL EXAMINATION: VITAL SIGNS: The patient has been afebrile since her admission. Heart rate 74, respirations 18, 97% saturated on room air, blood pressure 113/69. GENERAL: Reveals a unhealthy appearing woman in no acute distress. She was sleeping soundly on my a rrival and is able to move the bed without evident discomfort. HEENT: Unremarkable. NECK: Supple, without lymphadenopathy or thyroid nodules. HEART: Regular in its rate and rhythm. I do not appreciate any murmurs, rubs, or gallops. LUNGS: Clear to auscultation bilaterally. ABDOMEN: Soft and nondistended. Bowel sounds are somewhat diminished. She is not tympanitic. She is diffusely mildly tender, more on the right than the left, but does not exhibit any rigidity, rebou nd or guarding. No palpable masses or hernias. EXTREMITIES: Warm and well perfused without edema. NEUROLOGIC: No focal deficits. PSYCHIATRIC: Alert, oriented, and appropriate. 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 This could be the cause o f her intermittent abdominal pain if it has been happening intermittently and then resolving spontane ously. In any case, given the redundancy and mobility of her cecal cap, this problem is likely to re cur without surgical management. I have recommended ileocecectomy or possible right colectomy as the right colon is not appropriately fixed; however, it does appear that it is just the cecal cap which is mobile. She has had a recent colonoscopy and I do not think she would tolerate a bowel prep, so bella hernandez will proceed emergently with this surgery today. She has been added onto the schedule. We will co amita Castro perioperatively. We will attempt to perform the operation laparoscopic with hand assist , but open surgery may be necessary based on the appearance of the cecum. The inherent risks of surg kiara include but are not limited to bleeding, infection, risks of anesthesia, damage to nearby structu re including intestine and ureter and blood vessels, anastomotic leak requiring return to OR and dive rsion and need for other procedures. The patient understands and accepts these risks and wishes to p roceed. All of her questions were answered.
[2018-01-16] MEDS: Pantoprazole 40 MG VIAL IVP SCH (09:26)
[2018-01-16] MEDS: D5 1/2 NS w/20 mEq KCL 1,000 ML IV SCH ×3 (09:28→20:51)
--- NOTE | 2018-01-16 10:01 | RAD ---
ABDOMEN ONE VIEW: HISTORY: A 47-year-old female with a history of small bowel obstruction. FINDINGS: NG tube is in place. there is gas and fecal material in the colon. The one previously focally dilat ed loop of small bowel is again noted, without significant change. Minimal gas in nondilated small b owel. IMPRESSION: Nonspecific abdomen. Nasogastric tube in place. No new process. POS: MARY
[2018-01-16] MEDS ORDERED: Bupivacaine HCl 0.5%/Epinephrine 1:200,000/PF 30 ml Vial ONE (11:04)
[2018-01-16] MEDS ORDERED: HYDROmorphone 0.5 MG/0.5 ML SYRINGE ONE (11:09)
[2018-01-16] MEDS ORDERED: Fentanyl 100 MCG/2 ML VIAL ONE (11:09)
[2018-01-16] MEDS ORDERED: PROPOFOL 200 MG/20 ML VIAL ONE (13:55)
[2018-01-16] MEDS ORDERED: ePHEDrine/0.9% NaCl/PF SYRINGE 50 mg/10 ml ONE (13:55)
[2018-01-16] MEDS ORDERED: Ketorolac Tromethamine 30 MG/ML VIAL ONE (13:55)
[2018-01-16] MEDS ORDERED: Lidocaine 1% PF 5 ML VIAL ONE (13:55)
[2018-01-16] MEDS ORDERED: Succinylcholine Chloride 20 MG/ML 10 ml SYRINGE FS ONE (13:55)
[2018-01-16] MEDS ORDERED: Dexamethasone 20 MG/5 ML VIAL ONE (13:55)
[2018-01-16] MEDS ORDERED: HYDROmorphone 2 MG/ML VIAL SLOW IVP PRN (14:11)
[2018-01-16] MEDS ORDERED: diphenhydrAMINE 50 MG/ML VIAL IM PRN (14:11)
[2018-01-16] MEDS ORDERED: Naloxone HCl 0.4 mg/ml Vial IV PRN (14:11)
[2018-01-16] MEDS ORDERED: diphenhydrAMINE 25 MG CAP PO PRN (14:11)
[2018-01-16] MEDS ORDERED: Promethazine HCl 25 MG/ML VIAL SLOW IVP PRN (14:11)
[2018-01-16] MEDS ORDERED: Promethazine HCl 25 MG/ML VIAL IM PRN (14:11)
[2018-01-16] MEDS ORDERED: Zolpidem Tartrate 5 MG TAB PO PRN (14:11)
[2018-01-16] MEDS ORDERED: diphenhydrAMINE 50 MG/ML VIAL IVP PRN (14:11)
[2018-01-16] MEDS ORDERED: Communication Order-Pharmacy FS SCH (14:15)
[2018-01-16] MEDS ORDERED: Promethazine HCl 25 MG/ML VIAL ONE (15:36)
[2018-01-16] MEDS: Piperacillin/Tazobactam 3.375 GM in Sodium Chloride 0.9% 100 ML IVPB SCH ×3 (17:03→23:22)
--- NOTE | 2018-01-16 18:17 | RAD ---
TWO VIEWS OF THE ABDOMEN: 01/16/18 HISTORY: Abdominal pain, small bowel obstruction, possible cecal volvulus. Bowel obstruction. Followup evaluat ion. COMPARISON: 01/16/18 at 0154 hours. FINDINGS: The visualized lung bases are clear. Bowel gas pattern is nonspecific. Surgical clips overlie the rig ht upper quadrant. Nasogastric tube has been removed. Calcification overlies the right hemipelvis. IMPRESSION: 1. Nonspecific bowel gas pattern. 2. Interval removal of the nasogastric tube. POS: MARSHALL
[2018-01-16] MEDS: HYDROmorphone 10 mg/100 ml CADD IVPB PRN (18:27)
[2018-01-16] MEDS: Promethazine HCl 25 MG/ML VIAL IM PRN (18:49)
--- NOTE | 2018-01-16 20:39 | PDOC.OP ---
Operative Note - Operative Note Operative Note: PROCEDURE: Laparoscopic hand-assisted ileocecectomy DATE OF PROCEDURE: 01/17/20 SURGEON: Baljeet Dos Santos M.D. ASST.: Martha Vo MS3 PREOPERATIVE DIAGNOSES: Cecal volvulus, type III POSTOPERATIVE DIAGNOSIS: Cecal volvulus, type III, no ischemia HISTORY: Patient with intermittent abdominal pain nausea and vomiting of several years duration. Extensive workup for this and underwent laparoscopic cholecystectomy a few months ago. She does have a history of chronic pancreatitis. She came back to the emergency room last night with another episode of pain, nausea and vomiting. Lipase was normal and her pancreas appeared normal on CT, but she was noted to have a very distended fluid-filled cecal cap which was displaced superiorly toward the umbilicus consistent with cecal volvulus. Recommendation was made to proceed with ileocecectomy due to high risk of recurrence with nonoperative management. PROCEDURE IN DETAIL: After informed consent was obtained and appropriate preoperative antibiotics continued patient was taken to the she was placed in supine position and general endotracheal anesthesia was administered. An NG tube was already in place to decompress the stomach and a Tavarez catheter was placed to decompress the bladder. The patient was prepped and draped in standard sterile fashion and local anesthesia was infused to the skin subcutaneous tissues in the periumbilical location. A 6 cm periumbilical incision was made and dissection was carried down to the fascia which was divided along the length of the incision. The preperitoneal fat was dissected and the peritoneum identified grasped and drawn up into the wound. This was sharply incised under direct vision and a very distended thin walled cecum immediately bulged up into the wound. The peritoneal incision was extended along the length of the skin incision. A small partial thickness injury to the cecum was created during this process but repaired with Lembert sutures. This was on the portion of the cecum which was later resected. The cecum was very distended but viable and was able to be folded back down toward the pelvis with passage of gas into the distal colon. The wound protector and GelPort were placed and carbon dioxide gas insufflated to an intra-abdominal pressure 15 which the patient tolerated well. Laparoscopic trochars were placed in the left lateral and suprapubic location under direct vision. The patient was noted to have omental adhesions in the right lower quadrants likely due to her previous history of appendectomy. These were taken down under direct vision using the LigaSure. The ascending colon was appropriately fixed to the retroperitoneum but the cecum was extremely redundant and mobile. The serosa of the distal ileum was divided using LigaSure to allow the cecum and ileum to be drawn up into the incision. The cecal cap and ileum were externalized through the wound protector and the mesentery divided using LigaSure close to the bowel wall. He ileum and the ascending colon were approximated along the antimesenteric surface using a Lembert suture and towels placed around the cecal cap to prevent contamination. Enterotomies were created and the cecum and terminal ileum and a WALKER stapler passed into the descending colon and more proximal ileum bringing the antimesenteric edges together and creating a wide stapled anastomosis. The enterotomy was then approximated with Allis clamps and a second fire of the WALKER stapler placed transversely, completing the anastomosis and excluding the enterotomy and the resected cecum and terminal ileum. The specimen was passed from the table along with all dirty instruments. The staple line was inverted with 3-0 silk Lembert sutures. The abdomen was then reinsufflated and the angle of sorrow reinforced with a Lembert suture placed laparoscopically. The anastomosis was widely patent and no mesenteric defect was palpable. The abdomen was copiously irrigated to clear. Hemostasis at the operative site was confirmed and the right colon was confirmed to be appropriately fixed to the retroperitoneum. The laparoscopic trochars removed under direct vision and hemostasis verified. The GelPort was then removed and the omentum drawn down over the bowel underlying the umbilical incision. Seprafilm was placed and the fascia closed under direct vision with a running PDS suture. Subcutaneous tissues were copiously irrigated and the skin closed at intervals with 4-0 Monocryl suture. The laparoscopic sites were closed with Monocryl suture as well and Dermabond placed. Telfa ally were placed at the umbilical incision and a gauze dressing placed. The patient was extubated and taken to the recovery room in good condition. Estimated blood loss is minimal. There were no complications. Specimen is cecum and ileum.
[2018-01-17] MEDS: Promethazine HCl 25 MG/ML VIAL IM PRN ×3 (02:17→16:39)
[2018-01-17] MEDS: Piperacillin/Tazobactam 3.375 GM in Sodium Chloride 0.9% 100 ML IVPB SCH ×3 (05:15→18:24)
[2018-01-17 05:26] LABS: Anion Gap 13 mmol/L (10-20); BUN (Urea Nitrogen) 6 mg/dL (7.0-18.7); Calc. Creatinine Clearance 107 mL/min (70-130); Calcium 8.9 mg/dL (7.8-10.44); Carbon Dioxide 23 mmol/L (22-29); Chloride 108 mmol/L (98-107); Estimated GFR-MDRD Greater than 90; Glucose 141 mg/dL (70-105); Lipase 34 U/L (8-78); Potassium 4.7 mmol/L (3.5-5.1); Sodium 139 mmol/L (136-145)
[2018-01-17 06:29] LABS: Band 10 % (5-11); Hemoglobin 10.1 g/dL (12.0-16.0); Lymphocytes 12 % (21-51); MDiff Complete? YES; Mean Corpuscular Hemoglobin 31.6 pg (27.0-31.0); Mean Corpuscular Volume 95.7 fL (78.0-98.0); Mean Platelet Volume 7.2 fL (7.4-10.4); Metamyelocyte 1 % (0-0); Monocytes 8 % (0-10); Neutrophil 69 % (42-75); PLT Morphology Comment Appears Adequate; Platelet Count 253 thou/uL (130-400); RBC Distribution Width 12.9 % (11.5-14.5); Red Blood Cell (RBC) Count 3.21 mill/uL (4.20-5.40); White Blood Cell (WBC) Count 11.6 thou/uL (4.8-10.8)
[2018-01-17] MEDS: Pantoprazole 40 MG VIAL IVP SCH ×2 (08:44→20:56)
[2018-01-17] MEDS: D5 1/2 NS w/20 mEq KCL 1,000 ML IV SCH ×2 (08:44→18:24)
[2018-01-17] MEDS: Enoxaparin Sodium 40 MG/0.4 ML SYRINGE SC SCH ×2 (08:45→08:47)
[2018-01-17] MEDS ORDERED: ALPRAZolam 1 MG TAB PO SCH (11:15)
--- NOTE | 2018-01-17 11:41 | PDOC.CTH ---
Cardiology Progress Note - Subjective Asked to see patient post-op given history of CAD and old RI. Patient with c/o anxiety due to not receiving Xanax in two days. Denies any CP, SOB, MILLER. Denies palpitations. - Objective Vital Signs Temp Pulse Resp BP Pulse Ox 01/17/18 07:55 97.8 F 65 18 103/69 99 01/17/18 04:33 98.4 F 79 16 120/76 95 01/16/18 23:51 98.6 F 81 16 117/72 92 L Weight 142 lb 11.2 oz 01/16/18 01/17/18 01/18/18 06:59 06:59 06:59 Intake Total 0 1790 Balance 0 1790 - Physical Examination General/Neuro: alert & oriented x3 Lungs: CTA Heart: RRR Abdomen: other: (mild distention. ) Extremities: other: (no edema) - Telemetry Telemetry Rhythm: No tele - Labs Result Diagrams: 01/17/18 04:31 01/17/18 04:31 - Assessment/Plan 1. Cecal volvulus s/p ileocecectomy 2. History of CAD. 3. 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 Anxiety Overall doing well from a cardiac standpoint. No adjustments. Will follow PRN.
--- NOTE | 2018-01-17 14:02 | CON ---
DATE OF CONSULTATION: 01/17/2018 REASON FOR CONSULTATION: Cardiac management. PRIMARY VENDING TECHNICIAN: Dr. Robert Anthony M.D. HISTORY OF PRESENT ILLNESS: Ms. Oakley is a 47-year-old woman, who has been seen by Dr. Robert Anthony in the past. She is seen for a cecal volvulus. She has had a previous history of CAD, status post john nt placement. She had a recent stress study negative for ischemia in 05/2017 at [facility]. Her las t echo in the office showed a normal LVEF. She denies chest pain or pressure noted. She was seen po stoperatively. She was not seen preop due to her going down for surgery. PAST MEDICAL HISTORY: Previous non-Q wave PA, hypertension, anxiety disorder. PAST SURGICAL HISTORY: Stent placed in the right coronary artery, hysterectomy, and appendectomy. ALLERGIES: 1. HYDROCODONE. 2. ERYTHROMYCIN. CURRENT MEDICATIONS: Include alprazolam, acetaminophen, Zocor, tramadol, Zantac, citalopram, aspirin , alprazolam, and Creon. REVIEW OF SYSTEMS: Ten-point review of systems are reviewed and as above negative. PHYSICAL EXAMINATION: GENERAL: Pain noted to the abdominal region after recent surgery. VITAL SIGNS: Blood pressure 120/70, pulse 80, and respirations 20. NEUROLOGIC: The patient is alert and oriented times 3 with no focal neurologic deficits. HEENT: Sclerae without icterus. Mouth has moist mucous membranes with normal pallor. NECK: No JVD. Carotid upstroke brisk. No bruits bilaterally. LUNGS: Clear to auscultation with unlabored respirations. BACK: No scoliosis or kyphosis. CARDIAC: Regular rate and rhythm with normal S1 and S2. No S3 or S4 noted. No significant rubs, murmurs, thrills, or gallops noted throughout the precordium. PMI is not displaced. There is no parasternal heave. ABDOMEN: Soft, nontender, nondistended. No peritoneal signs present. No hepatosplenomegaly. No abnormal striae. EXTREMITIES: 2+ femoral and 2+ dorsalis pedis pulses. No cyanosis, clubbing, or edema. SKIN: No gross abnormalities. IMPRESSION: 1. Cardiac management. 2. Recent laparoscopic ileocecectomy. The patient is doing well in the postoperative period. No chest pain or pressure noted. She appeare d to undergo surgery without complication or concern. At this point, continue outpatient management. No further recommendations.
[2018-01-17] MEDS ORDERED: ALPRAZolam 0.5 MG TAB PO PRN ×2 (14:07→14:49)
--- NOTE | 2018-01-17 15:59 | PDOC.GSPN ---
Surgery Progress Note: Subj - Subjective Narrative: Patient is feeling okay today. She is not having much postoperative pain. She has passed gas a couple times. She is not nauseated but is having quite a bit of heartburn. She usually takes Protonix twice a day as well as ranitidine. She has also had problems with anxiety since she only got one dose of Xanax yesterday and did not get her antidepressant. On physical examination her abdomen is soft and nondistended. Bowel sounds are quiet. There is a little bit of serosanguineous drainage on the dressing. 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 Awaiting return of bowel function. Tolerating clears. I have reordered her home antidepressants and lock acting Xanax and also her Creon per her request. I have increased her Protonix to twice daily and ordered some Carafate in case she is still having heartburn. She was encouraged to ambulate in the halls. He has been ambulating in her room and wearing her SCDs when she is in bed, but she refused Lovenox this morning. Surgery Progress Note: Obj - Vital signs Vital signs: Vital Signs - Most Recent Temp Pulse Resp BP Pulse Ox 97.8 F 66 18 107/70 97 01/17/18 11:40 01/17/18 11:40 01/17/18 11:40 01/17/18 11:40 01/17/18 11:40 Surgery Progress Note: Results - Labs Result Diagrams: 01/17/18 04:31 01/17/18 04:31 Lab results: Laboratory Results - last 24 hr 01/17/18 01/17/18 04:31 04:31 WBC 11.6 H RBC 3.21 L Hgb 10.1 L Hct 30.7 L MCV 95.7 MCH 31.6 H MCHC 33.0 RDW 12.9 Plt Count 253 MPV 7.2 L Neutrophils % (Manual) 69 Band Neuts % (Manual) 10 Lymphocytes % (Manual) 12 L Monocytes % (Manual) 8 Metamyelocytes % (Man) 1 H Plt Morphology Comment Appears Adequate Sodium 139 Potassium 4.7 Chloride 108 H Carbon Dioxide 23 Anion Gap 13 BUN 6 L Creatinine 0.65 Estimated GFR (MDRD) Greater than 90 Glucose 141 H Calcium 8.9 Lipase 34
[2018-01-17] MEDS: Pancrelipase DR 12000 1 CAP PO SCH (16:38)
[2018-01-17] MEDS: Sucralfate 1 GM/10 ML UDCUP PO SCH ×2 (16:38→20:56)
[2018-01-18] MEDS: Piperacillin/Tazobactam 3.375 GM in Sodium Chloride 0.9% 100 ML IVPB SCH ×5 (00:58→23:03)
[2018-01-18] MEDS: Promethazine HCl 25 MG/ML VIAL IM PRN (02:00)
[2018-01-18] MEDS: HYDROmorphone 10 mg/100 ml CADD IVPB PRN (02:05)
[2018-01-18 04:20] LABS: Anion Gap 15 mmol/L (10-20); BUN (Urea Nitrogen) Less than 4 mg/dL (7.0-18.7); Calc. Creatinine Clearance 95 mL/min (70-130); Calcium 8.9 mg/dL (7.8-10.44); Carbon Dioxide 21 mmol/L (22-29); Chloride 107 mmol/L (98-107); Estimated GFR-MDRD 85; Glucose 90 mg/dL (70-105); Potassium 3.8 mmol/L (3.5-5.1); Sodium 139 mmol/L (136-145)
[2018-01-18 05:24] LABS: #Eosinphils 0.1 thou/uL (0.0-0.7); #Lymphocytes 1.9 thou/uL (1.20-3.40); #Monocytes 0.7 thou/uL (0.11-0.59); #Neutrophils 5.1 thou/uL (1.40-6.50); %Basophils 0.2 % (0.0-1.0); %Eosinophils 1.2 % (0.0-10.0); %Lymphocytes 23.8 % (21.0-51.0); %Monocytes 9.3 % (0.0-10.0); %Neutrophils 65.5 % (42.0-75.0); Hemoglobin 9.8 g/dL (12.0-16.0); Mean Corpuscular HGB CONC 33.7 g/dL (32.0-36.0); Mean Corpuscular Hemoglobin 31.7 pg (27.0-31.0); Mean Corpuscular Volume 94.1 fL (78.0-98.0); Mean Platelet Volume 6.5 fL (7.4-10.4); Platelet Count 290 thou/uL (130-400); RBC Distribution Width 12.8 % (11.5-14.5); White Blood Cell (WBC) Count 7.8 thou/uL (4.8-10.8)
[2018-01-18] MEDS: Sucralfate 1 GM/10 ML UDCUP PO SCH ×4 (06:13→21:03)
[2018-01-18] MEDS: D5 1/2 NS w/20 mEq KCL 1,000 ML IV SCH ×3 (06:26→17:27)
[2018-01-18] MEDS: ALPRAZOLAM 1 MG PO SCH (08:09)
[2018-01-18] MEDS: Pancrelipase DR 12000 1 CAP PO SCH ×3 (08:11→17:26)
[2018-01-18] MEDS: Pantoprazole 40 MG VIAL IVP SCH ×2 (08:15→21:03)
[2018-01-18] MEDS: Citalopram 20 MG TAB PO SCH (08:15)
[2018-01-18] MEDS: Enoxaparin Sodium 40 MG/0.4 ML SYRINGE SC SCH (08:32)
[2018-01-18] MEDS ORDERED: ALPRAZolam 1 MG TAB PO SCH (09:00)
--- NOTE | 2018-01-18 12:54 | PDOC.CTH ---
<Yulia Jacobsen - Last Filed: 01/18/18 12:56> Cardiology Progress Note - Subjective The pt seen and examined. No overnight events. No cardiac complaints. She is tolerating clear liquid diet at this moment. - Objective Vital Signs Temp Pulse Resp BP Pulse Ox 01/18/18 11:10 98.6 F 67 12 111/74 92 L 01/18/18 08:10 98.6 F 81 12 130/78 95 01/18/18 04:00 98.5 F 67 16 114/73 95 Weight 142 lb 11.2 oz 01/17/18 01/18/18 01/19/18 06:59 06:59 06:59 Intake Total 1790 2300 Balance 1790 2300 - Physical Examination General/Neuro: alert & oriented x3 Neck: no JVD present Lungs: CTA Heart: RRR Abdomen: soft Extremities: other: (No edema) - Labs Result Diagrams: 01/18/18 04:52 01/18/18 03:59 - Assessment/Plan 1. Cecal volvulus type III with s/p ileocecectomy on 01/16/18 - tolerating clear diet; No complaints with ambulation 2. History of CAD with stent in RCA in 2013 and Cath in 2014 with mild CAD - stable 3. HTN - stable 4. Hyperlipidemia - Will resume Sstatin when she is more stable 5. COPD - stable with RA 6. Anxiety - stable at this moment MAR reviewed Review of Systems - Review of Systems Constitutional: reports: no symptoms reported EENTM: reports: no symptoms reported Respiratory: reports: no symptoms reported Cardiac (ROS): reports: no symptoms reported ABD/GI: reports: see HPI : reports: no symptoms reported Musculoskeletal: reports: no symptoms reported <Rupal Anthony - Last Filed: 01/18/18 17:40> Cardiology Progress Note - Objective Vital Signs Temp Pulse Resp BP Pulse Ox 01/18/18 15:55 98.8 F 72 16 106/71 93 L 01/18/18 11:10 98.6 F 67 12 111/74 92 L 01/18/18 08:10 98.6 F 81 12 130/78 95 Weight 142 lb 11.2 oz 01/17/18 01/18/18 01/19/18 06:59 06:59 06:59 Intake Total 1790 2300 Balance 1790 2300 - Labs Result Diagrams: 01/18/18 04:52 01/18/18 03:59 - Assessment/Plan Pt. seen and eval. by me. I agree with the A/P by the [employer]. Chest clear, RRR. cardiac status is stable. I will sign off. Please call again if she has any cardiac problems or complaints.
[2018-01-19] MEDS: D5 1/2 NS w/20 mEq KCL 1,000 ML IV SCH ×4 (03:55→23:51)
[2018-01-19] MEDS: Piperacillin/Tazobactam 3.375 GM in Sodium Chloride 0.9% 100 ML IVPB SCH ×4 (06:29→23:51)
[2018-01-19] MEDS: Sucralfate 1 GM/10 ML UDCUP PO SCH ×4 (06:30→21:27)
[2018-01-19] MEDS: Pancrelipase DR 12000 1 CAP PO SCH ×3 (06:33→18:35)
[2018-01-19] MEDS: Promethazine HCl 25 MG/ML VIAL IM PRN ×2 (06:39→14:09)
[2018-01-19] MEDS: Citalopram 20 MG TAB PO SCH (08:31)
[2018-01-19] MEDS: Pantoprazole 40 MG VIAL IVP SCH ×2 (08:31→21:27)
[2018-01-19] MEDS: ALPRAZOLAM 1 MG PO SCH (08:31)
[2018-01-19] MEDS: Enoxaparin Sodium 40 MG/0.4 ML SYRINGE SC SCH (08:33)
[2018-01-19] MEDS ORDERED: traMADol HCl 50 MG TAB PO PRN (13:10)
[2018-01-19] MEDS ORDERED: Fentanyl 100 MCG/2 ML VIAL SLOW IVP PRN (13:11)
[2018-01-19] MEDS: traMADol HCl 50 MG TAB PO PRN (21:27)
--- NOTE | 2018-01-19 21:48 | PDOC.GSPN ---
Surgery Progress Note: Subj - Subjective Narrative: Ms. Oakley is feeling better today. She is passing more gas and tolerating her diet. She has not yet had a bowel movement. She is afebrile with normal vital signs. Her abdominal wound is clean. The ally were removed today. Abdomen is soft with appropriate yen-incisional tenderness and bowel sounds present. Assessment/plan: Status post ileocecectomy awaiting return of bowel function. Tolerating full liquid diet and passing gas. Patient is chronically on laxatives so I will restart these. Surgery Progress Note: Obj - Vital signs Vital signs: Vital Signs - Most Recent Temp Pulse Resp BP Pulse Ox 98 F 84 16 127/80 97 01/19/18 20:00 01/19/18 20:00 01/19/18 20:00 01/19/18 20:00 01/19/18 20:00 Surgery Progress Note: Results - Labs Result Diagrams: 01/18/18 04:52 01/18/18 03:59
[2018-01-20] MEDS: traMADol HCl 50 MG TAB PO PRN ×3 (03:29→21:08)
[2018-01-20] MEDS: Promethazine HCl 25 MG/ML VIAL IM PRN ×2 (04:14→20:37)
[2018-01-20] MEDS: Sucralfate 1 GM/10 ML UDCUP PO SCH ×4 (06:53→20:33)
[2018-01-20] MEDS: Piperacillin/Tazobactam 3.375 GM in Sodium Chloride 0.9% 100 ML IVPB SCH (06:53)
[2018-01-20] MEDS: Pancrelipase DR 12000 1 CAP PO SCH ×3 (06:53→17:26)
[2018-01-20] MEDS: ALPRAZOLAM 1 MG PO SCH (08:50)
[2018-01-20] MEDS: Docusate 100 MG CAP PO SCH ×2 (08:50→20:33)
[2018-01-20] MEDS: Polyethylene Glycol 3350 17 GM Packet PO SCH (08:50)
[2018-01-20] MEDS: Pantoprazole 40 MG VIAL IVP SCH ×2 (08:50→20:33)
[2018-01-20] MEDS: Citalopram 20 MG TAB PO SCH (08:50)
[2018-01-20] MEDS: Enoxaparin Sodium 40 MG/0.4 ML SYRINGE SC SCH (08:51)
[2018-01-20] MEDS: D5 1/2 NS w/20 mEq KCL 1,000 ML IV SCH ×2 (10:45→20:33)
--- NOTE | 2018-01-20 15:16 | PDOC.GSPN ---
Surgery Progress Note: Subj - Subjective Narrative: Patient is still passing a lot of gas some is belching last but she hasn't had a bowel movement yet. 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 She is not nauseated today and is tolerating her diet. She is afebrile with normal vital signs. Her abdomen is still slightly distended but has bowel sounds and there is minimal serous sanguinous drainage from her midline incision. Likely from the foot with the diet for now. She was encouraged to ambulate frequently. Surgery Progress Note: Obj - Vital signs Vital signs: Vital Signs - Most Recent Temp Pulse Resp BP Pulse Ox 97.6 F 66 18 108/72 97 01/20/18 11:10 01/20/18 11:10 01/20/18 11:10 01/20/18 11:10 01/20/18 11:10 Surgery Progress Note: Results - Labs Result Diagrams: 01/18/18 04:52 01/18/18 03:59
[2018-01-21] MEDS: traMADol HCl 50 MG TAB PO PRN ×4 (03:50→21:38)
[2018-01-21] MEDS: D5 1/2 NS w/20 mEq KCL 1,000 ML IV SCH ×2 (03:51→13:10)
[2018-01-21] MEDS: Sucralfate 1 GM/10 ML UDCUP PO SCH ×4 (06:58→20:29)
[2018-01-21] MEDS: Pancrelipase DR 12000 1 CAP PO SCH ×3 (06:58→17:21)
[2018-01-21] MEDS: Polyethylene Glycol 3350 17 GM Packet PO SCH (08:29)
[2018-01-21] MEDS: ALPRAZOLAM 1 MG PO SCH (08:29)
[2018-01-21] MEDS: Pantoprazole 40 MG VIAL IVP SCH ×2 (08:30→20:29)
[2018-01-21] MEDS: Docusate 100 MG CAP PO SCH ×2 (08:30→20:29)
[2018-01-21] MEDS: Enoxaparin Sodium 40 MG/0.4 ML SYRINGE SC SCH (08:30)
[2018-01-21] MEDS: Citalopram 20 MG TAB PO SCH (08:30)
[2018-01-21] MEDS: Promethazine HCl 25 MG/ML VIAL IM PRN ×3 (09:28→20:29)
--- NOTE | 2018-01-21 10:39 | RAD ---
TWO VIEWS ABDOMEN: Date: 01-21-18 Provided Clinical History: Status post ileocecectomy. FINDINGS: Comparison is made with the study dated 01-16-18. Visualized lung bases appear clear. There is prominence of gaseous distention of colon. There is cons picuous colonic fecal retention. Cholecystectomy clips are seen in the right upper quadrant. No radio graphically apparent urinary tract calculi. IMPRESSION: 1. Prominent colonic fecal retention and gaseous distention of colon. POS: MARY
[2018-01-21] MEDS ORDERED: Milk Of Magnesia 30 ML UDCUP PO SCH (14:15)
--- NOTE | 2018-01-21 17:20 | PDOC.GSPN ---
Surgery Progress Note: Subj - Subjective Narrative: Patient feels fine and is passing lots of gas but still has not had a bowel movement. She feels the urge but nothing has happened. Problems with chronic constipation. Abdominal x-ray this morning showed a large amount of stool and gas in the colon but no evidence of small bowel distention. Abdomen is soft slightly distended with normal bowel sounds. Incision is healing well. Assessment and plan: Status post ileocecectomy. She has not yet had a bowel movement which I believe is due to exacerbation of her pre-existing constipation. She did require [employer] for several days but is off of that now and ambulating frequently. I recommended a suppository or enema to get things started but the patient declined this so I have ordered some milk of magnesia for her, with magnesium citrate if this is unsuccessful. Surgery Progress Note: Obj - Vital signs Vital signs: Vital Signs - Most Recent Temp Pulse Resp BP Pulse Ox 98.3 F 78 18 118/79 97 01/21/18 16:00 01/21/18 16:00 01/21/18 16:00 01/21/18 16:00 01/21/18 16:00 Surgery Progress Note: Results - Labs Result Diagrams: 01/18/18 04:52 01/18/18 03:59
[2018-01-21] MEDS ORDERED: Magnesium Citrate 300 ML BOT PO SCH (18:15)
[2018-01-22] MEDS: Promethazine HCl 25 MG/ML VIAL IM PRN ×2 (02:22→10:36)
[2018-01-22] MEDS: traMADol HCl 50 MG TAB PO PRN ×2 (04:03→10:35)
[2018-01-22] MEDS: Sucralfate 1 GM/10 ML UDCUP PO SCH ×2 (06:15→12:07)
[2018-01-22] MEDS: Pancrelipase DR 12000 1 CAP PO SCH ×2 (07:03→12:07)
[2018-01-22] MEDS: Enoxaparin Sodium 40 MG/0.4 ML SYRINGE SC SCH (09:16)
[2018-01-22] MEDS: Citalopram 20 MG TAB PO SCH (09:16)
[2018-01-22] MEDS: Docusate 100 MG CAP PO SCH (09:16)
[2018-01-22] MEDS: ALPRAZOLAM 1 MG PO SCH (09:17)
[2018-01-22] MEDS: Polyethylene Glycol 3350 17 GM Packet PO SCH (09:17)
[2018-01-22] MEDS: Pantoprazole 40 MG VIAL IVP SCH (09:17)
[2018-01-22 11:44] VITALS: BP 101/69; TEMP 98.5
--- NOTE | 2018-01-22 17:55 | DIS ---
FINAL DIAGNOSIS: Cecal volvulus. PROCEDURES: Ileocecectomy laparoscopic hand assisted on 01/16/2018. HISTORY: Ms. Oakley is a 47-year-old woman with chronic intermittent abdominal symptoms. She came i o the emergency room with recurrent abdominal pain and underwent a CT which was worrisome for cecal volvulus. Her pain was not improving, so recommendation was made to proceed to the operating room. She underwent an ileocecectomy for type 3 cecal volvulus on 01/16/2018 without event. Postoperative ly, she recovered slowly, but uneventfully. She had passage of flatus and tolerated a liquid diet, b ut was not having bowel movements. A plain film of the abdomen did not reveal any signs of small-bow el obstruction, but did reveal a large amount of stool and gas in the colon, so she was given some la xatives and had multiple bowel movements and relief of her abdominal bloating. Her diet was advanced and she was discharged home with instructions to resume her home medications. DISCHARGE MEDICATIONS: Alprazolam, aspirin, Celexa, Bentyl, Protonix, simvastatin, Zantac, p.r.n. ni troglycerin, tramadol and Phenergan. She [facility] 2 weeks' time and to avoid heavy lifting for 4 week s.
== END 2018-01-22 15:30 | disposition home or self-care (01) | DRG 330 ==
LOC: ERS 17:30 → OBSVTOIN 01-16 03:16 → 2SW 01-16 03:16 → SURG A 01-16 14:21 → SURG B 01-16 16:51
PROVIDERS: ADMIT Surgery; ATTEND Surgery
PROC: 0DTH4ZZ Resection of Cecum, Percutaneous Endoscopic Approach (ICD-10-PCS; principal; 2018-01-16)
DX: K56.2 Volvulus (principal); K86.1 Other chronic pancreatitis; I25.10 Atherosclerotic heart disease of native coronary artery without angina pectoris; I25.2 Old myocardial infarction; F10.11 Alcohol abuse, in remission; F41.9 Anxiety disorder, unspecified; F43.10 Post-traumatic stress disorder, unspecified; E78.5 Hyperlipidemia, unspecified; Z87.891 Personal history of nicotine dependence; I10 Essential (primary) hypertension; J44.9 Chronic obstructive pulmonary disease, unspecified
CPT/HCPCS: 36415; 74018; 74019; 74177; 80048; 80053; 80074; 81003; 81015; 83605; 83690; 85025; 86308; 87040; 87086; 87804; 88307; 96365; 96367; 96375; A4216; C9113; J0670; J1100; J1170; J1200; J1650; J1885; J2001; J2060; J2250; J2270; J2543; J2550; J2704; J3010; J7050

== ENCOUNTER 2018-02-04 16:13 | Emergency (ER) | payer OTHER ==
[~2018-02-04 16:13] MED LIST changes: -ISOVUE-370 76%-LOCM 1 ML ONE; +Iopamidol 370 76% 100 ML VIAL ONE
[2018-02-04 16:54] LABS: #Basophils 0.1 thou/uL (0.0-0.2); #Eosinphils 0.2 thou/uL (0.0-0.7); #Lymphocytes 2.2 thou/uL (1.20-3.40); #Monocytes 0.7 thou/uL (0.11-0.59); #Neutrophils 2.8 thou/uL (1.40-6.50); %Eosinophils 2.8 % (0.0-10.0); %Monocytes 11.8 % (0.0-10.0); %Neutrophils 47.4 % (42.0-75.0); Hemoglobin 11.9 g/dL (12.0-16.0); Mean Corpuscular HGB CONC 34.1 g/dL (32.0-36.0); Mean Corpuscular Hemoglobin 31.6 pg (27.0-31.0); Mean Corpuscular Volume 92.6 fL (78.0-98.0); Mean Platelet Volume 6.7 fL (7.4-10.4); Platelet Count 407 thou/uL (130-400); RBC Distribution Width 12.5 % (11.5-14.5); Red Blood Cell (RBC) Count 3.76 mill/uL (4.20-5.40); White Blood Cell (WBC) Count 5.9 thou/uL (4.8-10.8)
[2018-02-04 16:55] LABS: Bilirubin Negative (Negative); Blood, Urine Negative (Negative); Clarity CLEAR (Clear); Glucose, Urine (Dipstick) Negative (Negative); Leukocyte Negative (Negative); Nitrite Negative (Negative); Protein, Urine (Dipstick) Negative (Neg-Trace); Specific Gravity, Urine 1.005 (1.002-1.036); Urobilinogen 0.2 mg/dL (0.2-1.0)
[2018-02-04 17:15] LABS: ALT (SGPT) 11 U/L (8-55); AST (SGOT) 16 U/L (5-34); Alkaline Phosphatase 86 U/L (40-150); Anion Gap 9 mmol/L (10-20); BUN (Urea Nitrogen) 6 mg/dL (7.0-18.7); Bilirubin, Total 0.3 mg/dL (0.2-1.2); Calc. Creatinine Clearance 0 mL/min (70-130); Calcium 8.9 mg/dL (7.8-10.44); Carbon Dioxide 28 mmol/L (22-29); Chloride 104 mmol/L (98-107); Estimated GFR-MDRD 78; Globulin 2.8 g/dL (2.4-3.5); Glucose 111 mg/dL (70-105); Lipase 103 U/L (8-78); Potassium 3.3 mmol/L (3.5-5.1); Protein, Total 6.8 g/dL (6.0-8.3); Sodium 138 mmol/L (136-145)
[2018-02-04] MEDS ORDERED: Promethazine HCl 25 MG/ML VIAL ONE (17:55)
--- NOTE | 2018-02-04 18:37 | RAD ---
RADIOGRAPH CHEST 1 VIEW: 02/04/18 HISTORY: 47-year-old female with fever. FINDINGS: There are no air space densities, pulmonary edema, pneumothorax, or cardiomegaly. The lateral costop hrenic angles are sharp. IMPRESSION: No acute cardiopulmonary findings. jn [] POS: JIN
[2018-02-04] MEDS ORDERED: diphenhydrAMINE 50 MG/ML VIAL ONE (19:31)
[2018-02-04] MEDS ORDERED: Famotidine/PF 20 mg/2ml Vial ONE (19:31)
[2018-02-04] MEDS ORDERED: Fentanyl 100 MCG/2 ML VIAL SLOW IVP SCH (19:45)
[2018-02-04] MEDS ORDERED: Fentanyl 100 MCG/2 ML VIAL ONE (20:12)
--- NOTE | 2018-02-04 20:54 | CT ---
CT ABDOMEN WITH CONTRAST CT PELVIS WITH CONTRAST: DATE: 02/04/18 HISTORY: 47-year-old female two weeks status post bowel resection presents with fever and left lower quadrant abdominal pain. COMPARISON: 01/15/18. TECHNIQUE: IV injection of iodinated contrast media: Administered. Oral contrast media: Not administered. FINDINGS: The previously fluid0-filled, superiorly-displaced, dilated, pinched off cecum has been surgically re sected, and there is now a suture line at the medial aspect of the most proximal aspect of the right colon, which appears to be a [id number] anastomosis between the distal ileum and the ascending colo n. No evidence of colonic diverticulitis. Urinary bladder, bilateral kidneys, abdominal aorta, adrena ls, pancreas, liver, and spleen, are normal. Lung bases are grossly clear. No evidence of abscess, pn eumoperitoneum, or ascites. No hematoma identified. Right kidney is ptotic. Again noted are the hubert cystectomy clips. There is no inguinal hernia. IMPRESSION: 1. Interval resection of the cecum, followed by [id number] anastomosis between the distal ileu m and the remaining lower proximal right colon. 2. No evidence of complications. 3. Old, prior cholecystectomy. 4. No acute findings. SIMONE Barcenas POS: SWAPNIL
[2018-02-04] MEDS ORDERED: Dicyclomine 20 MG TAB ONE (21:13)
== END 2018-02-04 21:40 | disposition home or self-care (01) ==
LOC: ERS 16:13
DX: G89.18 Other acute postprocedural pain (principal); E78.5 Hyperlipidemia, unspecified; F32.9 Major depressive disorder, single episode, unspecified; F41.9 Anxiety disorder, unspecified; F43.10 Post-traumatic stress disorder, unspecified; I25.2 Old myocardial infarction; J45.909 Unspecified asthma, uncomplicated; K86.1 Other chronic pancreatitis; Z87.891 Personal history of nicotine dependence; Z79.82 Long term (current) use of aspirin; Z79.899 Other long term (current) drug therapy
CPT/HCPCS: 36415; 71045; 74177; 80053; 81003; 83605; 83690; 85025; 87040; 96365; 96375; J1200; J2270; J2550; J3010; S0028

== ENCOUNTER 2018-04-30 12:39 | Emergency (ER) | payer OTHER ==
[2018-04-30 13:26] LABS: Mean Corpuscular HGB CONC 31.7 g/dL (32.0-36.0); Mean Corpuscular Hemoglobin 29.2 pg (27.0-31.0); Mean Corpuscular Volume 92.1 fL (78.0-98.0); Mean Platelet Volume 7.8 fL (7.4-10.4); Platelet Count 244 thou/uL (130-400); RBC Distribution Width 13.4 % (11.5-14.5); Red Blood Cell (RBC) Count 4.44 mill/uL (4.20-5.40); White Blood Cell (WBC) Count 5.7 thou/uL (4.8-10.8)
[2018-04-30 13:37] LABS: Bilirubin Negative (Negative); Blood, Urine Small (Negative); Clarity CLEAR (Clear); Glucose, Urine (Dipstick) Negative (Negative); Leukocyte Negative (Negative); Nitrite Negative (Negative); Protein, Urine (Dipstick) Negative (Neg-Trace); Urobilinogen 0.2 mg/dL (0.2-1.0)
[2018-04-30 13:39] LABS: Bacteria/HPF None Seen HPF (None Seen); Hyaline Casts/LPF 0-3 HYALINE CAST LPF (0-3 Hyaline); RBC/HPF 0-3 HPF (0-3); Squamous Epithelial None Seen HPF (0-3); WBC/HPF None Seen HPF (0-3)
[2018-04-30 13:40] LABS: Pregnancy Test - Urine (BHCG) Negative (Negative); Pregu Control Background? CLEAR/WHITE (CLR/WHITE); Pregu Control Bar Appear? YES (CONTROL BAR); Specific Gravity 1.003 (1.002-1.036); Specific Gravity, Urine 1.003 (1.002-1.036)
[2018-04-30 13:47] LABS: ALT (SGPT) 14 U/L (8-55); AST (SGOT) 18 U/L (5-34); Albumin 4.7 g/dL (3.5-5.0); Alkaline Phosphatase 86 U/L (40-150); Anion Gap 11 mmol/L (10-20); BUN (Urea Nitrogen) 8 mg/dL (7.0-18.7); Bilirubin, Total 0.4 mg/dL (0.2-1.2); Calc. Creatinine Clearance 0 mL/min (70-130); Calcium 9.7 mg/dL (7.8-10.44); Carbon Dioxide 29 mmol/L (22-29); Chloride 103 mmol/L (98-107); Estimated GFR-MDRD 74; Globulin 3.1 g/dL (2.4-3.5); Glucose 112 mg/dL (70-105); Lipase 87 U/L (8-78); Lymphocytes 40 % (21-51); MDiff Complete? YES; Monocytes 6 % (0-10); Neutrophil 54 % (42-75); PLT Morphology Comment Appears Adequate; Potassium 3.7 mmol/L (3.5-5.1); Protein, Total 7.8 g/dL (6.0-8.3); Sodium 139 mmol/L (136-145)
[2018-04-30] MEDS ORDERED: Promethazine HCl 25 MG/ML VIAL ONE (14:32)
[2018-04-30] MEDS ORDERED: diphenhydrAMINE 25 MG CAP ONE (14:44)
[2018-04-30] MEDS ORDERED: Iopamidol 370 76% 50 ML VIAL FS ONE (16:42)
[2018-04-30] MEDS ORDERED: ISOVUE-370 76%-LOCM 1 ML ONE (16:42)
--- NOTE | 2018-04-30 17:27 | CT ---
ABDOMEN AND PELVIC CT SCAN WITH IV CONTRAST 04/30/18 HISTORY: 47-year-old female with history of right sided abdominal pain. Prior cholecystectomy and bowel resect ion as well as hysterectomy and appendectomy. The visualized lung zones are clear. Small hiatal hernia. Status post cholecystectomy. Liver, pancrea s, spleen, adrenal glands are unremarkable. No renal calculus or evidence for acute obstruction. N o evidence of large or small bowel obstruction. No abscess, adenopathy, or abnormal fluid collection within the abdomen or pelvis. IMPRESSION: Unremarkable abdomen and pelvic CT scan. No significant acute process. Stable from prior study. POS: [facility]
[2018-04-30] MEDS ORDERED: Ketorolac Tromethamine 30 MG/ML VIAL ONE (17:33)
== END 2018-04-30 17:49 | disposition home or self-care (01) ==
LOC: ERS 12:39
DX: R10.9 Unspecified abdominal pain (principal); R11.2 Nausea with vomiting, unspecified; I25.2 Old myocardial infarction; E78.5 Hyperlipidemia, unspecified; J44.9 Chronic obstructive pulmonary disease, unspecified; F41.9 Anxiety disorder, unspecified; F32.9 Major depressive disorder, single episode, unspecified; F43.10 Post-traumatic stress disorder, unspecified; Z87.891 Personal history of nicotine dependence; Z79.899 Other long term (current) drug therapy; Z79.82 Long term (current) use of aspirin
CPT/HCPCS: 74177; 80053; 81003; 81015; 81025; 83690; 85025; 96365; 96375; J1885; J2550

== ENCOUNTER 2018-07-15 07:53 | Emergency (ER) | payer OTHER ==
[2018-07-15] MEDS ORDERED: diphenhydrAMINE 50 MG/ML VIAL ONE (08:55)
[2018-07-15] MEDS ORDERED: Ondansetron PF 4 MG/2 ML Vial ONE (08:55)
[2018-07-15 09:00] LABS: #Basophils 0.1 thou/uL (0.0-0.2); #Lymphocytes 1.5 thou/uL (1.20-3.40); #Monocytes 0.4 thou/uL (0.11-0.59); #Neutrophils 4.2 thou/uL (1.40-6.50); %Basophils 1.4 % (0.0-1.0); %Eosinophils 0.5 % (0.0-10.0); %Lymphocytes 24.3 % (21.0-51.0); %Monocytes 6.7 % (0.0-10.0); Hemoglobin 14.6 g/dL (12.0-16.0); Mean Corpuscular HGB CONC 31.5 g/dL (32.0-36.0); Mean Corpuscular Hemoglobin 29.4 pg (27.0-31.0); Mean Corpuscular Volume 93.5 fL (78.0-98.0); Mean Platelet Volume 8.6 fL (7.4-10.4); Platelet Count 274 thou/uL (130-400); RBC Distribution Width 14.2 % (11.5-14.5); Red Blood Cell (RBC) Count 4.98 mill/uL (4.20-5.40); White Blood Cell (WBC) Count 6.2 thou/uL (4.8-10.8)
[2018-07-15 09:10] LABS: Bilirubin Negative (Negative); Blood, Urine Trace (Negative); Clarity CLEAR (Clear); Glucose, Urine (Dipstick) Negative (Negative); Leukocyte Negative (Negative); Nitrite Negative (Negative); Protein, Urine (Dipstick) Negative (Neg-Trace); Specific Gravity, Urine 1.003 (1.002-1.036); Urobilinogen 0.2 mg/dL (0.2-1.0); pH, Urine 6.5 (5.0-9.0)
[2018-07-15 09:13] LABS: Bacteria/HPF None Seen HPF (None Seen); Hyaline Casts/LPF 0-3 HYALINE CAST LPF (0-3 Hyaline); RBC/HPF 0-3 HPF (0-3); Squamous Epithelial None Seen HPF (0-3); WBC/HPF None Seen HPF (0-3)
[2018-07-15] MEDS ORDERED: Famotidine/PF 20 mg/2ml Vial SLOW IVP SCH (09:15)
[2018-07-15] MEDS ORDERED: Promethazine HCl 25 MG/ML VIAL ONE (09:48)
[2018-07-15] MEDS ORDERED: ISOVUE-370 76%-LOCM 1 ML ONE (10:19)
--- NOTE | 2018-07-15 10:55 | CT ---
CT ABDOMEN AND PELVIS WITH IV CONTRAST: Date: 07/15/18 HISTORY: Abdominal pain. Small bowel obstruction. COMPARISON: 04/30/18. FINDINGS: Lung bases are clear. Gallbladder surgically absent. The liver, spleen, kidneys, adrenal glands, and pancreas otherwise have a normal CT appearance. No enlarged lymph nodes or free fluid. Urinary bladde r is unremarkable. Lack of oral contrast limits evaluation of the bowel. No evidence of obstruction. Postoperative hall es in the right lower quadrant are evident. IMPRESSION: No evidence of bowel obstruction. No significant abnormalities are demonstrated. POS: MARYH
[2018-07-15 11:16] LABS: Albumin 4.3 g/dL (3.5-5.0)
[2018-07-15 11:17] LABS: Chloride 104 mmol/L (98-107); Potassium 4.2 mmol/L (3.5-5.1); Sodium 138 mmol/L (136-145)
[2018-07-15 11:18] LABS: Calcium 9.3 mg/dL (7.8-10.44)
[2018-07-15 11:19] LABS: Globulin 2.7 g/dL (2.4-3.5); Glucose 82 mg/dL (70-105)
[2018-07-15 11:20] LABS: Anion Gap 14 mmol/L (10-20); Carbon Dioxide 24 mmol/L (22-29)
[2018-07-15 11:21] LABS: Bilirubin, Total 0.7 mg/dL (0.2-1.2)
[2018-07-15 11:22] LABS: Alkaline Phosphatase 89 U/L (40-150); Calc. Creatinine Clearance 0 mL/min (70-130); Estimated GFR-MDRD 73
[2018-07-15 11:23] LABS: BUN (Urea Nitrogen) 8 mg/dL (7.0-18.7)
[2018-07-15 11:24] LABS: ALT (SGPT) 30 U/L (8-55); AST (SGOT) 29 U/L (5-34)
[2018-07-15 11:25] LABS: Lipase 47 U/L (8-78)
== END 2018-07-15 11:41 | disposition home or self-care (01) ==
LOC: ERS 07:53
DX: K59.00 Constipation, unspecified (principal); I25.2 Old myocardial infarction; E78.5 Hyperlipidemia, unspecified; J44.9 Chronic obstructive pulmonary disease, unspecified; F41.9 Anxiety disorder, unspecified; F32.9 Major depressive disorder, single episode, unspecified; Z87.891 Personal history of nicotine dependence; Z79.899 Other long term (current) drug therapy; Z79.82 Long term (current) use of aspirin
CPT/HCPCS: 36415; 74177; 80053; 81003; 81015; 83690; 85025; 96361; 96365; 96366; 96375; J1200; J2405; J2550; S0028

== ENCOUNTER 2018-07-19 15:47 | Outpatient (CLI) | payer OTHER | END 2018-07-19 15:48 | disposition home or self-care (01) | LOC: BICMAMMO 15:47 | PROVIDERS: ATTEND Family Medicine | DX: Z12.31 Encounter for screening mammogram for malignant neoplasm of breast (principal) | CPT/HCPCS: 77063; 77067 ==

== ENCOUNTER 2018-12-13 09:10 | Emergency (ER) | payer OTHER ==
[2018-12-13] MEDS ORDERED: Acetaminophen 325 MG TAB ONE (10:17)
[2018-12-13 11:05] LABS: Troponin I Less than 0.010 ng/mL (< 0.028)
--- NOTE | 2018-12-17 09:38 | EKG ---
Test Reason : Blood Pressure : / mmHG Vent. Rate : 059 BPM Atrial Rate : 059 BPM P-R Int : 136 ms QRS Dur : 094 ms QT Int : 460 ms P-R-T Axes : 048 033 036 degrees QTc Int : 455 ms Sinus bradycardia Incomplete right bundle branch block Borderline ECG Confirmed by FRANK VAN ([id number]), state editor DARRYN CHANG ([id number]) on 12/17/2018 9:38:20 AM Referred By: Confirmed By:FRANK VAN
== END 2018-12-13 12:10 | disposition short-term general hospital (02) ==
LOC: ERS 09:10
DX: R07.9 Chest pain, unspecified (principal); R51 Headache; R42 Dizziness and giddiness; I25.2 Old myocardial infarction; E78.5 Hyperlipidemia, unspecified; E78.00 Pure hypercholesterolemia, unspecified; J44.9 Chronic obstructive pulmonary disease, unspecified; F41.9 Anxiety disorder, unspecified; F32.9 Major depressive disorder, single episode, unspecified; F17.210 Nicotine dependence, cigarettes, uncomplicated
CPT/HCPCS: 36415; 93005; 96360; 96361

== ENCOUNTER 2019-01-11 17:09 | Emergency (ER) | payer OTHER ==
--- NOTE | 2019-01-11 18:05 | RAD ---
EXAM: Left ankle: 3 views INDICATIONS: Pain and swelling. Injury COMPARISON: None. FINDINGS: Soft tissue swelling laterally. No evidence of fracture. No osseous abnormality. IMPRESSION: No acute finding
[2019-01-11] MEDS ORDERED: Ketorolac Tromethamine 30 MG/ML VIAL ONE (18:51)
== END 2019-01-11 19:20 | disposition home or self-care (01) ==
LOC: ERS 17:09
DX: M25.572 Pain in left ankle and joints of left foot (principal); I25.2 Old myocardial infarction; E78.5 Hyperlipidemia, unspecified; J44.9 Chronic obstructive pulmonary disease, unspecified; F41.9 Anxiety disorder, unspecified; F32.9 Major depressive disorder, single episode, unspecified; Z87.891 Personal history of nicotine dependence; Z79.82 Long term (current) use of aspirin; Z79.899 Other long term (current) drug therapy
CPT/HCPCS: 96372; J1885